=== PATIENT | male | born 1935 | race Caucasian/White ===

== ENCOUNTER 2018-05-29 08:00 | Inpatient (IN) | payer OTHER ==
--- NOTE | 2018-05-29 09:11 | RAD REPORT ---
EXAM DESCRIPTION: RAD - Chest Pa And Lat (2 Views) - 05/29/2018 8:33 am CLINICAL HISTORY: Preop chest, pending left knee surgery, history of pacemaker and stent placement, hypertension COMPARISON: February 2017 TECHNIQUE: PA and lateral views of the chest were obtained. FINDINGS: The lungs are clear of an acute infiltrate, failure or mass lesion. Patient has chronic in terstitial lung disease matching the prior study. Left subclavian pacemaker in place. Heart size is normal and central vasculature is within normal limits. No pleural effusion or pneumothorax seen. No acute bony finding noted. No aortic abnormality. IMPRESSION: Mild baseline chronic interstitial lung disease similar to March 21. No acute finding .
[2018-05-29 09:13] LABS: Absolute Lymphocytes (CBC) 1.5 K/uL (0.7-4.9); Absolute Neutrophil 5.6 K/uL (1.8-8.0); Eosinophils % 4.9 % (0-4.4); Hematocrit 42.2 % (39.6-49.0); Lymphocytes % 17.1 % (15.3-44.8); MCH 31.5 pg (27.0-35.0); MCV 92.8 fL (80-100); MPV 8.8 fL (7.6-11.3); RBC Red Blood Cell Count 4.54 M/uL (4.33-5.43)
[2018-05-29 09:17] LABS: Protime INR 0.96; Urine Appearance CLEAR; Urine Bilirubin NEGATIVE (NEG); Urine Blood NEGATIVE (NEG); Urine Color YELLOW; Urine Glucose NEGATIVE (NEG); Urine Protein NEGATIVE (NEG); Urine Specific Gravity 1.025 (1.005-1.030); Urine Urobilinogen 0.2 mg/dL (0.2-1.0); Urine pH 5.5 (5.0-7.0)
[2018-05-29 09:18] LABS: Urine Microscopic Reflex NO UMIC
[2018-05-29 09:29] LABS: Albumin 3.6 g/dL (3.4-5.0); Bilirubin Direct 0.1 mg/dL (0-0.2); Bilirubin Total 0.4 mg/dL (0.2-1.0)
[2018-05-29 09:30] LABS: Albumin 3.6 g/dL (3.4-5.0); Bilirubin Total 0.4 mg/dL (0.2-1.0); Potassium 3.8 mmol/L (3.5-5.1); Protein, Total 6.9 g/dL (6.4-8.2)
--- NOTE | 2018-05-29 15:19 | EKG ---
Test Date: 2018-05-29 Test Time: 08:19:55 [employer]: JD MEASUREMENT RESULTS: Intervals: Rate: 64 RI: 216 QRSD: 174 QT: 456 QTc: 470 [place]: P: 44 RI: 216 QRS: 245 T: 13 INTERPRETIVE STATEMENTS: Atrial-Ventricular Dual-Paced rhythm occasional premature atrial complexes Abnormal ECG Compared to ECG 08/14/2015 16:07:48 significant changes have occurred, paced rhythm is now present Electronically Signed On 05-29-18 15:19:01 CDT by Farhan Perez
--- OUTSIDE RECORDS SUMMARY | 2018-06-04 05:51 | XMS REPORT | Clinical Summary ---
:1935 Author Organization [facility] Address [address] [place] [address] Care Team Providers Name Role Phone Josue Blanco MD Primary Care Provider Allergies Active Allergy Reactions Severity Noted Date Comments Codeine 09/05/2016 Current Medications Prescription Sig. Disp. Refills Start Date End Date Status amLODIPine (NORVASC) 10 Take 10 mg 3 08/29/2016 Active mg tablet by mouth once daily. levothyroxine Take 100 3 06/24/2016 Active (SYNTHROID, LEVOXYL) 100 mcg by mcg tablet mouth once daily. lisinopril TAKE 1 3 07/04/2016 Active (PRINIVIL,ZESTRIL) 20 mg TABLET tablet (20MG) BY ORAL ROUTE 2 TIMES EVERY DAY hydroCHLOROthiazide Take 12.5 Active (HYDRODIURIL) 12.5 MG mg by mouth tablet daily. aspirin (ASPIR-81) 81 MG Aspir-81 Active enteric coated tablet metoprolol tartrate Take 1 180 tablet 3 11/13/2017 11/14/19 Active (LOPRESSOR) 50 mg tablet tablet (50 19 mg total) by mouth 2 (two) times a day. carvedilol (COREG) 6.25 Take 1 180 tablet 3 11/09/2016 11/10/19 MG tablet tablet 18 (6.25 mg total) by mouth 2 (two) times a day with meals. carvedilol (COREG) 3.125 TAKE 1 11/14/19 Discontinued MG tablet TABLET BY 18 MOUTH TWICE A DAY Active Problems Problem Noted Date Shortness of breath 09/05/2016 Coronary artery disease involving mary's igloo coronary artery of mary's igloo heart 09/05 without angina pectoris History of pacemaker 09/05/2016 Essential hypertension 09/05/2016 Pure hypercholesterolemia 09/05/2016 Encounters Date Type Specialty Care Team Description 05/07/2018 Office Visit Cardiology Tony Colbert MD Coronary artery disease involving mary's igloo coronary artery of mary's igloo heart without angina pectoris (Primary Dx); History of pacemaker 11/13/2017 Office Visit Cardiology Tony Colbert MD Coronary artery disease involving mary's igloo coronary artery of mary's igloo heart without angina pectoris (Primary Dx); History of pacemaker after 06/03/2017 Family History Medical History Relation Name Comments Heart disease Sister Hypertension Sister Relation Name Status Comments Father Mother Sister Social History Tobacco Use Types Packs/Day Years Used Date Former Smoker Smokeless Tobacco: Never Used Alcohol Use Drinks/Week oz/Week Comments No Sex Assigned at Date Recorded Not on file Last Filed Vital Signs Vital Sign Reading Time Taken Blood Pressure 173/79 05/07/2018 3:01 PM CDT Pulse 60 05/07/2018 3:01 PM CDT Temperature - - Respiratory Rate - - Oxygen Saturation - - Inhaled Oxygen Concentration - - Weight 97.5 kg (215 lb) 05/07/2018 3:01 PM CDT Height 177.8 cm (5' 10") 05/07/2018 3:01 PM CDT Body Mass Index 30.85 05/07/2018 3:01 PM CDT Plan of Treatment Date Type Specialty Care Team Description 11/05/2018 Office Visit Cardiology Tony Colbert MD [address] [place] [id number] Health Maintenance Due Date Last Done Comments SHINGRIX VACCINE (#1) 1984 ZOSTER VACCINE 1994 PNEUMOCOCCAL POLYSACCHARIDE VACCINE AGE 65 AND OVER 1999 PNEUMOCOCCAL-13 1999 INFLUENZA VACCINE 02/27/2018 Procedures Procedure Name Priority Date/Time Associated Diagnosis Comments CV PACEMAKER DEFIB ILR Routine 05/07/2018 12:00 AM INTERROGATION CDT after 06/03/2017 Results CV pacemaker defib or ilr interrogation (05/07/2018) Narrative Performed At after 06/03/2017 Insurance Payer Benefit Plan / Group Subscriber ID Type Phone Address A[employer]NA MEDICARE AETNA MEDICARE HMO/PPO [facility] xxxxxxxx HMO
--- OUTSIDE RECORDS SUMMARY | 2018-06-04 05:51 | XMS REPORT ---
:1935 Author Organization [employer] Care Team Providers Name Role Phone Augustine Perez Provider Role Unavailable Allergies, Adverse Reactions, Alerts Substance Reaction Event Type Latex Info Not Available Drug Allergy codeine Info Not Available Drug Allergy Problems Problem Type Condition Code Onset Dates Condition Status Assessment Primary osteoarthritis of right M17.11 Active knee Assessment Primary osteoarthritis of left knee M17.12 Active Problem Other chronic pain G89.29 Active Problem Pain in left knee M25.562 Active Problem Pain in right knee M25.561 Active Assessment Pain in right knee M25.561 Active Assessment Pain in left knee M25.562 Active Problem 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 Medications Medication Code Code Instructions Start End Status Dosage System Date Date Amlodipine Besylate ND 0 Active not defined Metoprolol Tartrate [facility] 93845-24 Active not 94- defined Hydrochlorothiazide [facility] 11507-97 Active not 20- defined Aspir-81 [facility] 20892-67 Active not defined Lisinopril [facility] 34654-20 Active not 07-30 defined Levothyroxine Sodium [facility] 97386-45 Active not 07-30 defined Results No Known Results Summary Purpose [employer] Submission
[2018-06-04] MEDS ORDERED: Ringers Lactate 1,000 ML IV ONE ×2 (06:14→08:52)
[2018-06-04] MEDS ORDERED: CEFAZOLIN/SWI 1gm 1 GM/10 ML SYR ONE (06:14)
[2018-06-04] MEDS ORDERED: TRANEXAMIC ACID 1,000 MG in NA CHLORIDE 0.9% 50 ML IV SCH (07:00)
[2018-06-04] MEDS ORDERED: BUPIVACA 0.25%/EPI 0.0005% MDV 50 ML VIAL ONE (07:06)
[2018-06-04] MEDS ORDERED: NA CHLORIDE 0.9% 250 ML ONE (07:06)
[2018-06-04] MEDS ORDERED: DEXAMETHASONE 4 MG/ML VIAL ONE (07:12)
[2018-06-04] MEDS ORDERED: ROPLVACAINE HCL 40 ML ONE (07:12)
[2018-06-04] MEDS ORDERED: MIDAZOLAM HCL 2 MG/2 ML INJ ONE (07:13)
[2018-06-04] MEDS ORDERED: FENTANYL CITR 250 MCG/5 ML ONE (07:14)
[2018-06-04] MEDS ORDERED: PROPOFOL 200 MG/20 ML VIAL IV ONE (07:42)
[2018-06-04] MEDS ORDERED: LIDOCAINE 1% MPF 2 ML AMPULE ONE (07:43)
--- NOTE | 2018-06-04 11:45 | P.BOP ---
Preoperative diagnosis: LEFT KNEE PRIMARY OSTEOARTHRITIS Postoperative diagnosis: SAME Primary procedure: LEFT KNEE TKA POST. STABILIZED ROTATING PLATFORM W/ COMP. OTONIEL. TIBIAL CUT Marketing Information Coordinator: RASHAD AKINS (GAVE 1st ASSIST THROUGH CASE) Estimated blood loss: 100 mL Specimen: SOFT TISSUE AND BONE SHARDS DEBRIDED Findings: EBURNATED BONE MED. FEM. COMPARTMENT Anesthesia: General Complications: None Implants: RP REVISION TRAY sz4;SIGMA 4 PS FEMUR;[id number];INSERT RP4 x 10mm Fluids & blood products: SIMPLEX HV W/GENT; INJECTED 0.25%MARCAINE 30 mL Transferred to: Recovery Room Condition: Good
[2018-06-04] MEDS ORDERED: DOCUSATE NA 100 MG CAP PO PRN (12:13)
[2018-06-04] MEDS ORDERED: ONDANSETRON 4 MG/2 ML VIAL IV PRN (12:13)
[2018-06-04] MEDS ORDERED: MAGNESIUM HYDROXIDE 8% 30 ML PO PRN (12:13)
[2018-06-04] MEDS: MEPERIDINE HCL 50 MG/ML AMP ONE ×3 (12:30→12:45)
[2018-06-04 12:37] LABS: Hematocrit 40.4 % (39.6-49.0)
--- NOTE | 2018-06-04 13:01 | RAD REPORT ---
EXAM DESCRIPTION: RAD - Knee Left 2 View - 06/04/2018 12:51 pm CLINICAL HISTORY: PACU S/P L TKA COMPARISON: No comparisons FINDINGS: Left total knee arthroplasty has been performed. Skin annmarie are noted. A small amount of air is present in the joint space. No unexpected hardware finding.
[2018-06-04] MEDS: Ringers Lactate 1,000 ML IV SCH (13:46)
[2018-06-04] MEDS: MORPHINE 4 MG/ML SYR IV PRN ×2 (14:12→20:49)
[2018-06-04] MEDS: CEFAZOLIN/SWI 1gm 1 GM/10 ML SYR IV SCH ×2 (15:14→20:38)
[2018-06-04 17:42] VITALS: BMI 30.1
[2018-06-04] MEDS ORDERED: LISINOPRIL 20 MG TAB PO SCH (21:00)
[2018-06-04] MEDS ORDERED: METOPROLOL TAR 50 MG TAB PO SCH (21:00)
[2018-06-05] MEDS: MORPHINE 4 MG/ML SYR IV PRN ×2 (01:55→13:25)
[2018-06-05] MEDS: LEVOTHYROXINE SOD 0.1 MG TAB PO SCH (05:29)
[2018-06-05] MEDS: AMLODIPINE 10 MG TAB PO SCH (05:30)
[2018-06-05] MEDS: ENOXAPARIN 40 MG/0.4 ML SQ SCH (05:31)
[2018-06-05 05:38] LABS: Hematocrit 36.9 % (39.6-49.0)
[2018-06-05] MEDS: hydroCHLOROthiazide 12.5 MG CAP PO SCH (05:56)
[2018-06-05] MEDS: HYDROCODONE/APAP 7.5/325 MG TAB PO PRN ×4 (05:56→21:26)
[2018-06-05] MEDS ORDERED: hydroCHLOROthiazide 12.5 MG CAP PO SCH (06:00)
[2018-06-05] MEDS ORDERED: AMLODIPINE 10 MG TAB PO SCH (06:00)
[2018-06-05] MEDS: Ringers Lactate 1,000 ML IV SCH (08:13)
[2018-06-05] MEDS: METOPROLOL TAR 50 MG TAB PO SCH ×2 (09:03→21:28)
[2018-06-05] MEDS: LISINOPRIL 20 MG TAB PO SCH ×2 (09:03→21:29)
[2018-06-05] MEDS: ASPIRIN EC 81 MG TAB PO SCH (09:06)
--- NOTE | 2018-06-05 20:41 | P.PN ---
Date of Service: 06/05/18 (POD#1) S: THIS PATIENT IS COMPLAINING OF PAIN THAT RADIATES FROM THE POSTERIOR LEFT BUTTOCK DOWN TO THE BOTTOM OF HIS LEFT FOOT. HE IS DESCRIBING PAIN INTENSITIES 8, 0, 5, 8, 6, 8/10. THE PATIENT HAS STOPPED HIS CPM BECAUSE OF HIS DISCOMFORT. HE WAS COMPLAINING OF DIZZINESS DURING HIS MORNING PHYSICAL THERAPY SESSION, BUT WAS ABLE TO STAND BY THE BED AND MOVED TO SUPPORTED SITTING WITH THE MAXIMUM ASSIST. O: VSS; AFEBRILE; HGB 12.7 THIS MORNING, DOWN FROM 13.7 POSTOPERATIVELY. BANDAGE IS CLEAN AND DRY. NEUROVASCULAR EXAM IS INTACT. JACKSON'S SIGN IS NEGATIVE. REVIEW OF POSTOPERATIVE X-RAY SHOWS EXCELLENT POSITION FOR THIS PATIENT'S LEFT TOTAL KNEE ARTHROPLASTY COMPONENTS. SO FAR POSTOPERATIVELY THE PATIENT AT 1 pm HAS TAKEN A TOTAL OF FOUR NORCO 7.5/325 TABLETS, 2 TABLETS TAKEN AT APPROXIMATELY 6 am AND 10 am. HE HAS ALSO TAKEN 4 MG IV DOSES OF MORPHINE AT 2:15 pm AND 9 pm YESTERDAY WITH THE THIRD DOSE TAKEN AT 2 am TODAY. A: THIS PATIENT'S INTENSITY OF PAIN RADIATING FROM THE POSTERIOR HIP TO THE BOTTOM OF THE FOOT IS NOT AN UNUSUAL FLARE OF SCIATICA SOMETIMES CAUSED BY SITTING UP WITH THE HOSPITAL BED AND THE CPM MACHINE REPETITIVELY REACHING THE STRAIGHT LEG 0 POSITION SIMULATING A PROVOCATIVE STRAIGHT LEG RAISING TEST FOR SCIATICA. THE PATIENT HAS BEEN INSTRUCTED TO KEEP THE HEAD OF THE BED FLAT WHEN USING HIS CPM MACHINE TO AVOID THE STRETCH TO THE SCIATIC NERVE. I HAVE ADJUSTED THE PATIENT'S MORPHINE DOSE TO BE REDUCED TO 2 MG TO AVOID DIZZINESS. P: CONTINUE MOBILIZATION TOLERATED. I HAVE EMPHASIZED BED EXERCISES TO BE DONE BETWEEN THERAPY SESSIONS WITH UPPER AND LOWER EXTREMITY EXERCISES.
--- NOTE | 2018-06-05 23:04 | CON ---
Date of Consultation: 06/04/2018 Reason For Consultation: Medical management. History Of Present Illness: This is an 83-year-old male patient who had left knee replacement surger y done today by Dr. Mohan and Dr. Perez, and a consultation was requested for medical management. I saw him this evening. His daughter and son-in-law were present at bedside. The patient denied any n ausea, vomiting, abdominal pain. No pain in his left knee area. His last bowel movement was this mo rning before coming to the hospital for the surgery. Denies any chest pain, shortness of breath. Medications: List reviewed. Allergies: TO ADHESIVE TAPE AND CODEINE. Review of Systems: Musculoskeletal: Left knee pain due to arthritis. All other systems reviewed and negative. Family History: Not pertinent. Social History: Negative for smoking and alcohol use. Past Surgical History: Coronary artery angioplasty with stent placement and carotid artery stent constantino cement by Dr. Colbert. Past Medical History: Significant for hypertension, hyperlipidemia, coronary artery disease, and car otid artery stenosis, hypothyroidism, and osteoarthritis. Physical Examination: Vital Signs: Temperature 97.6, pulse 61, respiratory rate 17, blood pressure 138/62, oxygen saturati on 95%. Height 5 feet 10 inches, weight 210 pounds. General: Awake, alert, oriented, not in distress. HEENT: Head atraumatic, normocephalic. Conjunctivae nonerythematous. Sclerae white. Mouth, no thr ush or edema noted. Ears/Nose, no mass, lesion, discharge noted. Neck: Supple. No JVD, lymph nodes, bruit, thyromegaly noted. Lungs: Bilateral good equal air entry. Clear to auscultation. No rhonchi. No rales. Heart: Normal heart sounds, no murmur or gallop. Abdomen: Soft, bowel sounds normal. No guarding, rigidity, tenderness, mass, hepatosplenomegaly, dis tention, or bruit noted. Extremities: Left foot, dorsalis pedis artery pulsation is 2+. Skin: No rash, ulcer, cellulitis. Lymphatics: No lymph node enlargement in neck, supraclavicular, infraclavicular region. Neuro: No focal neurological deficit. Chest: Unremarkable. External Genitalia: Deferred. Rectal: Deferred. Laboratory Data: On May 29, 2018, white count 8.7, hemoglobin 14.3, platelets 302. Sodium was 1 42, potassium 3.8, chloride 108. His bicarb 27, BUN 26, creatinine 0.90, glucose 72. Liver function tests unremarkable. Urinalysis was negative. Impression: 1.Coronary artery disease. 2.Carotid artery stenosis. 3.Hypertension. 4.Hyperlipidemia. 5.Hypothyroidism. Plan: We will go ahead and continue current home medications per order. I have written parameters w hen to hold blood pressure medication. DVT prophylaxis will be given using Lovenox per order. Pain medications will be continued. We will see him tomorrow for followup. Details and plan of treatment discussed with the patient. Thank you very much for allowing me to participate in his care. I will see him for medical managemen t during this hospitalization. DEANDRE/BLAISE Voice ID: [id number] Report ID: [id number]
--- NOTE | 2018-06-05 23:17 | PN ---
Date of Progress Note: 06/05/2018 Subjective: The patient was seen this morning for followup. 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 No nausea, vomiting. No chest pain, shortness of breath. Objective: Vital Signs: Reviewed. HEENT: Unremarkable. Lungs: Clear to auscultation. Heart: Sounds normal. Abdomen: Soft. Bowel sounds normal. No guarding, rigidity, tenderness, or distention. Extremities: No leg edema. Laboratory Data: Hemoglobin today 12.7. Impression: 1.Hypertension. 2.Hyperlipidemia. 3.Hypothyroidism. 4.Coronary artery disease. 5.Carotid artery stenosis. 6.Anemia due to acute blood loss. Plan: We will go ahead and continue current medications. We will continue current antihypertensive medication, and DVT prophylaxis, and pain medication. I will see him tomorrow for followup. Mariano sosa to start working with the patient per order. DEANDRE/BLAISE Voice ID: [id number] Report ID: [id number]
[2018-06-05] MEDS: MORPHINE 2 MG/ML SYR IV PRN (23:30)
[2018-06-06] MEDS: Ringers Lactate 1,000 ML IV SCH (04:13)
[2018-06-06 05:10] LABS: Hematocrit 38.8 % (39.6-49.0)
[2018-06-06] MEDS: HYDROCODONE/APAP 7.5/325 MG TAB PO PRN ×2 (05:29→12:11)
[2018-06-06] MEDS: LEVOTHYROXINE SOD 0.1 MG TAB PO SCH (05:30)
[2018-06-06] MEDS: AMLODIPINE 10 MG TAB PO SCH (05:31)
[2018-06-06] MEDS: hydroCHLOROthiazide 12.5 MG CAP PO SCH (05:32)
[2018-06-06] MEDS: ENOXAPARIN 40 MG/0.4 ML SQ SCH (05:33)
--- NOTE | 2018-06-06 07:03 | OP ---
Date of Procedure: 06/04/2018 Surgeon: Augustine Perez MD Clinical Office Technician: MIGDALIA Crisostomo. Gave very necessary first cook services throughout the case. Postoperative Diagnosis: Left knee primary osteoarthritis. Postoperative Diagnosis: Left knee primary osteoarthritis. Primary Procedure: Left knee total knee arthroplasty with posterior stabilized rotating platform, Si gma knee with computer navigation. Indications: This 83-year-old patient has had persistent pain and giving way symptoms in his left kn ee with severe osteoarthritis noted in medial compartments of both knees. The patient has elected to proceed with left total knee arthroplasty after discussion of risks and benefits with all questions answered. Technique: The patient was taken to the operating room and given a general anesthetic after being pl aced in the supine position on the operative table. The bolster was placed under the left hip and a rest was placed for the foot to be supported with the knee in 90 degrees flexion. The tourniquet was applied around the proximal thigh. Time-out was called and all pertinent facts were discussed with the time-out ritual. It was agreed to proceed afterwards with the planned operation. The left lower extremity was prepped and draped in the usual fashion with Betadine scrub and Betadine paint followe d by a DuraPrep for the foot, which was held in traction during prepping of the hip and leg. After t he DuraPrep of the foot was applied, then impervious stockinette was placed over the foot and up to m id tibial area with a Coban wrap. Then, the incision was marked on the anterior aspect of the knee. The knee was then wrapped with an Esmarch bandage for exsanguination and the tourniquet was raised t o 250 mmHg and left up for 120 minutes. It was then released for 15 minutes prior to cementing and t hen elevated for 32 minutes for cementing technique. The incision was made anteriorly from 3 to 4 cm above the superior pole of the patella, across the patella and down to the medial side of the tibial tubercle. A medial parapatellar capsular incision was carried out sharply with eversion of the rosen lla. Measurement of thickness of the patella was 27 mm. The 38 mm diameter oval dome patella was ch osen and the cutting jig for the patella was adjusted and the articular surface was cut. PEG holes w ere drilled and the patellar trial prosthesis placed in position, exactly measured 27 mm again. The patellar trial was removed and a metal jamie was put in its place and anterior sharp debridement was c arried out in the joint space and proximally at the distal end of the femoral shaft just above the ar ticular margin. Two 3-mm threaded pins were placed on the medial aspect of the distal femur within t he incision and 2 punctures were placed appropriately close to midshaft tibia where drill holes were used to place the 2 threaded pins for support of the tibial array. Both arrays were being tightened and placed in position when an O-ring broke in the proximal apparatus holding the array. The array w as not stable at that time, and a small portion of a suture holding plastic packet was cut to fit whe re the O-ring had been, and it was possible to tighten the screw for holding the proximal array. The array was held in good position during the first part of the surgery while the tibial cut was being made. With the array in position, registering the femur was carried out followed by registering the tibia in sequence as indicated by the computer program. The system settled for a Sigma size 4 femora l and tibial prosthetic components. The indicated position for the cutting jig was navigated and sec ured with pins and the tibial cut was made and verified with a flat-footed array. Then, the tensinom eters were placed in the knee and the measured joint spaces were out of the realm of feasible and it was determined that the proximal femoral array had become loose and was no longer reliable. At that point, with the tibial cut made at the appropriate position, it was decided to make the femoral cut w ith instrumentation, so the threaded pins and femoral and tibial array were removed and the guide for applying the cutting jig for the distal femur was put in position, the proximal femoral cutting jig was secured with pins taking 1 cm of the distal femur. This was the distal cut that was made and the n the sizing jig was placed in position with 5 degrees of valgus set. The jigs were positioned on th e intramedullary nail that was placed in position after drilling 8-10 mm above the posterior cruciate ligament origin. After the 4-in-1 cutting jig was navigated into position, the anterior cuts and po sterior cuts were made and then pins were removed so chamfer cuts could be made as well. Then, the i ntramedullary nail was removed and bone shards were used to plug the intramedullary opening to preven t persistent hemorrhage from that area. The guide for the intracondylar notch cut was placed in posi tion and secured with pins. Those cuts were made and the femoral trial was size 4, was placed in pos ition. At each step, the extension and flexion blocks were used to verify the appropriate space for equal flexion and extension joints, and the proximal tibia was prepared for insertion of the revision size, tibial tray size 4 for the rotating platform posterior stabilized Sigma knee. Trial component s were put in position and the full extension and flexion and stability of the knee were verified wit h all trial components in place. Then, all trial components were removed and Simpulse lavage was use d to cleanse and irrigate the knee. The tourniquet was let down for 15 minutes, having come to the 1 20 minute limit. Simpulse lavage was continued, and the end of the distal femur and proximal tibia we re then dried with suction and sterile lap pads. The tourniquet was elevated after 15 minutes and le ft up for an additional 32 minutes during cementing. Two batches of simplex HV with gentamicin cemen t were mixed and placed in a cement gun for pressurized injection. The tibial component was seated a fter injecting cement in the proximal tibia and intramedullary steel space. The component was seated well and excess cement was curetted away. The injections gun was used for inserting cement in the d istal femur cancellous surfaces. Drill holes had been placed for interdigitation of the cement. Onc e the cement was in place on both the distal femur and the prosthetic component, it was tapped into p osition and held there while a 10-mm trial insert was placed between the tibial and femoral component s and the knee was fully extended and left very still during the setting of the cement. While that w as setting, the remaining cement was injected into the cancellous surface of the patella and the 38 m m oval dome patella component was clamped into position with excess cement curetted away. Once all c omponents were well seated and cemented, then the trial 10-mm insert was deemed to be the appropriate size and the rotating platform size 4 x 10 mm component was opened and snapped into the knee. Again , range of motion was excellent, and there was stability to anterior drawer and appropriate 1-2 degre e tilt, right and left, for varus and valgus stability. Simpulse lavage was utilized again for irrig ation and then closure was effected using #1 Vicryl for fascial layers, 2-0 Vicryl for subcutaneous l mckay, and skin annmarie for the skin. The incision was injected with 30 mL of 0.25% Marcaine plain. Estimated blood loss was 100 mL. An Aquacel bandage was reinforced with ABD pad and soft roll followed by an Jacob wrap. The patient was then taken to the recovery room having tolerated this procedure well. GREGG/BLAISE Voice ID: [id number] Report ID: [id number]
[2018-06-06] MEDS ORDERED: MAGNESIUM HYDROXIDE 8% 30 ML PO ONE (07:35)
[2018-06-06] MEDS ORDERED: DOCUSATE NA/SENNA CONC 1 TAB PO PRN (07:35)
[2018-06-06] MEDS: MORPHINE 2 MG/ML SYR IV PRN ×3 (10:05→20:10)
[2018-06-06] MEDS: METOPROLOL TAR 50 MG TAB PO SCH ×2 (11:04→20:13)
[2018-06-06] MEDS: ASPIRIN EC 81 MG TAB PO SCH (11:04)
[2018-06-06] MEDS: LISINOPRIL 20 MG TAB PO SCH ×2 (11:06→20:14)
--- NOTE | 2018-06-06 18:15 | P.PN ---
Date of Service: 06/06/18 (POD#2) S: THIS PATIENT CONTINUES TO COMPLAIN OF PAIN THAT NOW RADIATES FROM THE ANTERIOR LEFT BY DOWN TO BEHIND HIS LEFT ANKLE. HE IS DESCRIBING PAIN INTENSITIES 5, 8, 0, 8/10. THE PATIENT HAS STOPPED HIS CPM BECAUSE OF HIS DISCOMFORT. HE NO LONGER COMPLAINS OF DIZZINESS. DURING HIS MORNING PHYSICAL THERAPY SESSION, HE STOOD AND TOOK 2 STEPS INDICATING THERE WAS NO PAIN WHILE STANDING. THIS AFTERNOON HE WAS ABLE TO WALK 35 FEET WITH A ROLLING WALKER, AND THERAPY DESCRIBED THE SESSIONS WELL TOLERATED. O: VSS; AFEBRILE; HGB 13.0 THIS MORNING, STABLE FROM 12.7 YESTERDAY. BANDAGE IS CLEAN AND DRY AND INTACT. NEUROVASCULAR EXAM IS INTACT. JACKSON'S SIGN IS NEGATIVE. PATIENT IS USING LESS MORPHINE TODAY. 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 THE PATIENT HAS BEEN INSTRUCTED TO KEEP THE HEAD OF THE BED FLAT WHEN USING HIS CPM MACHINE TO AVOID THE STRETCH TO THE SCIATIC NERVE. 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 P: CONTINUE MOBILIZATION TOLERATED. THE PATIENT MAY TRY SLEEPING ON HIS RIGHT SIDE WITH A PILLOW OR 2 BETWEEN HIS LEGS TO ELEVATE THE LEFT LOWER EXTREMITY. PAPERWORK HAS BEEN SUBMITTED TO [facility].
--- NOTE | 2018-06-06 22:51 | PN ---
Date of Progress Note: 06/06/2018 Subjective: The patient was seen this morning for followup. No new complaints or problems reported by patient except some pain in his left knee and pain medication helps to control the pain. Yesterda y, he did participate with physical therapy and was able to stand at the bedside. Has not had a mickey l movement since he is in the hospital. Denies any abdominal pain, nausea, vomiting. Objective: Vital Signs: Reviewed HEENT Examination: Unremarkable. Lungs: Clear to auscultation. Heart: Sounds normal. Abdomen: Soft. Bowel sounds normal. No guarding, rigidity, tenderness, or distention. Extremities: No leg edema. Laboratory Data: Hemoglobin 13. Impression: 1.Coronary artery disease. 2.Hypertension. 3.Carotid artery stenosis. 4.Hyperlipidemia. 5.Hypothyroidism. 6.Anemia, due to acute blood loss. 7.Constipation. Plan: We will continue current medication, continue stool softener Senokot-S two tablets at bedtime per order, and milk of magnesia 1 time dose was ordered today. Continue other current medication. W e will discontinue his Lovenox and start him on Xarelto for DVT prophylaxis. DEANDRE/MODL Voice ID: [id number] Report ID: [id number]
[2018-06-07] MEDS: MORPHINE 2 MG/ML SYR IV PRN ×2 (04:00→11:29)
[2018-06-07] MEDS: AMLODIPINE 10 MG TAB PO SCH (06:00)
[2018-06-07] MEDS: hydroCHLOROthiazide 12.5 MG CAP PO SCH (06:00)
[2018-06-07] MEDS: LEVOTHYROXINE SOD 0.1 MG TAB PO SCH (06:00)
[2018-06-07] MEDS: HYDROCODONE/APAP 7.5/325 MG TAB PO PRN ×2 (06:01→17:29)
[2018-06-07] MEDS: LISINOPRIL 20 MG TAB PO SCH ×2 (08:55→21:16)
[2018-06-07] MEDS: RIVAROXABAN 10 MG TABLET PO SCH (08:55)
[2018-06-07] MEDS: ASPIRIN EC 81 MG TAB PO SCH (08:55)
[2018-06-07] MEDS: METOPROLOL TAR 50 MG TAB PO SCH ×2 (08:56→21:16)
--- NOTE | 2018-06-07 14:43 | PN ---
Date of Progress Note: 06/07/2018 Subjective: The patient was seen this morning for followup. No new complaints or problems reported. No nausea or vomiting yesterday. He did walk with physical therapy. Objective: Vital Signs: Reviewed. HEENT: Unremarkable. Lungs: Clear to auscultation. Heart: Sounds normal. Abdomen: Soft. Bowel sounds normal. No guarding, rigidity, tenderness, or distention. Extremities: No leg edema. Laboratory Data: Hemoglobin 12.7 today. Impression: 1.Hypertension. 2.Hyperlipidemia. 3.Coronary artery disease. 4.Hypothyroidism. 5.Acute blood loss anemia. 6.Carotid artery stenosis. Plan: We will continue current medication. The patient is on DVT prophylaxis with Xarelto, should b e continued for 2 weeks upon discharge to correction as he tells me that his plan is to go to [facility] to finish the rehab. Medically he is stable for discharge whenever it is determined okay for him to get discharged from the hospital by Dr. Perez. While in the hospital, I will continue to se e him, but upon discharge, the patient should continue all his usual home medication and take Xarelto 10 mg daily for 2 weeks for DVT prophylaxis. This was explained to the patient as well. DEANDRE/BLAISE Voice ID: [id number] Report ID: [id number]
[2018-06-08] MEDS: HYDROCODONE/APAP 7.5/325 MG TAB PO PRN ×3 (02:27→13:54)
[2018-06-08] MEDS: AMLODIPINE 10 MG TAB PO SCH (05:29)
[2018-06-08] MEDS: LEVOTHYROXINE SOD 0.1 MG TAB PO SCH (05:29)
[2018-06-08] MEDS: hydroCHLOROthiazide 12.5 MG CAP PO SCH (05:29)
[2018-06-08 05:31] LABS: Hematocrit 34.9 % (39.6-49.0)
[2018-06-08] MEDS: LISINOPRIL 20 MG TAB PO SCH ×2 (09:00→20:09)
[2018-06-08] MEDS: METOPROLOL TAR 50 MG TAB PO SCH ×2 (09:00→20:09)
[2018-06-08] MEDS: ASPIRIN EC 81 MG TAB PO SCH (09:41)
[2018-06-08] MEDS: RIVAROXABAN 10 MG TABLET PO SCH (09:41)
[2018-06-08] MEDS ORDERED: BISACODYL 10 MG RECTAL SUPP PR ONE (19:12)
[2018-06-09] MEDS: HYDROCODONE/APAP 7.5/325 MG TAB PO PRN ×4 (00:31→21:58)
--- NOTE | 2018-06-09 02:51 | PN ---
Date of Progress Note: 06/08/2018 Subjective: The patient was seen this evening for followup. No new complaints or problems reported by him. He has not had a bowel movement since he has been in hospital. Denies any abdominal pain, n ausea, vomiting. He is on stool softener and laxative, so far it has not helped him. Objective: Vital Signs: Reviewed. HEENT: Unremarkable. Lungs: Clear to auscultation. Heart: Sounds normal. Abdomen: Soft. Bowel sounds normal. No guarding, rigidity, tenderness, or distention. Extremities: No leg edema. Laboratory Data: Hemoglobin 12.1. Impression: 1.Constipation. 2.Anemia due to acute blood loss. 3.Coronary artery disease. 4.Hypertension. 5.Hyperlipidemia. Plan: We will continue current medications. Continue current DVT prophylaxis, current antihypertens fei medication. His pain medication seems to be working very well providing adequate pain control. We will go ahead and give Dulcolax rectal suppository x1 dose today. I will see him tomorrow for fol lowup. We will repeat blood work tomorrow morning. DEANDRE/MODL Voice ID: [id number] Report ID: [id number]
[2018-06-09] MEDS: hydroCHLOROthiazide 12.5 MG CAP PO SCH (05:54)
[2018-06-09] MEDS: AMLODIPINE 10 MG TAB PO SCH (05:54)
[2018-06-09] MEDS: LEVOTHYROXINE SOD 0.1 MG TAB PO SCH (05:54)
[2018-06-09 05:57] LABS: Absolute Lymphocytes (CBC) 1.5 K/uL (0.7-4.9); Absolute Monocytes 1.1 K/uL (0.1-1.3); Absolute Neutrophil 7.7 K/uL (1.8-8.0); Basophils % 0.6 % (0-1.3); Hematocrit 34.8 % (39.6-49.0); Lymphocytes % 13.5 % (15.3-44.8); MCH 32.8 pg (27.0-35.0); MCV 92.7 fL (80-100); MPV 8.7 fL (7.6-11.3); Monocytes % 10.1 % (3.3-12.3); RBC Red Blood Cell Count 3.75 M/uL (4.33-5.43)
[2018-06-09 06:17] LABS: Magnesium 2.3 mg/dL (1.8-2.4); Potassium 4.1 mmol/L (3.5-5.1)
[2018-06-09] MEDS: ASPIRIN EC 81 MG TAB PO SCH (08:34)
[2018-06-09] MEDS: RIVAROXABAN 10 MG TABLET PO SCH (08:34)
[2018-06-09] MEDS: LISINOPRIL 20 MG TAB PO SCH ×2 (08:35→21:00)
[2018-06-09] MEDS: METOPROLOL TAR 50 MG TAB PO SCH ×2 (08:35→21:00)
--- NOTE | 2018-06-09 13:18 | P.PN ---
Date of Service: 06/07/18 (POD#3) S: THIS PATIENT COMPLAINS OF INTERMITENT PAIN WITH SPECIFIC MOVEMENTS, OVERALL BETTER THAN YESTERDAY. HE IS DESCRIBING PAIN INTENSITIES 8, 0, 6, 6/10. HIS CPM WAS OFF ALL MORNING SO AFTER PROM WARM UP, I REAPPLIED CPM, SLOWED SPEED TO 1 FROM 4, AND THE PATIENT WAS UNAWARE WHEN HIS KNEE REACHED 70* FLEXION. DURING HIS MORNING PHYSICAL THERAPY SESSION, HE STOOD AND TOOK 2 STEPS INDICATING THERE WAS NO PAIN WHILE STANDING. THIS AFTERNOON HE WAS ABLE TO WALK 22', 75' x 2 WITH A ROLLING WALKER, AND TOLERATED CPM AT 70*. O: VSS; AFEBRILE; HGB 12.7 THIS MORNING, STABLE FROM 12.7 YESTERDAY. BANDAGE IS CLEAN AND DRY AND INTACT. NEUROVASCULAR EXAM IS INTACT. JACKSON'S SIGN IS NEGATIVE. A: THIS PATIENT'S PAIN IS EPISODIC, IMPROVING DAILY. THE PATIENT WILL CONTINUE TO KEEP THE HEAD OF THE BED FLAT WHEN USING HIS CPM MACHINE TO AVOID STRETCH TO THE SCIATIC NERVE. HE DID BETTER LAST NIGHT WITH HIS USUAL SLEEP POSITION ON HIS RIGHT SIDE WITH A PILLOW BETWEEN HIS LEGS. P: CONTINUE MOBILIZATION TOLERATED. [facility] PLANNED FOR SUNDAY.
--- NOTE | 2018-06-09 13:42 | P.PN ---
Date of Service: 06/08/18 (POD#4) S: THIS PATIENT STILL WITH INTERMITTENT C/O PAIN WITH SPECIFIC MOVEMENTS. HE IS DESCRIBING PAIN INTENSITIES 4, 7, 4, 4/10. HIS CPM IS TOLERATED AT 75* FLEXION. DURING HIS MORNING PHYSICAL THERAPY SESSION, HE STOOD AND TOOK 2 STEPS INDICATING THERE WAS NO PAIN WHILE STANDING. TODAY HE WAS ABLE TO WALK 60 ', 40' x 2, AND 100' WITH A ROLLING WALKER. STARTING WITH TOE TOUCH POSITION FOR THE LEFT FOOT, HE WAS ABLE TO BEGIN HEEL STRIKE WBAT AFTER THE 1ST 40'. O: VSS; AFEBRILE; HGB 12.1 THIS MORNING. BANDAGE IS CLEAN AND DRY AND INTACT. NEUROVASCULAR EXAM IS INTACT. JACKSON'S SIGN IS MILDLY TENDER TO SIDE TO SIDE COMPRESSION. PATIENT STILL HAS DIFFICULTY WITH STRAIGHT LEG RAISING EFFORT WITH LLE. NURSE NOTED MILD ERYTHEMA BLUSH OVER MEDIAL JOINT LINE LEFT KNEE. APPEARS TO BE NO MORE THAN WHITE CELL ACTIVITY TO CLEAN UP POST-OP HEMATOMA. A: THIS PATIENTS PROGRESS IS ACCELERATING. IV MORPHINE DISCONTINUED YESTERDAY, NO COMPLAINTS. P: CONTINUE MOBILIZATION TOLERATED. [facility] STILL PLANNED FOR SUNDAY.
--- NOTE | 2018-06-09 13:55 | P.PN ---
Date of Service: 06/09/18 (POD#5) S: THIS PATIENT'S PAIN MUCH IMPROVED. HE IS DESCRIBING PAIN INTENSITIES ONLY 0, 6, 0, 0/10. HIS CPM IS TOLERATED AT 70* FLEXION. TODAY HE WAS ABLE TO WALK 150', AND 110' WITH A ROLLING WALKER. HE HAS BEEN ABLE TO SUPINE-SIT TRANSFER AND STAND-PIVOT TRANSFER WITH RW WITH STAND-BY ASSIST. O: VSS; AFEBRILE; HGB 12.3 THIS MORNING. BANDAGE IS CLEAN AND DRY AND INTACT. NEUROVASCULAR EXAM IS INTACT. MILD ERYTHEMA BLUSH OVER MEDIAL JOINT LINE LEFT KNEE HAS IMPROVED FROM YESTERDAY, RETREATED FROM ENCIRCLING LINE AND LESS WARMTH AND COLOR. CPM IN MOTION WITH NO COMPLAINTS. A: THIS PATIENTS PROGRESS IS STEADY. P: CONTINUE MOBILIZATION. [facility] PLANNED FOR SUNDAY. CONTINUE GAIT AND TRANSFERS WITH RW LLE WBAT. PROM & AAROM LEFT TKA. CHANGE BANDAGE PRIOR TO DISCHARGE WITH NEW AQUACEL TO COVER INCISIONS AFTER ALCOHOL SWABS. BANDAGE THEN TO REMAIN IN PLACE UNTIL APPT. TO MY OFFICE FOR REMOVAL OF WERNER. [place] 7.5/325 APAP 1 TAB P.O. Q 4 HRS. PRN PAIN,#40 XARELTO 10 MG 1 P.O. DAILY, #[address] ZENDEJAS REGARDING ASA 81 mg DAILY, HOLD OR CONTINUE.
--- NOTE | 2018-06-09 14:57 | PN ---
Date of Progress Note: 06/09/2018 Subjective: Patient was seen this morning for followup. The patient reports having large bowel move ment yesterday evening and early this morning. Feels much better after that. Denies any abdominal p ain, nausea, vomiting. No other new complaints or problems reported by him this morning. Objective: Vital Signs: Reviewed. HEENT: Examination unremarkable. Lungs: Clear to auscultation. Heart: Sounds normal. ABDOMEN: Soft. Bowel sounds normal. No guarding, rigidity, tenderness, or distention. Extremities: No leg edema. Laboratory Data: White count 10.8, hemoglobin 12.3, platelets 291. Sodium 141, potassium 4.1, chlor anant 104, bicarb 30, BUN 34, creatinine 1.20, glucose 108. Impression: 1.Hypertension. 2.Coronary artery disease. 3.Hyperlipidemia. 4.Constipation. 5.Anemia due to acute blood loss. Plan: The patient's constipation is well controlled now. We will continue current medication. His pain is well controlled with current pain medication. Continue current antihypertensive medication. I will see him tomorrow for followup. Discharged to go to tomorrow. Medically, patient is stable. The patient's BUN and creatinine have gone up today. The patient should drink more water to try to help address that problem. DEANDRE/MODL Voice ID: [id number] Report ID: [id number]
[2018-06-10] MEDS: HYDROCODONE/APAP 7.5/325 MG TAB PO PRN ×3 (04:16→18:03)
[2018-06-10] MEDS: hydroCHLOROthiazide 12.5 MG CAP PO SCH (05:28)
[2018-06-10] MEDS: LEVOTHYROXINE SOD 0.1 MG TAB PO SCH (05:28)
[2018-06-10] MEDS: AMLODIPINE 10 MG TAB PO SCH (05:29)
[2018-06-10] MEDS: RIVAROXABAN 10 MG TABLET PO SCH (09:18)
[2018-06-10] MEDS: METOPROLOL TAR 50 MG TAB PO SCH ×2 (09:18→20:59)
[2018-06-10] MEDS: ASPIRIN EC 81 MG TAB PO SCH (09:19)
[2018-06-10] MEDS: LISINOPRIL 20 MG TAB PO SCH ×2 (09:19→20:58)
--- NOTE | 2018-06-10 13:45 | P.PN ---
Date of Service: 06/10/18 (POD#6) S: THIS PATIENT'S DOING WELL TODAY. HE IS DESCRIBING PAIN INTENSITIES ONLY 8 , 7, 8, 0/10. TODAY HE WAS ABLE TO WALK 250' TOTAL WITH A ROLLING WALKER,A COMPLETE TOUR AROUND THE FLOOR. O: VSS; AFEBRILE; HGB STABLE. BANDAGE IS CLEAN AND DRY AND INTACT. NEW BANDAGE APPLIED AFTER ALCOHOL SWABS USED. INCISION HEALING NICELY. NEUROVASCULAR EXAM IS INTACT. A: THIS PATIENTS PROGRESS IS STEADY. EXPECT TRANSFER TO SNF TODAY. P: CONTINUE MOBILIZATION. AWAITING ACCEPTANCE AND INSURANCE AUTHORIZATION FOR [facility]. CONTINUE GAIT AND TRANSFERS WITH RW LLE WBAT. PROM & AAROM LEFT TKA. CHANGE BANDAGE PERFORMED BY ME WITH NEW AQUACEL BANDAGES TO COVER INCISIONS AFTER ALCOHOL SWABS. BANDAGE TO REMAIN IN PLACE UNTIL APPT. TO MY OFFICE FOR REMOVAL OF WERNER. [place] 7.5/325 APAP 1 TAB P.O. Q 4 HRS. PRN PAIN,#40 XARELTO 10 MG 1 P.O. DAILY, #[address] ZENDEJAS REGARDING ASA 81 mg DAILY, HOLD OR CONTINUE.
--- NOTE | 2018-06-11 00:48 | PN ---
Date of Progress Note: 06/10/2018 Subjective: The patient was seen this morning for followup. He was lying in bed, not in any distres s. No new complaints or problems reported by him. Objective: Vital Signs: Reviewed. HEENT: Unremarkable. Lungs: Clear to auscultation. Heart: Sounds normal. Abdomen: Soft. Bowel sounds normal. No guarding, rigidity, tenderness, or distention. Extremities: No leg edema. Assessment: 1.Anemia due to acute blood loss. 2.Hypertension. 3.Coronary artery disease. 4.Hyperlipidemia. 5.Hypothyroidism. Plan: The patient is medically stable for discharge to go to group home for skilled therapy. Ruby rausch was written for the patient to receive 10 days of Xarelto 10 daily upon discharge to group home a nd while in the hospital, we will continue Xarelto and other current antihypertensive medication. I will see him tomorrow for followup if he is in the hospital. DEANDRE/MODL Voice ID: [id number] Report ID: [id number]
[2018-06-11] MEDS: HYDROCODONE/APAP 7.5/325 MG TAB PO PRN ×3 (02:44→15:02)
[2018-06-11] MEDS: AMLODIPINE 10 MG TAB PO SCH (05:57)
[2018-06-11] MEDS: hydroCHLOROthiazide 12.5 MG CAP PO SCH (05:57)
[2018-06-11] MEDS: LEVOTHYROXINE SOD 0.1 MG TAB PO SCH (05:58)
[2018-06-11] MEDS: RIVAROXABAN 10 MG TABLET PO SCH (10:24)
[2018-06-11] MEDS: METOPROLOL TAR 50 MG TAB PO SCH (10:24)
[2018-06-11] MEDS: LISINOPRIL 20 MG TAB PO SCH (10:24)
[2018-06-11] MEDS: ASPIRIN EC 81 MG TAB PO SCH (10:25)
[2018-06-11 11:50] VITALS: O2SAT 95
[2018-06-11 14:21] VITALS: BP 132/59; TEMP 97.4
--- NOTE | 2018-06-12 00:02 | PN ---
Date of Progress Note: 06/11/2018 Subjective: The patient was seen this morning for followup. He was lying in bed, not in any distres s. No new complaints or problems reported by him. Objective: Vital Signs: Reviewed. HEENT: Examination unremarkable. Lungs: Clear to auscultation. Heart: Sounds normal. Abdomen: Soft. Bowel sounds normal. No guarding, rigidity, tenderness, or distention. Extremities: No leg edema. Impression: 1.Hypertension. 2.Hyperlipidemia. 3.Coronary artery disease. 4.Hypothyroidism. 5.Anemia due to acute blood loss. 6.Constipation. Plan: The patient is doing well, is participating well with physical therapy. We will continue curr ent medications including Xarelto for DVT prophylaxis. He is medically stable for discharge. Xarelt o should be given for 10 more days upon discharge. DEANDRE/BLAISE Voice ID: [id number] Report ID: [id number]
--- NOTE | 2018-06-14 04:41 | DS ---
Date of Discharge: 06/11/2018 Danish Lock is an 83-year-old male, who elected to present for left knee total knee arthroplasty on 06/04/2018. He had a stabilized rotating-platform DePuy Sigma knee successfully inserted with computer navigation for the tibial cut. The femoral array actually broke, and the conversion to instrumentation alignment was made for the femoral prosthetic component. The procedure went well with 100 mL of blood loss estimated. Components inserted included a Sigma size 4 posterior stabilized femoral component, a revision tibial tray rotating-platform size 4, a rotating-platform size 4 insert x 10 mm thickness, and an oval dome patella 38 mm. All fixed components were cemented in place with Simplex HV cement with gentamicin. Postoperatively, the patient was placed in a CPM at 60 degrees ROM which proved to be poorly tolerated by this patient. Dr. Josue Blanco was consulted as the patient's PCP and internal medicine physician for medical management for coronary artery disease, carotid artery stenosis, hypertension, hyperlipidemia, and hypothyroidism. Current home medications were continued with parameters of when to hold blood pressure medication. DVT prophylaxis was initiated using Lovenox injections. On 2017, Dr. Blanco discontinued Lovenox and started the patient on Xarelto for DVT prophylaxis. He was also started on stool softener, Senokot-S 2 tablets q.h.s. and milk of magnesia 1 time dose was ordered for constipation. On the first postoperative day, the patient had pain radiating from its left buttock down to the bottom of his left foot with intensities described as 8, 0, 5, 8, 6, 8 intensity out of 10. He was forced to stop his CPM because of that discomfort which was aggravated in the straight leg position with the head of the bed flexed to the sitting position. The patient was instructed to use his CPM machine with the bed in the fully reclining position. However, the patient indicates that he has discomfort and difficulty breathing if the head of the bed is flat. Review of x-ray showed excellent position for the left total knee arthroplasty. His hemoglobin was 12.7, down 1 point from 13.7 postoperatively. His bandage was clean and dry. Morphine dose was adjusted to be reduced from 4 mg IV q.4 hours to 2 mg IV q.4 hours to avoid the patient's complaints of dizziness that he experienced with his first therapy session. On postoperative day 2, the patient continued to complain of radiating pain from the anterior thigh at this point down to behind his left ankle. Intensities had decreased to 5/10 and 8/10. He did well with physical therapy, being able to stand without dizziness, and walks 35 feet in his afternoon session using the rolling walker. Hemoglobin was stable. The patient was encouraged to sleep on his right side with a pillow between his legs as a position to ease his symptoms of sciatica. On postoperative day 3, the patient was feeling better. I slowed the CPM speed from 4 to 1 and the patient was more comfortable with the CPM to 70 degrees. He was able to walk 22 feet, rest, and then walked 75 feet with rest between that and another 75 feet walk. Hemoglobin remained stable at 12.7. Pain remained episodic related mostly to a straight position of the left lower extremity with the upper body flexed forward. He did have some success in resting on his right side with a pillow between his legs. The patient continued making slow progress and [facility] nursing facility was requested. Paper was sent on Sunday. Over the weekend, on postoperative day 4 and 5, the patient continued to decrease his pain intensity. He was tolerating CPM at 75 degrees flexion and was increasing his walking distance with a rolling walker on a daily basis. He had some difficulty achieving heel strike, tending to walk with a bent knee, but after the first 40 feet of ambulation, he was improving heel strike efforts. His hemoglobin dropped slightly to 12.1. A mild blush of erythema adjacent to the Aquacel bandage on the medial side of the knee was observed and circled and diminished on the following 2 days to disappear. The patient was discharged on 06/11 to [facility]. He was to continue gait and transfers with a rolling walker for the left lower extremity, weightbearing as tolerated with Therapy helping him with passive range of motion and active assist range of motion for the left total knee arthroplasty. On the day prior to discharge, he had his bandage changed with a new Aquacel to cover his incisions. Alcohol swabs were used prior to application of the new bandage. Bandages to remain in place until Sunday week when he returns to my office for removal of annmarie. He was prescribed [place] 7.5/325 APAP 1 tablet p.o. q.4 hours p.r.n. pain, number dispensed 40 and Xarelto 10 mg tablets with 1 p.o. prescribed daily, number dispensed 10; aspirin is being held until Xarelto tablets are finished. Discharged on 06/11. The patient had been making 250' excursions around the nursing station with his rolling walker. GREGG/BLAISE Voice ID: [id number] Report ID: [id number] MTDD
== END 2018-06-11 15:45 | DRG 470 ==
LOC: EDSTATUS 08:00 → DSO 06-04 05:48 → 2ND 06-04 12:54
PROVIDERS: ADMIT Orthopaedic Surgery; ATTEND Orthopaedic Surgery
PROC: 0SRD0J9 Replacement of Left Knee Joint with Synthetic Substitute, Cemented, Open Approach (ICD-10-PCS; principal; 2018-06-04 07:30)
DX: M17.0 Bilateral primary osteoarthritis of knee (principal); D62 Acute posthemorrhagic anemia; I25.10 Atherosclerotic heart disease of native coronary artery without angina pectoris; Z95.5 Presence of coronary angioplasty implant and graft; I10 Essential (primary) hypertension; E78.5 Hyperlipidemia, unspecified; E03.9 Hypothyroidism, unspecified; I65.29 Occlusion and stenosis of unspecified carotid artery; K59.00 Constipation, unspecified
CPT/HCPCS: 36415; 71046; 80048; 80053; 80076; 81003; 83036; 83735; 85014; 85018; 85025; 85610; 85730; 86850; 86900; 86901; 88304; 88311; 93005; 97163; J0690; J1650; J2001; J2175; J2250; J2270; J2405; J2704; J2795; J3010

== ENCOUNTER 2019-04-05 14:55 | Emergency (ER) | payer OTHER ==
--- OUTSIDE RECORDS SUMMARY | 2019-04-05 14:57 | XMS REPORT ---
[...] ND 0 Active not defined Metoprolol Tartrate [facility] 12007-64 Active not 94- defined Hydrochlorothiazide [facility] 03924-96 Active not 20- defined Aspir-81 [facility] 75923-23 Active not defined Lisinopril [facility] 09058-41 Active not 07-30 defined Levothyroxine Sodium [facility] 15144-84 Active not 07-30 defined Results No Known Results Summary Purpose eClinicalWorks Submission
--- OUTSIDE RECORDS SUMMARY | 2019-04-05 14:57 | XMS REPORT | Clinical Summary ---
:1935 Author Organization [facility] Address [address] [place] [address] Care Team Providers Name Role Phone Josue Blanco MD Primary Care Provider Allergies Active Allergy Reactions Severity Noted Date Comments Codeine 09/05/2016 Medications Medication Sig Dispensed Refills Start End Date Status Date amLODIPine (NORVASC) 10 Take 10 mg 3 Active mg tablet by mouth 7 once daily. levothyroxine Take 100 3 Active (SYNTHROID, LEVOXYL) mcg by 6 100 mcg tablet mouth once daily. lisinopril TAKE 1 3 Active (PRINIVIL,ZESTRIL) 20 TABLET 6 mg tablet (20MG) BY ORAL ROUTE 2 TIMES EVERY DAY hydroCHLOROthiazide Take 12.5 0 Active (HYDRODIURIL) 12.5 MG mg by tablet mouth daily. aspirin (ASPIR-81) 81 Aspir-81 0 Active MG enteric coated tablet metoprolol tartrate TAKE 1 180 tablet 0 Active (LOPRESSOR) 50 mg TABLET BY 9 tablet MOUTH TWICE A DAY metoprolol tartrate Take 1 180 tablet 3 10/17/19 Discontinued (LOPRESSOR) 50 mg tablet (50 8 19 (Reorder) tablet mg total) by mouth 2 (two) times a day. metoprolol tartrate Take 1 180 tablet 0 01/10/20 Discontinued (LOPRESSOR) 50 mg tablet (50 9 19 (Reorder) tablet mg total) by mouth 2 (two) times a day. 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 History of pacemaker 09/05/2016 Essential hypertension 09/05/2016 Pure hypercholesterolemia 09/05/2016 Encounters Date Type Specialty Care Team Description 01/09/2019 Refill Cardiology Tony Rebolledo MD Med Refill 11/26/2018 Telephone Cardiology Misha Appiah MA Results (ultrasound of carotid) 11/05/2018 Office Visit Cardiology Tony Rebolledo MD Essential hypertension (Primary Dx); Coronary artery disease involving [place] coronary artery of [place] heart without angina pectoris; History of pacemaker; Bilateral carotid bruits 10/25/2018 Orders Only Cardiology Lai Parsons MD 10/16/2018 Orders Only Cardiology Misha Appiah MA 05/07/2018 Office Visit Cardiology Tony Rebolledo MD Coronary artery disease involving [place] coronary artery of [place] heart without angina pectoris (Primary Dx); History of pacemaker after 04/04/2018 Family History Medical History Relation Name Comments Heart disease Sister Hypertension Sister Relation Name Status Comments Father Mother Sister Social History Tobacco Use Types Packs/Day Years Used Date Former Smoker Smokeless Tobacco: Never Used Alcohol Use Drinks/Week oz/Week Comments No Sex Assigned at Date Recorded Not on file Job Start Date Occupation Industry Not on file Not on file Not on file Travel History Travel Start Travel End No recent travel history available. Last Filed Vital Signs Vital Sign Reading Time Taken Comments Blood Pressure 144/67 11/05/2018 1:27 PM CDT Pulse 68 11/05/2018 1:27 PM CDT Temperature - - Respiratory Rate - - Oxygen Saturation - - Inhaled Oxygen Concentration - - Weight 94.8 kg (209 lb) 11/05/2018 1:27 PM CDT Height 177.8 cm (5' 10") 11/05/2018 1:27 PM CDT Body Mass Index 29.99 11/05/2018 1:27 PM CDT Plan of Treatment Date Type Specialty Care Team Description 05/06/2019 Office Visit Cardiology Tony Rebolledo MD [address] [facility] [address] [place] [address] Health Maintenance Due Date Last Done Comments SHINGLES VACCINES (#1) 1984 65+ PNEUMOCOCCAL VACCINE (1 of 2 - PCV13) 1999 INFLUENZA VACCINE 02/27/2019 Procedures Procedure Name Priority Date/Time Associated Comments Diagnosis US CAROTID DUPLEX Routine 11/12/2018 4:18 Coronary artery Results for this BILATERAL PM CDT disease involving procedure are in [place] coronary the results artery of [place] section. heart without angina pectoris Bilateral carotid bruits CV PACEMAKER DEFIB ILR Routine 10/21/2018 INTERROGATION CV PACEMAKER DEFIB ILR Routine 07/22/2018 INTERROGATION CV PACEMAKER DEFIB ILR Routine 07/18/2018 INTERROGATION CV PACEMAKER DEFIB ILR Routine 05/07/2018 INTERROGATION after 04/04/2018 Results Us carotid duplex (11/12/2018 4:18 PM CDT) Specimen Narrative Performed At [facility] Carotid Artery Ultrasound Report Pat.[id number] St.Date: 11/12/2018 Refer.MD:TONY REBOLLEDO MD Exam Time: 3:45:00 PMStudy Type:Carotid DOBAge:1935,83Y Sex: MALE Sonogrphr: Nieves Zimmerman RVT Pat. Stat.:[facility] CPT - 4: 81051 Echo Event ID:[id number] Order ID:[id number] Reason for Study:Carotid artery disease, S/P right carotid stent, Hx of CAD. SUMMARY: CAROTID ARTERY SCAN RIGHT:There is scattered plaque in the common carotid artery. There is hard and calcifiedplaque noted in the bulb extending into the proximal external carotid artery.Colorflow is mildly disturbed. There is a patent stent noted in the proximal internal carotid artery with normal color flow and Doppler signals. There is antegrade flow in the vertebral artery. LEFT:There is scattered plaque in the common carotid artery. There is hard and calcifiedplaque noted in the bulb extending into the proximal internal and external carotid artery.Colorflow is disturbed with elevated velocities.There is antegrade flow in the vertebral artery. PRELIMINARY FINDINGS 1.Patent stent noted in the right proximal internal carotid artery with normal color flow and Doppler signals. 2. <50% stenosis in the right external carotid artery. 3. 50-69% stenosis in the left bulb/internal carotid artery. 4. >50% stenosis in the left external carotid artery. 5. Mildly elevated velocity noted in the left subclavian artery. PHYSICIAN INTERPRETATION Bilateral carotid duplex exam demonstrates patent stent in the right internal carotid artery with no evidence of stenosis. Atherosclerotic plaque in the right bulb and external carotid artery with <50% stenosis. Atherosclerotic plaque in the leftbulb and internal carotid artery with 50-69% stenosis. >50% stenosis in the left external carotid artery. Approximately 50% stenosis in the left subclavian artery. Carotid Findings:RightLeft Verteb.Flw AntegradeAntegrade Subclavian Biphasic Biphasic MEASUREMENTS: DOPPLER Right CCA Dist CCA Dist PSV70.5 cm/sCCA Dist EDV11.4 cm/s Right CCA Mid CCA Mid PSV 65.8 cm/sCCA Mid EDV 7.63 cm/s Right CCA Prox CCA Prox PSV41.9 cm/sCCA Prox EDV5.72 cm/s Right Bulb Bulb PSV75.3 cm/sBulb EDV12.4 cm/s Right ECA ECA BLQ648 cm/sECA EDV 8.04 cm/s Right ICA Dist ICA Dist PSV65.5 cm/[place] Dist EDV12.5 cm/s Right ICA Mid ICA Mid PSV 69.7 cm/[place] Mid EDV 11.2 cm/s Right ICA Prox ICA Prox PSV78.8 cm/[place] Prox EDV12.8 cm/s Right Vertebral Vertebral PSV 48.8 cm/sVertebral EDV 11.2 cm/s Right SCA Prox SCA Prox PSV89.2 cm/sSCA Prox EDV 0 cm/s Left CCA Dist CCA Dist PSV61.9 cm/sCCA Dist EDV7.74 cm/s Left CCA Mid CCA Mid PSV 70.1 cm/sCCA Mid EDV 10 cm/s Left CCA Prox CCA Prox PSV57.2 cm/sCCA Prox EDV8.36 cm/s Left Bulb Bulb PSV74.3 cm/sBulb EDV12.4 cm/s Left ECA Prox ECA Prox PSV 273 cm/sECA Prox EDV19.2 cm/s Left ICA Dist ICA Dist PSV 173 cm/[place] Dist EDV23.9 cm/s Left ICA Mid ICA Mid BYN527 cm/[place] Mid EDV 21.3 cm/s Left ICA Prox ICA Prox PSV 170 cm/[place] Prox EDV42.5 cm/s Left Vertebral Vertebral PSV 45.3 cm/sVertebral EDV 7.35 cm/s Left SCA Prox SCA Prox PSV 214 cm/sSCA Prox EDV 0 cm/s Right ECA Prox ECA Prox PSV 145 cm/sECA Prox EDV 8 cm/s Right ICA/CCA Ratio ICA/CCA PSV1.2 Left ICA/CCA Ratio ICA/CCA PSV 2.43 Signed 11/15/2018 04:43 PM Tony Rebolledo MD Procedure Note Interface, Radiology Results In - 11/15/2018 4:44 PM CDT [facility] Carotid Artery Ultrasound Report Pat.Name: DANISH LOCK Pat.ID: [id number] .Date: 11/12/2018 Refer.MD: TONY REBOLLEDO MD Exam Time: 3:45:00 PM Study Type:Carotid Age: 7 1935,83Y Sex: MALE Sonogrphr: Nieves Zimmerman RVT Pat. Stat.:Outpatient Room: [facility] Vol: SD, CPT - 4: 05343 Echo Event ID:[id number] Order ID: [id number] Reason for Study:Carotid artery disease, S/P right carotid stent, Hx of CAD. SUMMARY: CAROTID ARTERY SCAN RIGHT: There is scattered plaque in the common carotid artery. There is hard and calcified plaque noted in the bulb extending into the proximal external carotid artery. Colorflow is mildly disturbed. There is a patent stent noted in the proximal internal carotid artery with normal color flow and Doppler signals. There is antegrade flow in the vertebral artery. LEFT: There is scattered plaque in the common carotid artery. There is hard and calcified plaque noted in the bulb extending into the proximal internal and external carotid artery. Colorflow is disturbed with elevated velocities. There is antegrade flow in the vertebral artery. PRELIMINARY FINDINGS 1. Patent stent noted in the right proximal internal carotid artery with normal color flow and Doppler signals. 2. <50% stenosis in the right external carotid artery. 3. 50-69% stenosis in the left bulb/internal carotid artery. 4. >50% stenosis in the left external carotid artery. 5. Mildly elevated velocity noted in the left subclavian artery. PHYSICIAN INTERPRETATION Bilateral carotid duplex exam demonstrates patent stent in the right internal carotid artery with no evidence of stenosis. Atherosclerotic plaque in the right bulb and external carotid artery with <50% stenosis. Atherosclerotic plaque in the left bulb and internal carotid artery with 50-69% stenosis. >50% stenosis in the left external carotid artery. Approximately 50% stenosis in the left subclavian artery. Carotid Findings: Right Left Verteb.Flw Antegrade Antegrade Subclavian Biphasic Biphasic MEASUREMENTS: DOPPLER Right CCA Dist CCA Dist PSV 70.5 cm/s CCA Dist EDV 11.4 cm/s Right CCA Mid CCA Mid PSV 65.8 cm/s CCA Mid EDV 7.63 cm/s Right CCA Prox CCA Prox PSV 41.9 cm/s CCA Prox EDV 5.72 cm/s Right Bulb Bulb PSV 75.3 cm/s Bulb EDV 12.4 cm/s Right ECA ECA PSV 145 cm/s ECA EDV 8.04 cm/s Right ICA Dist ICA Dist PSV 65.5 cm/s ICA Dist EDV 12.5 cm/s Right ICA Mid ICA Mid PSV 69.7 cm/s ICA Mid EDV 11.2 cm/s Right ICA Prox ICA Prox PSV 78.8 cm/s ICA Prox EDV 12.8 cm/s Right Vertebral Vertebral PSV 48.8 cm/s Vertebral EDV 11.2 cm/s Right SCA Prox SCA Prox PSV 89.2 cm/s SCA Prox EDV 0 cm/s Left CCA Dist CCA Dist PSV 61.9 cm/s CCA Dist EDV 7.74 cm/s Left CCA Mid CCA Mid PSV 70.1 cm/s CCA Mid EDV 10 cm/s Left CCA Prox CCA Prox PSV 57.2 cm/s CCA Prox EDV 8.36 cm/s Left Bulb Bulb PSV 74.3 cm/s Bulb EDV 12.4 cm/s Left ECA Prox ECA Prox PSV 273 cm/s ECA Prox EDV 19.2 cm/s Left ICA Dist ICA Dist PSV 173 cm/s ICA Dist EDV 23.9 cm/s Left ICA Mid ICA Mid PSV 154 cm/s ICA Mid EDV 21.3 cm/s Left ICA Prox ICA Prox PSV 170 cm/s ICA Prox EDV 42.5 cm/s Left Vertebral Vertebral PSV 45.3 cm/s Vertebral EDV 7.35 cm/s Left SCA Prox SCA Prox PSV 214 cm/s SCA Prox EDV 0 cm/s Right ECA Prox ECA Prox PSV 145 cm/s ECA Prox EDV 8 cm/s Right ICA/CCA Ratio ICA/CCA PSV 1.2 Left ICA/CCA Ratio ICA/CCA PSV 2.43 Signed 11/15/2018 04:43 PM Tony Rebolledo MD Performing Organization Address City/State/[facility] Phone Number [facility] [address] [place] [address] CV pacemaker defib or ilr interrogation (10/21/2018) Narrative Performed At CV pacemaker defib or ilr interrogation (07/22/2018) Narrative Performed At CV pacemaker defib or ilr interrogation (07/18/2018) Narrative Performed At CV pacemaker defib or ilr interrogation (05/07/2018) Narrative Performed At after 04/04/2018 Advance Directives For more information, please contact: [phone] Type Date 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
--- OUTSIDE RECORDS SUMMARY | 2019-04-05 14:58 | XMS REPORT ---
:1935 Author Organization [employer] Care Team Providers Name Role Phone Augustine Perez Provider Role Unavailable Allergies, Adverse Reactions, Alerts Substance Reaction Event Type Latex Info Not Available Drug Allergy codeine Info Not Available Drug Allergy Problems Problem Type Condition Code Onset Dates Condition Status Assessment Presence of left artificial knee Z96.652 Active joint Assessment Pain in left knee M25.562 Active Assessment Primary osteoarthritis of right M17.11 Active knee Assessment Pain in right knee M25.561 Active Assessment Aftercare following joint Z47.1 Active replacement surgery Problem Presence of left artificial knee Z96.652 Active joint Problem Primary osteoarthritis of right M17.11 Active knee Problem Aftercare following joint Z47.1 Active replacement surgery Problem Other chronic pain G89.29 Active Problem Pain in left knee M25.562 Active Problem 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 Problem Pain in right knee M25.561 Active Medications Medication Code Code Instructions Start End Status Dosage System Date Date Amlodipine Besylate ND 0 Active not defined Levothyroxine Sodium [facility] [address]-14 Active not defined Tramadol HCl [facility] 97041833539 50 MG Orally Jul 05, Active 1 tablet every 6 hrs 2018 as needed Lisinopril [facility] [address]-68 Active not defined Metoprolol Tartrate [facility] [address]-77 Active not defined [place] [facility] 66595687413 7.5-325 MG Active 1 tablet Orally every 6 as needed hrs Aspir-81 [facility] [address]-12 Active not defined Cyclobenzaprine HCl [facility] 24048497123 10 MG Orally Jul 05, Active 1 tablet muscle spasms 2018 as needed Hydrochlorothiazide [facility] [address]-63 Active not defined Results No Known Results Summary Purpose eClinicalWorks Submission
--- OUTSIDE RECORDS SUMMARY | 2019-04-05 14:58 | XMS REPORT ---
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 23803516468 50 MG Orally Sep 03, Aug 15, Active 1 tablet every 6 hrs 2018 2018 as needed Results No Known Results Summary Purpose eClinicalWorks Submission
--- OUTSIDE RECORDS SUMMARY | 2019-04-05 14:58 | XMS REPORT ---
[...] Pain in left knee M25.562 Active Assessment Aftercare following joint Z47.1 Active [...] Start End Status Dosage System Date Date Lisinopril [facility][NOTE 3] [address]-90 Active not defined Metoprolol Tartrate [facility][NOTE 3] [address]-47 Active not defined [place] [facility][NOTE 3] 50222649771 7.5-325 MG Active 1 tablet Orally every 6 as needed hrs Hydrochlorothiazide [facility][NOTE 3] [address]-98 Active not defined Tramadol HCl [facility][NOTE 3] 19296856005 50 MG Orally Jul 05, Active 1 tablet every 6 hrs 2018 as needed Levothyroxine Sodium [facility][NOTE 3] [address]-81 Active not defined Aspir-81 [facility][NOTE 3] [address]-74 Active not defined Cyclobenzaprine HCl [facility][NOTE 3] 36919077448 10 MG Orally Jul 05, Active 1 tablet muscle spasms 2018 as needed Amlodipine Besylate ND 0 Active not defined Results No Known Results Summary Purpose eClinicalWorks Submission
--- OUTSIDE RECORDS SUMMARY | 2019-04-05 14:58 | XMS REPORT ---
:1935 Author Organization [employer] Care Team Providers Name Role Phone Perez Augustine Provider Role Unavailable Allergies, Adverse Reactions, Alerts Substance Reaction Event Type Latex Info Not Available Drug Allergy codeine Info Not Available Drug Allergy Problems Problem Type Condition Code Onset Dates Condition Status Assessment Pain in right knee M25.561 Active Assessment Primary osteoarthritis of right M17.11 Active knee Problem Presence of left artificial knee Z96.652 [...] Start End Status Dosage System Date Date Tramadol HCl [facility] 44895886071 50 MG Orally Jul 05, Active 1 tablet every 6 hrs 2018 as needed [place] [facility] 15268569894 7.5-325 MG Active 1 tablet Orally every 6 as needed hrs Tylenol # 3 ND 0 300/30mg PO Jul 31, Aug Active one tab BID PRN 2018 Tramadol HCl ND 77922134369 50 MG Orally Jul 31Jul Active 1 tablet every 6 hrs 2018 12, as needed 2018 Metoprolol Tartrate [facility] [address]-67 Active not defined Aspir-81 [facility] [address]-86 Active not defined Cyclobenzaprine HCl [facility] 72657534621 10 MG Orally Jul 05, Active 1 tablet muscle spasms 2018 as needed Hydrochlorothiazide [facility] [address]-72 Active not defined Amlodipine Besylate ND 0 Active not defined Lisinopril [facility] [address]-84 Active not defined Levothyroxine Sodium [facility] [address]-69 Active not defined Results No Known Results Summary Purpose eClinicalWorks Submission
--- OUTSIDE RECORDS SUMMARY | 2019-04-05 14:58 | XMS REPORT ---
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 Assessment Presence of left artificial knee Z96.652 Active joint Assessment Aftercare following joint Z47.1 Active replacement [...] Start End Status Dosage System Date Date Levothyroxine Sodium [facility][NOTE 3] [address]-04 Active not defined Metoprolol Tartrate [facility][NOTE 3] [address]-17 Active not defined Tylenol # 3 NDC 0 300/30mg PO Jul 31, Aug Active one tab BID PRN 2018 Cyclobenzaprine HCl [facility][NOTE 3] 89779942801 10 MG Orally Jul 05, Active 1 tablet muscle spasms 2017 as needed Lisinopril [facility][NOTE 3] [address]-81 Active not defined Hydrochlorothiazide [facility][NOTE 3] [address]-88 Active not defined Aspir-81 [facility][NOTE 3] [address]-03 Active not defined [place] [facility][NOTE 3] 75911238015 7.5-325 MG Active 1 tablet Orally every 6 as needed hrs Tramadol HCl ND 27377057974 50 MG Orally Jul 05, Active 1 tablet every 6 hrs 2018 as needed Amlodipine Besylate NDC 0 Active not defined Results No Known Results Summary Purpose eClinicalWorks Submission
--- OUTSIDE RECORDS SUMMARY | 2019-04-05 14:58 | XMS REPORT ---
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 Assessment Primary osteoarthritis of right M17.11 Active knee Assessment Presence of left artificial knee Z96.652 Active joint Assessment Aftercare following joint Z47.1 Active replacement surgery Assessment Pain in left knee M25.562 Active Problem Presence of left artificial knee Z96.652 [...] End Status Dosage System Date Date Lisinopril [facility] [address]-08 Active not defined [place] [facility] 28493097832 7.5-325 MG Active 1 tablet Orally every 6 as needed hrs Aspir-81 [facility] [address]-91 Active not defined Hydrochlorothiazide [facility] [address]-78 Active not defined Amlodipine Besylate [facility] 0 Active not defined Cyclobenzaprine HCl [facility] 03532349117 10 MG Orally Jul 05, Active 1 tablet muscle spasms 2018 as needed Tramadol HCl [facility] 00949780115 50 MG Orally Jul 05, Active 1 tablet every 6 hrs 2018 as needed Levothyroxine Sodium [facility] [address]-31 Active not defined Metoprolol Tartrate [facility] [address]-79 Active not defined Results No Known Results Summary Purpose eClinicalWorks Submission
--- OUTSIDE RECORDS SUMMARY | 2019-04-05 14:58 | XMS REPORT ---
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 Assessment Trigger finger, left middle finger M65.332 Active Assessment Left hand pain M79.642 Active Assessment Pain in left knee M25.562 Active Assessment Presence of left artificial knee Z96.652 Active joint Problem Left hand pain M79.642 Active Problem Primary osteoarthritis of right M17.11 Active knee Problem Trigger finger, left middle finger M65.332 Active Problem Pain in right knee M25.561 Active Problem Other chronic pain G89.29 Active Problem Aftercare following joint Z47.1 Active replacement surgery Problem Presence of left artificial knee Z96.652 Active joint Medications Medication Code Code Instructions Start End Status Dosage System Date Date Amlodipine Besylate NDC 0 Active not defined Aspir-81 NDC 0 Active not defined Lisinopril [facility] [address]-21 Active not defined Hydrochlorothiazide [facility] [address]-59 Active not defined Tramadol HCl [facility] 93993580977 50 MG Active TAKE 1 TABLET BY MOUTH EVERY 6 HOURS Levothyroxine Sodium [facility] [address]-78 Active not defined [place] [facility] 95679090491 7.5-325 MG Active 1 tablet Orally every 6 as needed hrs Metoprolol Tartrate NDC 0 Active not defined Cyclobenzaprine HCl [facility] 09109330468 10 MG Orally Jul 05, Active 1 tablet muscle spasms 2018 as needed Results No Known Results Summary Purpose eClinicalWorks Submission
--- OUTSIDE RECORDS SUMMARY | 2019-04-05 14:58 | XMS REPORT ---
:1935 Author Organization [employer]ClinicalWorks Care Team Providers Name Role Phone Augustine Perez Provider Role Unavailable Allergies No Known Allergies [...] Pain in right knee M25.561 Active Medications No Known Medications Results No Known Results Summary Purpose eClinicalWorks Submission
[2019-04-05] MEDS ORDERED: IBUPROFEN 400 MG TAB ONE (16:02)
[2019-04-05 16:23] LABS: Absolute Lymphocytes (CBC) 1.7 K/uL (0.7-4.9); Basophils % 1.1 % (0-1.3); Hematocrit 44.3 % (39.6-49.0); Lymphocytes % 19.5 % (15.3-44.8); MPV 8.5 fL (7.6-11.3); RBC Red Blood Cell Count 4.81 M/uL (4.33-5.43)
[2019-04-05 16:25] LABS: Protime INR 0.93
--- NOTE | 2019-04-05 16:26 | RAD REPORT ---
EXAM DESCRIPTION: RAD - Chest Single View - 04/05/2019 4:00 pm CLINICAL HISTORY: Shortness of breath, hypertension COMPARISON: April 2018 TECHNIQUE: AP portable chest image was obtained 1557 hours . FINDINGS: No peripheral mass or consolidation. Interstitial pattern is not clearly different from co mparison. Pacemaker is in place. Heart and vasculature are normal. No measurable pleural effusion and no pneumothorax. No acute bony abnormality seen. No acute aortic findings suspected. IMPRESSION: No acute cardiopulmonary process.
--- NOTE | 2019-04-05 16:28 | RAD REPORT ---
EXAM DESCRIPTION: CT - Head Brain Wo Cont - 04/05/2019 4:10 pm CLINICAL HISTORY: Headache COMPARISON: None. TECHNIQUE: Axial 5 mm thick images of the head were obtained without IV contrast. All CT scans are performed using dose optimization technique as appropriate and may include automated exposure control or mA/KV adjustment according to patient size. FINDINGS: No intracranial hemorrhage, mass, edema or shift of mid-line structures. No acute infarcti on changes seen. Atrophy and mild chronic ischemic changes are present. Ventricles are in proportion to volume loss. Mastoid air cells and visualized portions of the paranasal sinuses are clear. No acute bony findings. IMPRESSION: Negative non-contrast CT head examination for acute finding.
[2019-04-05] MEDS ORDERED: cloNIDine HCl 0.1 MG TAB ONE (16:32)
[2019-04-05 16:37] LABS: ALT/SGPT 23 U/L (12-78); AST/SGOT 17 U/L (15-37); Albumin 3.8 g/dL (3.4-5.0); Alkaline Phosphatase 66 U/L (45-117); BUN Blood Urea Nitrogen 18 mg/dL (7-18); Bicarbonate 26 mmol/L (21-32); Bilirubin Direct < 0.1 mg/dL (0-0.2); Bilirubin Total 0.3 mg/dL (0.2-1.0); Glucose Level 86 mg/dL (74-106); Magnesium 2.3 mg/dL (1.8-2.4); NT PRO-BNP 759 pg/mL (<450); Potassium 3.8 mmol/L (3.5-5.1); Protein, Total 7.2 g/dL (6.4-8.2); Sodium Level 142 mmol/L (136-145); Troponin (Emerg Dept Use Only) < 0.02 ng/mL (0.0-0.045)
[2019-04-05] MEDS ORDERED: NA CHLORIDE 0.9% 500 ML ONE (17:27)
--- NOTE | 2019-04-05 18:18 | RAD REPORT ---
EXAM DESCRIPTION: CT - Head angio - 04/05/2019 5:56 pm CLINICAL HISTORY: HEADACHE TECHNIQUE: During dynamic enhancement using nonionic IV contrast, axial 1 millimeter thick images of the head were obtained. Sagittal and axial reconstruction images were generated using MIP technique and reviewed. All CT scans are performed using dose optimization technique as appropriate and may include automated exposure control or mA/KV adjustment according to patient size. COMPARISON: CT head same date FINDINGS: No aneurysm or vascular malformation identified.Major venous sinuses are patent. Dense calcifications are present in the cavernous and supraclinoid portions of each internal carotid artery. Approximately 50% stenosis is present in the supraclinoid portion right internal carotid daisy ry. No named branch occlusion or vasculitis. No other significant atherosclerotic changes identifiabl e. 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 No aneurysm or vascular malformation. No named branch occlusion.
--- NOTE | 2019-04-05 18:24 | RAD REPORT ---
EXAM DESCRIPTION: CT - Neck Angio - 04/05/2019 5:53 pm CLINICAL HISTORY: CONGESTION TECHNIQUE: During dynamic enhancement using nonionic IV contrast, axial 2 mm thick images of the nec k were obtained. Sagittal and axial reconstruction images were generated using MIP technique and revi ewed. All CT scans are performed using dose optimization technique as appropriate and may include automated exposure control or mA/KV adjustment according to patient size. FINDINGS: No aneurysm or vascular malformation identified. No carotid or vertebral dissection. No significant common carotid atherosclerotic change. There is a stent present at the origin of the r ight internal carotid artery. Lumen is patent. More distal portion of the right internal carotid daisy ry shows no significant finding to the skullbase. Left internal carotid artery shows very significant atherosclerotic change at the origin. There is 60% stenosis present at the left bulb ICA junction. N o focal abnormality of either vertebral artery. Basilar artery is normal. Significant cervical spine degenerative change present. No acute cervical spine finding. IMPRESSION: CT angio study shows 6% stenosis with significant atherosclerotic change at the left ca rotid bulb ICA junction. Right ICA stent is patent. No significant right-sided carotid stenosis. No significant vertebrobasilar finding.
--- NOTE | 2019-04-05 19:05 | ER ---
Nurse's Notes [facility] Name: Danish Lock Age: 84 yrs Sex: Male : 1935 Arrival Date: 04/05/2019 Time: 14:57 Bed 20 Private MD: Diagnosis: Headache Presentation: 04/05 15:15 Presenting complaint: Patient states: "I've been having a sinus headache for 3 weeks aa5 and today I felt so bad I felt like I was going to pass out". Pt states "I took two round of antibiotics but didn't help". Transition of care: patient was not received from another setting of care. Onset of symptoms was February 2019. Risk Assessment: Do you want to hurt yourself or someone else? Patient reports no desire to harm self or others. Initial Sepsis Screen: Does the patient meet any 2 criteria? No. Patient's initial sepsis screen is negative. Does the patient have a suspected source of infection? No. Patient's initial sepsis screen is negative. Care prior to arrival: None. 15:15 Acuity: ELÍAS 3 aa5 15:15 Method Of Arrival: Ambulatory aa5 Historical: - Allergies: 15:19 No Known Allergies; aa5 - Home Meds: 17:07 lisinopril 20 mg Oral tab 2 tabs once daily [Active]; hydrochlorothiazide 12.5 mg Oral em tab 1 tab once daily [Active]; amlodipine 10 mg tab 1 tab once daily [Active]; aspirin 81 mg Oral chew 1 tab once daily [Active]; levothyroxine 100 mcg tab 1 tab once daily [Active]; metoprolol tartrate 50 mg Oral tab 2 tabs once daily [Active]; - PMHx: 15:19 Hypertension; Hypothyroidism; aa5 - PSHx: 15:18 STENTS; Cardiac ablation; Pacemaker; aa5 - Immunization history:: Pneumococcal vaccine is up to date, Flu vaccine is up to date. - Social history:: Smoking status: Patient/guardian denies using tobacco. - Ebola Screening: : No symptoms or risks identified at this time. Screenin:32 Abuse screen: Denies threats or abuse. Nutritional screening: No deficits noted. em Tuberculosis screening: No symptoms or risk factors identified. Fall Risk None identified. Assessment: 15:50 General: Appears in no apparent distress. comfortable, Behavior is calm, cooperative, em Denies fever. Pain: Complains of pain in forehead, right occipital area and right base of the skull Pain currently is 8 out of 10 on a pain scale. Neuro: Level of Consciousness is awake, alert, obeys commands, Oriented to person, place, time, situation, Appropriate for age Safety Admin Assistant are equal bilaterally Moves all extremities. Gait is steady, Speech is normal, Facial symmetry appears normal, Pupils are PERRLA, Reports headache frontal area, occipital area. Cardiovascular: Reports shortness of breath, Denies chest pain, nausea, vomiting, Capillary refill < 3 seconds Rhythm is ventricular pacer. Respiratory: Airway is patent Respiratory effort is even, unlabored, Respiratory pattern is regular, symmetrical, Breath sounds are clear bilaterally. Denies cough. GI: Patient currently denies nausea, vomiting. EENT: Reports nasal congestion. Derm: Skin is intact, is thin, Skin is pink, warm \\T\\ dry. Musculoskeletal: Capillary refill < 3 seconds, Range of motion: intact in all extremities. 15:55 Reassessment: The previous assessment is accurate, call light remains within reach. ss 16:48 Reassessment: Patient appears in no apparent distress at this time. Patient and/or em family updated on plan of care and expected duration. Pain level reassessed. Patient is alert, oriented x 3, equal unlabored respirations, skin warm/dry/pink. 17:43 Reassessment: Patient appears in no apparent distress at this time. Patient and/or em family updated on plan of care and expected duration. Pain level reassessed. Patient is alert, oriented x 3, equal unlabored respirations, skin warm/dry/pink. wheeled to CT via wheelchair, reports feeling better, rates headache 4/10 Patient states feeling better. Vital Signs: 15:19 BP 171 / 77; Pulse 68; Resp 16 S; Temp 98.6(TE); Pulse Ox 97% on R/A; Weight 95.25 kg aa5 (R); Height 5 ft. 10 in. (177.80 cm) (R); Pain 8/; 15:23 BP 160 / 80 (man/); aa5 16:32 BP 158 / 92; Pulse 60; Resp 18; Pulse Ox 98% on R/A; Pain 8/10; em 17:01 BP 162 / 76; Pulse 58; Resp 18; Pulse Ox 98% on R/A; em 17:35 BP 179 / 81; Pulse 61; Resp 16; Pulse Ox 99% on R/A; Pain 4/10; em 18:24 BP 144 / 78; Pulse 61; Resp 16; Pulse Ox 97% on R/A; em 15:19 Body Mass Index 30.13 (95.25 kg, 177.80 cm) aa5 ED Course: 14:57 Patient arrived in ED. as 15:15 Arm band placed on. aa5 15:17 Triage completed. aa5 15:23 Halina Philip, АНДРЕЙ is PHCP. nh 15:23 Reggie Figueroa MD is Attending Physician. nh 15:25 Vishnu Burrell LVN is Primary Nurse. em 15:32 Patient has correct armband on for positive identification. Placed in gown. Bed in low em position. Call light in reach. Adult w/ patient. 16:00 X-ray completed. Portable x-ray completed in exam room. Patient tolerated procedure mh1 well. 16:00 Initial lab(s) drawn, by me, sent to lab. EKG done, by plant technician. reviewed by Reggie Figueroa MD Flu and/or RSV swab sent to lab. Inserted saline lock: 20 gauge in left wrist, using aseptic technique. Blood collected. 16:01 XRAY Chest (1 view) In Process Unspecified. EDMS 16:11 CT Head Brain wo Cont In Process Unspecified. EDMS 16:12 CT completed. Patient tolerated procedure well. Patient moved back from CT. mw3 17:53 CT Head Angio In Process Unspecified. EDMS 17:53 CT Neck Angio In Process Unspecified. EDMS 17:53 CT completed. Patient tolerated procedure well. Patient moved back from CT. mw3 19:12 No provider procedures requiring assistance completed. IV discontinued, intact, em bleeding controlled, No redness/swelling at site. Pressure dressing applied. Administered Medications: 16:04 Drug: Ibuprofen 800 mg Route: PO; em 17:38 Follow up: Response: No adverse reaction; Pain is decreased em 17:37 Drug: NS 0.9% 500 ml Route: IV; Rate: bolus; Site: left wrist; em 18:30 Follow up: IV Status: Completed infusion; IV Intake: 500ml em 17:37 Drug: cloNIDine 0.1 mg Route: PO; em 18:30 Follow up: Response: No adverse reaction; Blood pressure is elevated em Intake: 18:30 IV: 500ml; Total: 500ml. em Outcome: 19:04 Discharge ordered by . nh 19:12 Discharged to home ambulatory, with family. em 19:12 Condition: good 19:12 Discharge instructions given to patient, family, Instructed on discharge instructions, follow up and referral plans. medication usage, Demonstrated understanding of instructions, follow-up care, medications, Prescriptions given X 1. 19:13 Patient left the ED. em Signatures: Dispatcher [employer] EDMS Halina Philip, FORM DRAFTER FORM DRAFTER ut Noemi Munoz 1 Vishnu Burrell, PLATE SHOP HELPER PLATE SHOP HELPER em Porsche Guerra Audri RN RN aa5 Filomena Bates RN RN ss Madeleine Acuña mw3 Corrections: (The following items were deleted from the chart) 15:21 15:19 Pulse 68bpm; Resp 16bpm; Spontaneous; Pulse Ox 97% RA; Temp 98.6F Temporal; 95.25 aa5 kg Reported; Height 5 ft. 10 in. Reported; BMI: 30.1; Pain 8/10; aa5
--- NOTE | 2019-04-05 19:05 | EDPHYS ---
Physician Documentation [facility] Name: Danish Lock Age: 84 yrs Sex: Male : 1935 Arrival Date: 04/05/2019 Time: 14:57 Bed 20 Private MD: ED Physician Reggie Figueroa HPI: 04/05 18:59 This 84 yrs old Male presents to ER via Ambulatory with complaints of nh Headache. 18:59 The patient complains of pain to the forehead. The patient describes the headache as nh aching, constant. Onset: The symptoms/episode began/occurred 3 week(s) ago. Associated signs and symptoms: The patient has no apparent associated signs or symptoms. Severity of symptoms: At its worst the pain was moderate, in the emergency department the pain is unchanged. Headache History: Denies prior headaches. The symptoms are alleviated by over the counter pain medication, the symptoms are aggravated by nothing. The patient has not experienced similar symptoms in the past. The patient has been recently seen by a physician: Dr. Santos with similar presenting complaints. Patient reports dr santos gave him abx and he also saw the dentist for this headach ethat he has experienced. States he feels like he may have a touch of the flu. Historical: - Allergies: 15:19 No Known Allergies; aa5 - Home Meds: 17:07 lisinopril 20 mg Oral tab 2 tabs once daily [Active]; hydrochlorothiazide 12.5 mg Oral em tab 1 tab once daily [Active]; amlodipine 10 mg tab 1 tab once daily [Active]; aspirin 81 mg Oral chew 1 tab once daily [Active]; levothyroxine 100 mcg tab 1 tab once daily [Active]; metoprolol tartrate 50 mg Oral tab 2 tabs once daily [Active]; - PMHx: 15:19 Hypertension; Hypothyroidism; aa5 - PSHx: 15:18 STENTS; Cardiac ablation; Pacemaker; aa5 - Immunization history:: Pneumococcal vaccine is up to date, Flu vaccine is up to date. - Social history:: Smoking status: Patient/guardian denies using tobacco. - Ebola Screening: : No symptoms or risks identified at this time. ROS: 18:59 Constitutional: Negative for fever, chills, and weight loss, Eyes: Negative for injury, nh pain, redness, and discharge, Neck: Negative for injury, pain, and swelling, Cardiovascular: Negative for chest pain, palpitations, and edema, Respiratory: Negative for shortness of breath, cough, wheezing, and pleuritic chest pain, Abdomen/GI: Negative for abdominal pain, nausea, vomiting, diarrhea, and constipation, Back: Negative for injury and pain, : Negative for injury, bleeding, discharge, and swelling, MS/Extremity: Negative for injury and deformity, Skin: Negative for injury, rash, and discoloration, Psych: Negative for depression, anxiety, suicide ideation, homicidal ideation, and hallucinations, Allergy/Immunology: Negative for hives, rash, and allergies. 18:59 ENT: Positive for nasal discharge, rhinorrhea, sinus congestion, Negative for injury or acute deformity, drainage from ear(s), ear pain, dental pain, difficulty swallowing. 18:59 Neuro: Positive for headache. Exam: 18:59 Constitutional: This is a well developed, well nourished patient who is awake, alert, nh and in no acute distress. Head/Face: Normocephalic, atraumatic. Eyes: Pupils equal round and reactive to light, extra-ocular motions intact. Lids and lashes normal. Conjunctiva and sclera are non-icteric and not injected. Cornea within normal limits. Periorbital areas with no swelling, redness, or edema. ENT: Nares patent. No nasal discharge, no septal abnormalities noted. Tympanic membranes are normal and external auditory canals are clear. Oropharynx with no redness, swelling, or masses, exudates, or evidence of obstruction, uvula midline. Mucous membranes moist. Neck: Trachea midline, no thyromegaly or masses palpated, and no cervical lymphadenopathy. Supple, full range of motion without nuchal rigidity, or vertebral point tenderness. No Meningismus. Chest/axilla: Normal chest wall appearance and motion. Nontender with no deformity. No lesions are appreciated. Cardiovascular: Regular rate and rhythm with a normal S1 and S2. No gallops, murmurs, or rubs. Normal PMI, no JVD. No pulse deficits. Respiratory: Lungs have equal breath sounds bilaterally, clear to auscultation and percussion. No rales, rhonchi or wheezes noted. No increased work of breathing, no retractions or nasal flaring. Abdomen/GI: Soft, non-tender, with normal bowel sounds. No distension or tympany. No guarding or rebound. No evidence of tenderness throughout. Back: No spinal tenderness. No costovertebral tenderness. Full range of motion. Skin: Warm, dry with normal turgor. Normal color with no rashes, no lesions, and no evidence of cellulitis. MS/ Extremity: Pulses equal, no cyanosis. Neurovascular intact. Full, normal range of motion. Neuro: Awake and alert, GCS 15, oriented to person, place, time, and situation. Cranial nerves II-XII grossly intact. Motor strength 5/5 in all extremities. Sensory grossly intact. Cerebellar exam normal. Normal gait. Psych: Awake, alert, with orientation to person, place and time. Behavior, mood, and affect are within normal limits. Vital Signs: 15:19 BP 171 / 77; Pulse 68; Resp 16 S; Temp 98.6(TE); Pulse Ox 97% on R/A; Weight 95.25 kg aa5 (R); Height 5 ft. 10 in. (177.80 cm) (R); Pain 8/10; 15:23 BP 160 / 80 (man/); aa5 16:32 BP 158 / 92; Pulse 60; Resp 18; Pulse Ox 98% on R/A; Pain 8/10; em 17:01 BP 162 / 76; Pulse 58; Resp 18; Pulse Ox 98% on R/A; em 17:35 BP 179 / 81; Pulse 61; Resp 16; Pulse Ox 99% on R/A; Pain 4/10; em 18:24 BP 144 / 78; Pulse 61; Resp 16; Pulse Ox 97% on R/A; em 15:19 Body Mass Index 30.13 (95.25 kg, 177.80 cm) aa5 MDM: 15:23 Patient medically screened. nh 18:59 Data reviewed: vital signs, nurses notes, lab test result(s), EKG, radiologic studies, nh I have discussed the patient's presentation/case with the attending Emergency Department Physician; and as a result, I will discharge patient. Counseling: I had a detailed discussion with the patient and/or guardian regarding: the historical points, exam findings, and any diagnostic results supporting the discharge/admit diagnosis, lab results, radiology results, the need for outpatient follow up, to return to the emergency department if symptoms worsen or persist or if there are any questions or concerns that arise at home. 04/05 15:39 Order name: Basic Metabolic Panel; Complete Time: 16:38 mn 04/05 15:39 Order name: CBC with Diff; Complete Time: 16:37 mn 04/05 15:39 Order name: LFT's; Complete Time: 16:38 mn 04/05 15:39 Order name: Magnesium; Complete Time: 16:38 mn 04/05 15:39 Order name: NT PRO-BNP; Complete Time: 16:38 mn 04/05 15:39 Order name: PT-INR; Complete Time: 16:37 mn 04/05 15:39 Order name: Troponin (emerg Dept Use Only); Complete Time: 16:38 mn 04/05 15:39 Order name: XRAY Chest (1 view); Complete Time: 16:37 mn 04/05 15:39 Order name: Flu; Complete Time: 16:37 mn 04/05 15:39 Order name: CT Head Brain wo Cont; Complete Time: 16:37 mn 04/05 17:07 Order name: CT Head Angio; Complete Time: 18:37 mn 04/05 17:07 Order name: CT Neck Angio; Complete Time: 18:37 mn 04/05 15:39 Order name: EKG; Complete Time: 15:40 mn 04/05 15:39 Order name: Cardiac monitoring; Complete Time: 15:57 mn 04/05 15:39 Order name: EKG - Nurse/Tech; Complete Time: 15:57 mn 04/05 15:39 Order name: IV Saline Lock; Complete Time: 15:58 mn 04/05 15:39 Order name: Labs collected and sent; Complete Time: 15:58 mn 04/05 15:39 Order name: O2 Per Protocol; Complete Time: 15:58 mn 04/05 15:39 Order name: O2 Sat Monitoring; Complete Time: 15:58 mn Administered Medications: 16:04 Drug: Ibuprofen 800 mg Route: PO; em 17:38 Follow up: Response: No adverse reaction; Pain is decreased em 17:37 Drug: NS 0.9% 500 ml Route: IV; Rate: bolus; Site: left wrist; em 18:30 Follow up: IV Status: Completed infusion; IV Intake: 500ml em 17:37 Drug: cloNIDine 0.1 mg Route: PO; em 18:30 Follow up: Response: No adverse reaction; Blood pressure is elevated em Disposition: 04/06 07:36 Co-signature as Attending Physician, Reggie Figueroa MD. rn Disposition: 04/05/19 19:04 Discharged to Home. Impression: Headache. - Condition is Stable. - Discharge Instructions: General Headache Without Cause. - Prescriptions for Tylenol- Codeine #3 300-30 mg Oral Tablet - take 1 tablet by ORAL route every 6 hours As needed; 20 tablet. - Medication Reconciliation Form, Thank You Letter, Antibiotic Education, Prescription Opioid Use form. - Follow up: Private Physician; When: 2 - 3 days; Reason: Recheck today's complaints. - Problem is new. - Symptoms are unchanged. Signatures: Dispatcher [employer] EDMS Halina Philip, TILE APPLICATOR TILE APPLICATOR mn Vishnu Burrell, ERGONOMIC SPECIALIST ERGONOMIC SPECIALIST em Reggie Figueroa MD MD rn Calderon, Audri, RN RN aa5 Filomena Bates RN RN ss Corrections: (The following items were deleted from the chart) 04/05 19:13 19:04 04/05/2019 19:04 Discharged to Home. Impression: Headache. Condition is Stable. em Forms are Medication Reconciliation Form, Thank You Letter, Antibiotic Education, Prescription Opioid Use. Follow up: Private Physician; When: 2 - 3 days; Reason: Recheck today's complaints. Problem is new. Symptoms are unchanged. mn
[2019-04-05 22:29] VITALS: TEMP 98.6
[2019-04-05 22:36] VITALS: BP 144/78; O2SAT 97
--- NOTE | 2019-04-06 09:33 | EKG ---
Test Date: 2019-04-05 Test Time: 15:44:54 Inside Sales Professional: MIGDALIA MEASUREMENT RESULTS: Intervals: Rate: 66 WI: 186 QRSD: 220 QT: 520 QTc: 545 [place]: P: WI: 186 QRS: -86 T: 100 INTERPRETIVE STATEMENTS: AV dual-paced rhythm with occasional premature ventricular complexes Abnormal ECG Compared to ECG 05/29/2018 08:19:55 Ventricular premature complex(es) now present Atrial premature complex(es) no longer present Electronically Signed On 04-06-19 09:32:26 CDT by Farhan Perez
== END 2019-04-05 19:13 | disposition home or self-care (01) ==
LOC: ER 14:55
DX: R51 Headache (principal); I10 Essential (primary) hypertension; E03.9 Hypothyroidism, unspecified; Z79.82 Long term (current) use of aspirin; Z95.0 Presence of cardiac pacemaker
CPT/HCPCS: 93005; 85025; 80048; 36415; 83735; 85610; 80076; 84484; 83880; 87804 ×2; 70450; 70496; 70498; 71045; 96360; 99285; Q9967

== ENCOUNTER 2020-06-09 05:53 | Inpatient (IN) | payer OTHER ==
[2020-06-03 11:16] LABS: Absolute Lymphocytes (CBC) 1.6 K/uL (0.7-4.9); Basophils % 0.8 % (0-1.3); Hematocrit 42.5 % (39.6-49.0); Lymphocytes % 15.6 % (15.3-44.8); MPV 8.3 fL (7.6-11.3); RBC Red Blood Cell Count 4.62 M/uL (4.33-5.43)
[2020-06-03 11:18] LABS: Protime INR 0.98
--- NOTE | 2020-06-03 11:22 | RAD REPORT ---
EXAM DESCRIPTION: Keysha Trejo (2 Views)06/03/2020 10:55 am CLINICAL HISTORY: Preop for knee surgery COMPARISON: 2019 FINDINGS: The lungs appear clear of acute infiltrate. The heart is normal size. Pacemaker leads in place IMPRESSION: No acute abnormalities displayed
--- OUTSIDE RECORDS SUMMARY | 2020-06-09 05:56 | XMS REPORT | Continuity of Care Document ---
:1935 Author Organization [facility] t Address [address] [place] [address] Care Team Providers Name Role Phone Frank Blanco MD Primary Care Physician Kesha LLANES, R. Attending Clinician Bijal NELSON Attending Clinician Unavailable Reyes LLANES PhD, S. Attending Clinician KESHA Admitting Clinician Unavailable Payers Payer Name Policy Type Policy Effective Date Expiration Date Sour ce Number AETNA MEDICAREAETNA [id number] 2013 [place] MEDICARE HMO/PPO 00:00:00 Methodis t [id number] Problems Condition Condition Condition Status Onset Resolution Last Treating Co mments Source Name Details Category Date Date Treatment Clinician Date Bilateral Bilateral Disease Active [place] carotid carotid 6-23 [facility] bruits bruits 00:00: st 00 Knee pain Knee pain Disease Active 2018-07 [place] 0-23 [facility] 00:00: st 00 Osteoarthr Osteoarthr Disease Active 2018-07 [place] itis of itis of 0-23 [facility] knee knee 00:00: st 00 Presence Presence Disease Active 2018-07 [place] of stent of stent 0-23 Method i in in 00:00: st coronary coronary 00 artery artery 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 [place] heart heart 0-23 [facility] block block 00:00: st 00 Coronary Coronary Disease Active 2018-07 Overview: [place] artery artery 0-09 Added [facility] disease disease 00:00: automatic st involving involving 00 ally from [place] request heart with heart with for angina angina surgery pectoris pectoris [id number] NSVT NSVT Disease Active 2018-07 [place] (nonsustai (nonsustai 0-08 Me thodi julien julien 00:00: st ventricula ventricula 00 r r tachycardi tachycardi a) a) Shortness Shortness Disease Active [place] of breath of breath 2-07 Meth tami 00:00: st 00 Coronary Coronary Disease Active [place] artery artery 2-07 [facility] disease disease 00:00: st involving involving 00 [place] coronary coronary artery of artery of [place] heart heart without without angina angina pectoris pectoris Dual Dual Disease Active [place] chamber chamber 2-07 [facility] pacemaker pacemaker 00:00: st (SJM, (SJM, 00 08/16/2015 08/16/[address] Parsons) Jaqueline) Essential Essential Disease Active [place] hypertensi hypertensi 2-07 Me thodi on on 00:00: st 00 Pure Pure Disease Active [place] hyperchole hyperchole 2-07 Me thodi sterolemia sterolemia 00:00: st 00 Allergies, Adverse Reactions, Alerts Allergy Allergy Status Severity Reaction(s) Onset Inactive Treating Comm ents Source Name Type Date Date Clinician Statins- Propensi Active Other (See 2018-07 Makes pt [place] [facility] ty to Comments) 0-23 ache all Meth tami Reductas adverse 00:00: over and st e reaction 00 arms hurt Inhibito s to rs drug Latex Adverse Active Info Not [facility] codeine Adverse Active Info Not [facility] Reaction Available [facility] Family [facility] Family Member Diagnosis Comments Start Date Stop Date Source Natural sister Heart disease [place] Islam Natural sister Hypertension [place] Social History Social Habit Start Date Stop Date Quantity Comments Source Sex Assigned At [facility] ethodist Tobacco use and 2020-01-20 2020-01-[address] [facility] ethodist exposure 00:00:00 00:00:00 Alcohol intake 2020-01-20 2020-01-20 Current [facility] thodist 00:00:00 00:00:00 non-drinker of alcohol (finding) Smoking Status Start Date Stop Date Source Former smoker 2020-01-20 00:00:00 2020-01-20 00:00:00 Rob Islam Medications Ordered Filled Start Stop Current Ordering Indication Dosage Frequency Signature Comments Components Source Medication Medication Date Date Medication? Clinician (SIG) Name Name hydroCHLORO 2019- Yes 12.5mg QD Take 12.5 [facility]ivas thiazide 6-23 mg by Methodi (HYDRODIURI 13:20: mouth st L) 12.5 MG 30 daily. tablet aspirin Yes 81mg QD Take 81 mg [place] (ASPIR-81) 6-23 by mouth Metho di 81 MG 13:20: daily. st enteric 30 coated tablet lisinopril Yes 20mg Q.5D Take 20 mg [place] (PRINIVIL) 6-23 by mouth 2 Met hodi 20 mg 13:20: (two) st tablet 30 times a day. ibuprofen Yes 200mg Q6H Take 200 [place] (ADVIL) 200 6-23 mg by [facility] MG tablet 13:20: mouth st 30 every 6 (six) hours as needed for mild pain. metoprolol Yes TAKE 1 1/2 [place] tartrate 3-03 TABLET Method[facility] (LOPRESSOR) 00:00: (75MG) BY s t 50 mg 00 MOUTH tablet TWICE A DAY metoprolol 2019- No TAKE 1 1/2 [place] tartrate 1-21 03-03 TABLET [facility]i (LOPRESSOR) 00:00: 00:00 (75MG) BY st 50 mg 00 :00 MOUTH tablet TWICE A DAY metoprolol 2018-07- No TAKE 1 [place] tartrate 2-08-19 TABLET BY Metho di (LOPRESSOR) 00:00: 00:[address] 50 mg 00 :00 TWICE A tablet DAY metoprolol 2018-07- No [place] 75mg Q.5D Take 1.5 [place] tartrate 008 -21 (ventricula tablets Methodi (LOPRESSOR) 00:00: 00:00 r ([address] 50 mg 00 :00 tachycardia total) by tablet ) (HCC) mouth 2 (two) times a day. Tramadol Tramadol 2018- No Leonel TAKE [address] [facility] [address] HCl HCl 2-05 02-15 [facility] TABLET BY [facility] MOUTH [facility] 00 :00 EVERY 6 l HOURS [facility]pat[facility] ent Clinics Cyclobenzap Cyclobenzap 2017-07 Yes Leonel [address] [facility] rine HCl rine HCl 2-07 Mohan as needed Katiuska kes - 00:00: [facility] amLODIPine Yes 10mg QD Take 10 mg [place] (NORVASC) 1-31 by mouth Method i 10 mg 00:00: daily. st tablet 00 levothyroxi 2015-07 Yes 112ug QD Take 112 [place] ne sodium 1-26 mcg by Methodi (TIROSINT) 00:00: mouth once s t 112 mcg 00 daily. capsule Amlodipine Amlodipine Yes Leonel not [facility] Besylate Besylate [facility] defined [facility] Aspir-81 Aspir-81 Yes Leonel not [facility] Mohan defined [facility] Lisinopril Lisinopril Yes Leonel not [facility] defined [facility] Hydrochloro Hydrochloro Yes Leonel not [facility] thiazide thiazide [facility] defined [facility] [place] Yes Leonel [address] [facility] Mohan as needed [facility] Metoprolol Metoprolol Yes Leonel not [facility] Tartrate Tartrate [facility] defined [facility] Levothyroxi Levothyroxi Yes Leonel not [facility] ne Sodium ne Sodium [place]an defined [place] [facility] Immunizations Ordered Immunization Filled Immunization Date Status Commen ts Source Name Name FLUZONE HIGH-DOSE PF 2019-05-05 Completed [place] 00:00:00 Islam Pneumococcal 2019-05-05 Completed [place] Conjugate 00:00:00 Islam Vital Signs Vital Name Observation Time Observation Value Comments Source Systolic blood 2020-01-20 13:19:00 187 mm[Hg] Robert Olivo pressure Diastolic blood 2020-01-20 13:19:00 88 mm[Hg] Franklyn draper Islam pressure Heart rate 2020-01-20 13:19:00 65 /min Rob Olivo Body height 2020-01-20 13:19:00 177.8 cm Rob Olivo Body weight 2020-01-20 13:19:00 89.359 kg Rob Olivo BMI 2020-01-20 13:19:00 28.27 kg/m2 Rob Olivo Procedures Procedure Date / Time Performed Performing Clinician [facility] e US CAROTID DUPLEX 2020-01-20 14:39:01 Lurdes Rebolledo Me thodist BILATERAL CV PACEMAKER DEFIB ILR 2020-01-19 00:00:00 Lai Parsons on Islam INTERROGATION Han ECG 12-LEAD 2019-08-19 17:09:18 Burke Chambers Meth odist CV PACEMAKER DEFIB ILR 2019-08-19 00:00:00 Burke Chambers on Islam INTERROGATION CV PACEMAKER DEFIB ILR 2019-07-21 00:00:00 Lai Parsons on Islam INTERROGATION Han Plan of Care Planned Activity Planned Date Details Comments Source Future Scheduled 2020-02-28 INFLUENZA VACCINE Goldie serena Islam Test 00:00:00 [code = INFLUENZA VACCINE] Future Scheduled 1999 65+ PNEUMOCOCCAL Rivas Islam Test 00:00:00 VACCINE (1 of 1 - PPSV23) [code = 65+ PNEUMOCOCCAL VACCINE (1 of 1 - PPSV23)] Future Scheduled 1984 SHINGLES VACCINES (#1) [place] Islam Test 00:00:00 [code = SHINGLES VACCINES (#1)] Encounters Start End Encounter Admission Attending Care Care Encounter Source Date/Time Date/Time Type Type Clinicians Facility Department ID 2020-05-12 2020-05-12 Outpatient [facility] [id number] [facility] 2020-04-14 2020-04-14 Outpatient Ra Hernández [id number] [facility] [address] 14:18:00 14:18:00 [facility] 2020-04-13 2020-04-13 Outpatient Ra Hernández [id number] 11:28:00 11:28:00 [facility] 2020-03-29 2020-03-29 Outpatient Ra Hernández [id number] [facility] [address] 10:41:00 10:41:00 [facility] 2020-02-25 2020-02-25 [facility] [id number] 09:00:00 09:00:00 [facility] 2020-01-20 2020-01-20 Outpatient [facility] [id number] [place] 00:00:00 00:00:00 [place] [address] 2020-01-20 2020-01-20 [facility] [id number] [place] 00:00:00 00:00:00 [place] [address] 2019-05-15 2019-05-15 [id number] [place] [address] 00:00:00 00:00:00 [place] [address] 2018-11-25 2018-11-25 [facility] [id number] [address] 13:30:00 13:30:00 [facility] 2018-09-03 2018-09-03 [facility] [id number] 15:39:00 15:39:00 [facility] 2018-08-28 2018-08-28 [facility] [id number] 14:30:00 14:30:00 [facility] 2018-08-27 2018-08-27 [facility] [id number] [address] 16:19:00 16:19:00 [facility] 2018-07-31 2018-07-31 [facility] [id number] [address] 14:00:00 14:00:00 [facility] 2018-07-24 2018-07-24 [facility] [id number] 15:30:00 15:30:00 [facility] 2018-07-17 2018-07-17 [facility] [id number] 14:00:00 14:00:00 [facility] 2018-07-05 2018-07-05 [facility] [id number] 10:00:00 10:00:00 [facility] 2018-05-08 2018-05-08 [facility] [id number] [facility] 08:00:00 08:00:00 [facility] Results Test Description Test Time Test Comments Results Result Comments Source ECG 12 lead 2019-08-19 17:46:57 Test Item Value Reference Range Interpretation Comme nts Ventricular rate (test code = 253) 72 Atrial rate (test code = 255) 53 QRSD interval (test code = 260) 222 QT interval (test code = 264) 514 QTC interval (test code = 265) 562 QRS axis 1 (test code = 268) -87 T wave axis (test code = 270) 89 EKG impression (test code = 273) AV dual-paced rhythm with frequent premature ventricular complexes-Abnormal ECG-In automated comparison with ECG of 21-MAY-2019 10:30,-Vent. rate has increased BY 8 BPM- Rob Olivo
--- OUTSIDE RECORDS SUMMARY | 2020-06-09 05:56 | XMS REPORT | Clinical Summary ---
:1935 Author Organization [facility] Address [address] [place] [address] Care Team Providers Name Role Phone Frank Blanco MD Primary Care Provider Allergies Active Allergy Reactions Severity Noted Date Comments [id number]-Cgs Other (See Comments) 05/21/2019 Make s pt ache all Reductase Inhibitors over an d arms hurt Medications Medication Sig Dispensed Refills Start End Date Status Date amLODIPine (NORVASC) 10 Take 10 mg 3 Active mg tablet by mouth 7 daily. levothyroxine sodium Take 112 3 Active (TIROSINT) 112 mcg mcg by 6 capsule mouth once daily. hydroCHLOROthiazide Take 12.5 0 Active (HYDRODIURIL) 12.5 MG mg by mouth tablet daily. aspirin (ASPIR-81) 81 Take 81 mg 0 Active MG enteric coated by mouth tablet daily. lisinopril (PRINIVIL) Take 20 mg 0 Active 20 mg tablet by mouth 2 (two) times a day. ibuprofen (ADVIL) 200 Take 200 mg 0 Active MG tablet by mouth every 6 (six) hours as needed for mild pain. metoprolol tartrate TAKE 1 1/2 270 tablet 3 Active (LOPRESSOR) 50 mg TABLET 0 tablet (75MG) BY MOUTH TWICE A DAY metoprolol tartrate Take 1.5 270 tablet 3 08/19/19 Discontinued (LOPRESSOR) 50 mg tablets (75 9 20 (Formulary tabletIndications: mg total) c douglas) Coronary artery disease by mouth 2 involving [place] (two) times coronary artery of a day. [place] heart without angina pectoris, VT (ventricular tachycardia) (HCC) metoprolol tartrate TAKE 1 180 tablet 0 08/19/19 Discontinued (LOPRESSOR) 50 mg TABLET BY 9 20 (R eorder) tablet MOUTH TWICE A DAY metoprolol tartrate TAKE 1 07/31 270 tablet 3 09/30/19 Discontinued (LOPRESSOR) 50 mg TABLET 0 20 (R eorder) tablet (75MG) BY MOUTH TWICE A DAY Active Problems Problem Noted Date Bilateral carotid bruits 01/20/2020 Knee pain 05/21/2019 Osteoarthritis of knee 05/21/2019 Presence of stent in coronary artery 05/21/2019 Complete heart block 05/21/2019 Coronary artery disease involving [place] heart with an galilea pectoris 05/07/2019 Overview: Added automatically from request for alejandro khalil [id number] NSVT (nonsustained ventricular tachycardia) 05/06/2019 Shortness of breath 09/05/2016 Coronary artery disease involving [place] coronary susu ry of [place] heart 09/05/2016 without angina pectoris Dual chamber pacemaker ([facility], 08/16/[address] Parsons ) 09/05/2016 Essential hypertension 09/05/2016 Pure hypercholesterolemia 09/05/2016 Encounters Date Type Specialty Care Team Description 01/20/2020 Office Visit Cardiology Lurdes Rebolledo MD Coronary artery disease involving [place] coronary artery of [place] heart without angina pectoris (Primary Dx); Bilateral carot id bruits 01/20/2020 Travel 09/30/2019 Orders Only Cardiology Misha Appiah MA 08/20/2019 Orders Only Cardiology Burke Chambers MD PhD 08/19/2019 Office Visit Cardiology Burke Chambers MD PhD Dual chamber pacemaker ([facility], 08/16/[address] Parsons) (Primary Dx); Complete heart block (HCC); NSVT (nonsustai julien ventricular tachycardia) (HCC); Coronary artery disease involving [place] coronary artery of [place] heart without angina pectoris; VT (ventricular tachycardia) (HCC) 07/01/2019 Refill Cardiology Lurdes Rebolledo MD Med Refi ll after 06/09/2019 Immunizations Name Administration Dates Next Due FLUZONE HIGH-DOSE PF 05/05/2019 Pneumococcal Conjugate 05/05/2019 Surgical History Surgery Date Site/Laterality Comments INSERT / REPLACE / REMOVE PACEMAKER STENT KNEE SURGERY Left CARDIAC CATHETERIZATION 05/15/2019 N/A Procedur e: Selective coronary angiogr aphy; Surgeon: Lori Rebolledo MD; Location: [facility] [employer] Invasive Loc ation; Service: Cardiol ogy; Laterality: N/A; CATARACT EXTRACTION, BILATERAL Medical History Medical History Date Comments Hypertension Coronary artery disease Disease of thyroid gland Family History Medical History Relation Name Comments Heart disease Sister Hypertension Sister Relation Name Status Comments Father Mother Sister Social History Tobacco Use Types Packs/Day Years Used Date Former Smoker Smokeless Tobacco: Never Used Alcohol Use Drinks/Week oz/Week Comments No Sex Assigned at Date Recorded Not on file Last Filed Vital Signs Vital Sign Reading Time Taken Comments Blood Pressure 187/88 01/20/2020 1:19 PM CDT Pulse 65 01/20/2020 1:19 PM CDT Temperature - - Respiratory Rate - - Oxygen Saturation - - Inhaled Oxygen Concentration - - Weight 89.4 kg (197 lb) 01/20/2020 1:19 PM CDT Height 177.8 cm (5' 10") 01/20/2020 1:19 PM CDT Body Mass Index 28.27 01/20/2020 1:19 PM CDT Plan of Treatment Date Type Specialty Care Team Description 01/18/2021 Office Visit Cardiology Lurdes Rebolledo MD [address] [facility] [address] [place], [place] [address] [phone] Health Maintenance Due Date Last Done Comments SHINGLES VACCINES (#1) 1984 65+ PNEUMOCOCCAL VACCINE (1 of 1 - PPSV23) 03/12/199905/05, 05/05/2019 INFLUENZA VACCINE 02/28/2020 05/05/2019, 05/05/2019 Procedures Procedure Name Priority Date/Time Associated Comments Diagnosis US CAROTID DUPLEX STAT 01/20/2020 2:39 Coronary artery Res ults for this BILATERAL PM CDT disease involving procedure are in [place] coronary the results artery of [place] section. heart without angina pectoris Bilateral carotid bruits CV PACEMAKER DEFIB ILR Routine 01/19/2020 INTERROGATION ECG 12-LEAD Routine 08/19/2019 5:09 Dual chamber Results for this PM FLIGHT SOFTWARE TEST ENGINEER pacemaker ([facility], procedure ar e in 08/16/[address] the results Parsons) section. Complete heart block (HCC) NSVT (nonsustained ventricular tachycardia) (HC C) Coronary artery disease involving [place] coronary artery of [place] heart without angina pectoris VT (ventricular tachycardia) (HCC) CV PACEMAKER DEFIB ILR Routine 08/19/2019 INTERROGATION CV PACEMAKER DEFIB ILR Routine 07/21/2019 INTERROGATION after 06/09/2019 Results Us carotid duplex (01/20/2020 2:39 PM CDT) Specimen Narrative Performed At [facility] Carotid Susu ry Ultrasound Report Pat.Name: DANISH LOCK Pat.ID: [id number] .Date: 01/20/2020 Refer.MD: LURDES REBOLLEDO MD Exam Time: 2:05:00 PM Study Type:C arotid Age: 8 1935,84Y Sex: MALE Sonogrphr: Nieves Zimmerman RVT Pat. Stat.:[facility] ol: NICOLE, CPT - 4: 00323 Echo Wendy nt ID:[id number] Order ID: [id number] Reason for Study:Follow up study, Caroti d artery stenosis, S/P right carotid artery stent Race: C SUMMARY: CAROTID ARTERY SCAN RIGHT: There is hard plaque in the com mon carotid artery. There is a patent stent noted in the bulb/proximal internal carotid artery. Colorflow is undisturbed. There is an tegrade flow in the vertebral artery. LEFT: There is hard plaque in the common carot id artery. There is hard and calcified plaque noted in the bulb extending into the proximal internal and external carotid a rtery. Colorflow is disturbed with elevated velocities. There is ant egrade flow in the vertebral artery. PRELIMINARY FINDINGS 1. Patent stent in the right bulb/inte rnal carotid artery. 2. >50% stenosis in the external carotid artery, bilaterally. 4. 50-69% stenosis in the left bulb/prox imal internal carotid artery. In comparison to study done 11/12/2018, findings demonstrate essentially no change, bilaterally . PHYSICIAN INTERPRETATION Bilateral carotid duplex examination dem onstrated atherosclerotic plaques in the bulbs. Patent stent in the right bulb/internal carotid artery. Greater than 50% stenosis in the bilater al external carotid artery. 50-69% stenosis in the left bulb and pro ximal internal carotid artery. Both vertebral arteries are antegrade. FINDINGS: Carotid Findings: Right Left Verteb.Flw Antegrade Antegrade Subclavian Biphasic Biphasic MEASUREMENTS: DOPPLER Right CCA Dist CCA Dist PSV 64.5 cm/s CCA Dist EDV 9.84 cm/s Right CCA Mid CCA Mid PSV 62.3 cm/s CCA Mid EDV 9.84 cm/s Right CCA Prox CCA Prox PSV 42.7 cm/s CCA Prox EDV 5.47 cm/s Right Bulb Bulb PSV 97.6 cm/s Bulb EDV 12.5 cm/s Right ECA Prox ECA Prox PSV 221 cm/s ECA Prox EDV 16.1 cm/s Right ICA Dist ICA Dist PSV 68.5 cm/s ICA Dist EDV 17.1 cm/s Right ICA Mid ICA Mid PSV 59.8 cm/s ICA Mid EDV 9.44 cm/s Right ICA Prox ICA Prox PSV 118 cm/s ICA Prox EDV 18.9 cm/s Right Vertebral Vertebral PSV 44.5 cm/s Vertebral EDV 7.99 cm/s Right SCA Prox SCA Prox PSV 107 cm/s SCA Prox EDV 0 cm/s Left CCA Dist CCA Dist PSV 64.5 cm/s CCA Dist EDV 9.44 cm/s Left CCA Mid CCA Mid PSV 74 cm/s CCA Mid EDV 11 cm/s Left CCA Prox CCA Prox PSV 61.4 cm/s CCA Prox EDV 9.44 cm/s Left Bulb Bulb PSV 78.7 cm/s Bulb EDV 11 cm/s Left ECA Prox ECA Prox PSV 282 cm/s ECA Prox EDV 14.1 cm/s Left ICA Dist ICA Dist PSV 110 cm/s ICA Dist EDV 14.8 cm/s Left ICA Mid ICA Mid PSV 144 cm/s ICA Mid EDV 21.2 cm/s Left ICA Prox ICA Prox PSV 176 cm/s ICA Prox EDV 36 cm/s Left SCA Prox SCA Prox PSV 201 cm/s SCA Prox EDV 0 cm/s Left Vertebral Vertebral PSV 47 cm/s Vertebral EDV 7 cm/s Right ICA/CCA Ratio ICA/CCA PSV 1.89 Left ICA/CCA Ratio ICA/CCA PSV 2.38 Signed 01/23/2020 06:32 AM Lurdes Rebolledo MD Procedure Note Interface, Radiology Results In - 2019 6:33 AM CDT [facility] Carotid Artery Ultras ound Report Pat.Name: DANISH LOCK Pat.I D: [id number] .Date: 01/20/2020 Refer .MD: LURDES REBOLLEDO MD Exam Time: 2:05:00 PM Study Type:Carotid Age: 8 1935,84Y Sex: MALE Sonogrphr: Nieves Zimmerman RVT Pat. Stat.:Outpatient Room: [facility] Vol: SD, CPT - 4: 95927 Echo Event ID:[id number] Order ID: [id number] Reason for Study:Follow up study, Caroti d artery stenosis, S/P right carotid artery stent Race: C SUMMARY: CAROTID ARTERY SCAN RIGHT: There is hard plaque in the comm on carotid artery. There is a patent stent noted in the bulb/proximal internal carotid artery. Colorflow is undisturbed. There is ant egrade flow in the vertebral artery. LEFT: There is hard plaque in the c ommon carotid artery. There is hard and calcified plaque noted in the bulb extending into the proximal internal and external carotid a rtery. Colorflow is disturbed with elevated velocities. There is ante grade flow in the vertebral artery. PRELIMINARY FINDINGS 1. Patent stent in the right bulb/inter nal carotid artery. 2. >50% stenosis in the external carotid artery, bilaterally. 4. 50-69% stenosis in the left bulb/prox imal internal carotid artery. In comparison to study done 11/12/2018, findings demonstrate essentially no change, bilaterally . PHYSICIAN INTERPRETATION Bilateral carotid duplex examination dem onstrated atherosclerotic plaques in the bulbs. Patent stent in the right bulb/internal carotid artery. Greater than 50% stenosis in the bilater al external carotid artery. 50-69% stenosis in the left bulb and pro ximal internal carotid artery. Both vertebral arteries are antegrade. FINDINGS: Carotid Findings: Right Left Verteb.Flw Antegrade Antegrade Subclavian Biphasic Biphasic MEASUREMENTS: DOPPLER Right CCA Dist CCA Dist PSV 64.5 cm/s CCA Dist EDV 9.84 cm/s Right CCA Mid CCA Mid PSV 62.3 cm/s CCA Mid EDV 9.84 cm/s Right CCA Prox CCA Prox PSV 42.7 cm/s CCA Prox EDV 5.47 cm/s Right Bulb Bulb PSV 97.6 cm/s Bulb EDV 12.5 cm/s Right ECA Prox ECA Prox PSV 221 cm/s ECA Prox EDV 16.1 cm/s Right ICA Dist ICA Dist PSV 68.5 cm/s ICA Dist EDV 17.1 cm/s Right ICA Mid ICA Mid PSV 59.8 cm/s ICA Mid EDV 9.44 cm/s Right ICA Prox ICA Prox PSV 118 cm/s ICA Prox EDV 18.9 cm/s Right Vertebral Vertebral PSV 44.5 cm/s Vert ebral EDV 7.99 cm/s Right SCA Prox SCA Prox PSV 107 cm/s SCA Prox EDV 0 cm/s Left CCA Dist CCA Dist PSV 64.5 cm/s CCA Dist EDV 9.44 cm/s Left CCA Mid CCA Mid PSV 74 cm/s CCA Mid EDV 11 cm/s Left CCA Prox CCA Prox PSV 61.4 cm/s CCA Prox EDV 9.44 cm/s Left Bulb Bulb PSV 78.7 cm/s Bulb EDV 11 cm/s Left ECA Prox ECA Prox PSV 282 cm/s ECA Prox EDV 14.1 cm/s Left ICA Dist ICA Dist PSV 110 cm/s ICA Dist EDV 14.8 cm/s Left ICA Mid ICA Mid PSV 144 cm/s ICA Mid EDV 21.2 cm/s Left ICA Prox ICA Prox PSV 176 cm/s ICA Prox EDV 36 cm/s Left SCA Prox SCA Prox PSV 201 cm/s SCA Prox EDV 0 cm/s Left Vertebral Vertebral PSV 47 cm/s Vert ebral EDV 7 cm/s Right ICA/CCA Ratio ICA/CCA PSV 1.89 Left ICA/CCA Ratio ICA/CCA PSV 2.38 Signed 01/23/2020 06:32 AM Lurdes Rebolledo MD Performing Organization Address City/State/ZIP Code Phon e Number [facility] [address] [place] [address] CV pacemaker defib or ilr interrogation (01/19/2020) Narrative Performed At This result has an attachment that is no t available. 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 rate has increased BY 8 BPM- Specimen Narrative Performed At This result has an attachment that is no t available. Performing Organization Address City/State/ZIP Code Phon e Number [facility] M[facility] [address] [place] [address] CV pacemaker defib or ilr interrogation (08/19/2019) Narrative Performed At This result has an attachment that is no t available. CV pacemaker defib or ilr interrogation (07/21/2019) Narrative Performed At This result has an attachment that is no t available. after 06/09/2019 Advance Directives For more information, please contact: [phone] Type Date Recorded Patient Cane Flume Watchman Explanati on Advance Directives, Living Will and Medical Power of Gallery Host
--- OUTSIDE RECORDS SUMMARY | 2020-06-09 05:56 | XMS REPORT ---
:1935 Author Organization [employer] Care Team Providers Name Role Phone Leonel Mohan Provider Role Unavailable Allergies No Known Allergies Problems Problem Type Condition Code Onset Dates Condition Statu s Problem Pain in left knee M25.562 Active Problem 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 Problem Left hand pain M79.642 Active Problem Primary osteoarthritis of right M17.11 Active knee Problem Trigger finger, left middle finger M65.332 Active Problem Pain in right knee M25.561 Active Problem Other chronic pain G89.29 Active Problem Aftercare following joint Z47.1 Ac tive replacement surgery Problem Presence of left artificial knee Z96.652 Active joint Medications No Known Medications Results No Known Results Summary Purpose [employer]Clinical[employer] Submission
--- OUTSIDE RECORDS SUMMARY | 2020-06-09 05:56 | XMS REPORT ---
:1935 Author Organization [facility] Address [address], [address] [place] [address] Care Team Providers Name Role Phone Leonel Mohan Unavailable [phone] PROBLEMS Type Condition ICD9-CM [id number] Onset Condition SNOMED Code Notes Code Code Dates Status Problem Primary M17.0 Active 118573425 osteoarthritis of both knees Problem Pain in left knee M25.562 Active 25300349529075 2 Problem Other chronic G89.29 Active 55493267 pain Problem Left hand pain M79.642 Active 215361958526302 Problem Trigger finger, M65.332 Active 675603639 left middle finger Problem Pain in right M25.561 Active 83101554 knee Problem Presence of left Z96.652 Active 156565837 artificial knee joint Problem Aftercare Z47.1 Active 481468604 following joint replacement surgery Problem Primary M17.11 Active 311078569693255 osteoarthritis of right knee ALLERGIES Allergen (clinical drug Drug/Non Drug Allergy Reaction Allergy Type Onset Date Status ingredient) documented on EMR codeine codeine Unknown Drug Allergy Active Latex Unknown Drug Allergy Active ENCOUNTERS from 1935 to 2020-05-13 Encounter Location Date Provider Diagnosis [facility] [address], [place] [address] IMMUNIZATIONS Vaccine Route Administration Date Status Bupivicaine [place] Unknown Jul 31, 2018 Administered Bupivicaine [place] Unknown Jul 24, 2018 Administered Bupivicaine [place] Unknown Jul 17, 2018 Administered Hyalgan 20 mg Unknown Jul 31, 2018 Administered Hyalgan 20 mg Unknown Jul 24, 2018 Administered Hyalgan 20 mg Unknown Jul 17, 2018 Administered Betamethasone Sodium Phosphate Unknown November 25, 2018 A dministered LIDOCAINE HCL 10MG/ML Unknown November 25, 2018 Administer ed SOCIAL HISTORY Tobacco Use: Social History Observation Description Date Details (start date - stop date) Never Smoker Sex Assigned At : Social History Observation Description Sex Assigned At Unknown Alcohol Screen Question Answer Notes Did you have a drink containing alcohol in the past year? No Points 0 Interpretation Negative Tobacco Use/Smoking Question Answer Notes Are you a never smoker Additional Findings: Tobacco Non-User Current non-smoker REASON FOR REFERRAL No Information VITAL SIGNS No information MEDICATIONS Medication SIG (Take, Route, Frequency, Start Date End Date Status Duration) Metoprolol Tartrate Active Hydrochlorothiazide Active Amlodipine Besylate Active Levothyroxine Sodium Active Aspir-81 Active Lisinopril Active PROCEDURES No Information RESULTS No Results REASON FOR VISIT TKA MEDICAL (GENERAL) HISTORY Type Description Date Medical History BLOOD THINNERS- ASPIRIN Medical History HBP Medical History 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 Surgical History PACE MAKER 07/2015 Surgical History (2) STENTS (BEHIND HEART) (ARTERY) 2000 Surgical History LEFT TKA 06/04/2018 Hospitalization History LEFT TKA 06/04/18 Goals Section No Information Health Concerns No Information MEDICAL EQUIPMENT No Information MENTAL STATUS No Information FUNCTIONAL STATUS No Information ASSESSMENTS No Information PLAN OF TREATMENT No Information Insurance Providers Payer Name Payer Payer Insured Patient Coverage Coverage End Address Phone Name Relationship to Start Date Micah e Insured [employer] [phone] Siddharth Lock [place] MEDICARE [id number] [place] [id number]
--- OUTSIDE RECORDS SUMMARY | 2020-06-09 05:56 | XMS REPORT ---
:1935 Author Organization [employer] Care Team Providers Name Role Phone Leonel Mohan Provider Role Unavailable Allergies No Known Allergies Problems Problem Type Condition Code Onset Dates Condition Statu s Problem Pain in left knee M25.562 Active Problem 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 Assessment Primary osteoarthritis of right M17.11 Active knee Problem Left hand pain M79.642 Active Problem [...]
[2020-06-09] MEDS ORDERED: Ringers Lactate 1,000 ML IV ONE ×2 (06:20→07:05)
[2020-06-09] MEDS ORDERED: CEFAZOLIN/SWI 2gm 2 GM/20 ML SYR ONE (06:20)
[2020-06-09] MEDS ORDERED: FENTANYL CITR 100 MCG/2 ML ONE (06:40)
[2020-06-09] MEDS ORDERED: LIDOCAINE 2% MPF 5 ML VIAL ONE (06:40)
[2020-06-09] MEDS ORDERED: propofoL 200 MG/20 ML VIAL IV ONE (06:40)
[2020-06-09] MEDS ORDERED: MIDAZOLAM HCL 2 MG/2 ML INJ ONE (06:40)
[2020-06-09] MEDS ORDERED: dexAMETHasone 10 MG/ML VIAL ONE (06:49)
[2020-06-09] MEDS ORDERED: BUPIVACAINE 0.25% PF 30 ML VIAL ONE ×2 (06:50→07:06)
[2020-06-09] MEDS ORDERED: LIDOCAINE 1% MPF 5 ML VIAL ONE (06:51)
[2020-06-09] MEDS ORDERED: HYDROMORPHONE HCL 1 MG/ML INJ ONE (07:50)
[2020-06-09] MEDS ORDERED: TRANEXAMIC ACID 1,000 MG in NA CHLORIDE 0.9% 50 ML IV SCH (08:00)
[2020-06-09] MEDS ORDERED: EPHEDRINE SULF 50 MG/ML VIAL ONE (08:15)
[2020-06-09] MEDS: BUPIVACA 0.5%/EPI 0.0005%/PF 30 ML VIAL ONE ×2 (08:30→09:25)
[2020-06-09] MEDS ORDERED: NA CIT/CITRIC AC 30 ML ORAL UDC ONE (08:42)
[2020-06-09] MEDS ORDERED: KETOROLAC 30 MG/ML INJ ONE (10:02)
--- NOTE | 2020-06-09 10:28 | P.BOP ---
Preoperative diagnosis: right knee osteoarthritis Postoperative diagnosis: same Primary procedure: right total knee arthroplasty Infusion Nurse: NONE,NONE Estimated blood loss: 20 cc Specimen: right knee bone remnants Findings: see dictation Anesthesia: General Complications: None Implants: [employer] Pancho Persona 10 CR STD femu, G tibia, 35 patella, 10 mm MC poly Fluids & blood products: per anesthesia record; TT: 83 mins @ 300 mmHg Transferred to: Recovery Room Condition: Good
[2020-06-09] MEDS ORDERED: ONDANSETRON 4 MG/2 ML VIAL IV PRN (10:29)
[2020-06-09] MEDS ORDERED: MORPHINE 4 MG/ML SYR IV PRN (10:29)
[2020-06-09] MEDS: HYDROMORPHONE HCL 1 MG/ML INJ ONE ×4 (10:34→11:29)
[2020-06-09] MEDS ORDERED: TRAMADOL HCL 50 MG TAB PO PRN (10:34)
[2020-06-09 10:54] LABS: Hematocrit 39.5 % (39.6-49.0)
--- NOTE | 2020-06-09 11:06 | RAD REPORT ---
EXAM DESCRIPTION: RAD - Knee Right 2 View - 06/09/2020 10:57 am CLINICAL HISTORY: Post Op Total knee arthroplasty COMPARISON: No comparisons FINDINGS: Right total knee arthroplasty is noted. Hardware is in expected alignment and positioning. Skin annmarie are noted. No unexpected finding.
[2020-06-09 12:01] VITALS: BMI 30.1
[2020-06-09] MEDS ORDERED: CEFAZOLIN/SWI 1gm 1 GM/10 ML SYR IVP SCH (15:00)
[2020-06-09] MEDS: CEFAZOLIN/SWI 1gm 1 GM/10 ML SYR IVP SCH (15:57)
[2020-06-09] MEDS ORDERED: CEFAZOLIN/NS 1gm 1 GM/50 ML BAG IVPB SCH (17:00)
[2020-06-09] MEDS: HYDROCODONE/APAP 7.5/325 MG TAB PO PRN (20:48)
[2020-06-09] MEDS: METOPROLOL TAR 50 MG TAB PO SCH (20:49)
[2020-06-09] MEDS: lisinopriL 20 MG TAB PO SCH (20:52)
[2020-06-10] MEDS: CEFAZOLIN/SWI 1gm 1 GM/10 ML SYR IVP SCH ×2 (01:00→08:00)
[2020-06-10] MEDS: HYDROCODONE/APAP 7.5/325 MG TAB PO PRN ×4 (02:03→21:01)
[2020-06-10] MEDS: ENOXAPARIN 30 MG/0.3 ML SQ SCH ×4 (02:05→21:00)
[2020-06-10 04:20] LABS: Absolute Lymphocytes (CBC) 0.9 K/uL (0.7-4.9); Basophils % 0.2 % (0-1.3); Hematocrit 37.2 % (39.6-49.0); Lymphocytes % 5.6 % (15.3-44.8); MPV 8.3 fL (7.6-11.3); RBC Red Blood Cell Count 3.99 M/uL (4.33-5.43)
[2020-06-10 04:41] LABS: Potassium 4.2 mmol/L (3.5-5.1)
[2020-06-10] MEDS: AMLODIPINE 10 MG TAB PO SCH (05:04)
[2020-06-10] MEDS: LEVOTHYROXINE SOD 0.112 MG TAB PO SCH (05:04)
[2020-06-10] MEDS: hydroCHLOROthiazide 12.5 MG CAP PO SCH (05:04)
[2020-06-10] MEDS ORDERED: MIDAZOLAM HCL 2 MG/2 ML INJ ONE (07:49)
[2020-06-10] MEDS ORDERED: propofoL 200 MG/20 ML VIAL IV ONE (07:49)
[2020-06-10] MEDS ORDERED: dexAMETHasone 10 MG/ML VIAL ONE (07:50)
[2020-06-10] MEDS ORDERED: LIDOCAINE 2% MPF 5 ML VIAL ONE (07:50)
[2020-06-10] MEDS ORDERED: KETOROLAC 30 MG/ML INJ ONE (07:50)
[2020-06-10] MEDS ORDERED: ROCURONIUM 50 MG/5 ML VIAL IV ONE (07:50)
[2020-06-10] MEDS ORDERED: FENTANYL CITR 250 MCG/5 ML ONE (07:50)
[2020-06-10 09:13] LABS: Urine Appearance CLEAR; Urine Bilirubin NEGATIVE (NEG); Urine Blood NEGATIVE (NEG); Urine Color YELLOW; Urine Glucose NEGATIVE (NEG); Urine Protein TRACE (NEG); Urine Urobilinogen 0.2 mg/dL (0.2-1.0)
[2020-06-10] MEDS: CELECOXIB 100 MG CAPSULE PO SCH (09:27)
[2020-06-10] MEDS: lisinopriL 20 MG TAB PO SCH ×2 (09:27→21:00)
[2020-06-10] MEDS: METOPROLOL TAR 50 MG TAB PO SCH ×2 (09:29→21:00)
[2020-06-10 09:50] LABS: Urine Bacteria NONE SEEN /HPF (NONE SEEN); Urine Culture Reflex Order NOT NEEDED; Urine RBC <5 /HPF (NONE SEEN)
--- NOTE | 2020-06-10 12:16 | P.PN ---
Subjective Date of Service: 06/10/20 Chief Complaint: s/p R TKA Subjective: Working w/ PT patient reports some breakthrough pain Physical Examination - Vital Signs Temperature: 97.4 F Blood Pressure: 148/65 Pulse: 70 Respirations: 16 Pulse Ox (%): 96 - Physical Exam General: Alert, In no apparent distress Musculoskeletal: Other (RLE: dressing c/d/i; +EHL/FHL/GSC/TA; sensation grossly intact distally) - Studies Laboratory Data (last 24 hrs) 06/10/20 03:55: Sodium 140, Potassium 4.2, BUN 31 H, Creatinine 1.00, Glucose 113 H 06/10/20 03:55: WBC 16.6 H D, Hgb 12.6 L, Hct 37.2 L, Plt Count 274 Assessment And Plan - Plan Danish is an 85 yo male s/p right TKA POD#1 -PT to mobilize WBAT RLE -lovenox for DVT prophylaxis -likely d/c to inpatient rehab after insurance approval
[2020-06-11] MEDS: HYDROCODONE/APAP 7.5/325 MG TAB PO PRN ×5 (00:33→21:07)
--- NOTE | 2020-06-11 00:46 | CON ---
Date of Consultation: 06/10/2020 Reason For Consultation: Medical management. History Of Present Illness: Mr. Lock is a pleasant 85-year-old white male patient who had right knee replacement surgery by Dr. Mohan yesterday, and after a surgery was done, the patient was admitted to medical floor and consultation was requested for medical management. When I saw him this morning, he denied any complaints. No chest pain, shortness of breath, nausea, or vomiting. His last bowel movement was yesterday morning before he came to the hospital for further surgery. His pain is under good control with current pain medications. Allergies: TO CODEINE, STATIN, FENOFIBRATE, ZETIA, AND NIACIN. Medications: List reviewed. Review of Systems: Musculoskeletal: Has right knee pain. All other systems reviewed and negative. Past Medical History: Significant for osteoarthritis at multiple sites, benign prostatic hypertrophy, hypothyroidism, hypertension, mixed hyperlipidemia, coronary artery disease, carotid artery stenosis on both sides. Past Surgical History: Cataract surgery, coronary artery stent placement, pacemaker placement, hemorrhoid surgery, and knee surgery. Family History: Father with lymphoma. Mother also with lymphoma. Brother; coronary artery disease and stroke. Sister; coronary artery disease and breast cancer. Social History: Prior history of smoking, not at present time. Use of alcohol negative. Physical Examination: VITAL SIGNS: This morning when I saw him; temperature 97.4, pulse 61, respiratory rate 16, blood pressure 142/72, 96% oxygen saturation. Height 5 feet 10 inches, weight 210 pounds. General: Awake, alert, oriented, not in distress. HEENT: Head atraumatic, normocephalic. Conjunctivae nonerythematous. Sclerae white. Mouth, no thrush or edema noted. Ears/Nose, no mass, lesion, discharge noted. Neck: Supple. No JVD, lymph nodes, bruit, thyromegaly noted. Lungs: Bilateral good equal air entry. Clear to auscultation. No rhonchi. No rales. Heart: Normal heart sounds, no murmur or gallop. Abdomen: Soft, bowel sounds normal. No guarding, rigidity, tenderness, mass, hepatosplenomegaly, distention, or bruit noted. Extremities: Right leg has a dressing present and neurovascular status of the right foot toes is normal. Skin: No rash, ulcer, cellulitis. Lymphatics: No lymph node enlargement in neck, supraclavicular, infraclavicular region. Neuro: No focal neurological deficit. Chest: Unremarkable. External Genitalia: Deferred. Rectal: Deferred. Laboratory Data: On 06/03/2020, white count was 10, hemoglobin 14.6, platelets 320. Today, white count 16.6, hemoglobin 12.6, platelets 274. Today sodium 140, potassium 4.2, chloride 107, bicarb 29, BUN 31, creatinine 1, glucose 113. Urinalysis ordered today came back unremarkable. Impression: 1. Hypertension. 2. Hyperlipidemia, mixed. 3. Hypothyroidism. 4. Coronary artery disease. 5. Carotid artery stenosis. 6. Benign prostatic hypertrophy. 7. Osteoarthritis, multiple sites. 8. Elevated WBC count. Plan: We will go ahead and continue home medications per order. The patient is on DVT prophylaxis using Lovenox. We will continue that. Hopefully in next 2 days, we can change to oral anticoagulation therapy for DVT prophylaxis. Physical therapy to continue to work with the patient and the patient would like to go to rehab floor if possible for his rehab therapy and consultation is in place. Details on plan of treatment discussed with the patient. I will see him tomorrow for followup. Thank you very much for allowing me to participate in his care. I will continue to follow with you. DEANDRE/BLAISE Voice ID: [id number] Report ID: [id number] MILLIE
[2020-06-11] MEDS: AMLODIPINE 10 MG TAB PO SCH (05:45)
[2020-06-11] MEDS: LEVOTHYROXINE SOD 0.112 MG TAB PO SCH (05:45)
[2020-06-11] MEDS: hydroCHLOROthiazide 12.5 MG CAP PO SCH (05:46)
[2020-06-11 06:15] LABS: Absolute Lymphocytes (CBC) 1.4 K/uL (0.7-4.9); Basophils % 0.8 % (0-1.3); Hematocrit 38.2 % (39.6-49.0); Lymphocytes % 11.6 % (15.3-44.8); MPV 8.3 fL (7.6-11.3); RBC Red Blood Cell Count 4.09 M/uL (4.33-5.43)
[2020-06-11 06:22] LABS: Albumin 3.2 g/dL (3.4-5.0); Bilirubin Total 0.5 mg/dL (0.2-1.0); Magnesium 2.2 mg/dL (1.8-2.4); Potassium 3.8 mmol/L (3.5-5.1); Protein, Total 6.6 g/dL (6.4-8.2)
[2020-06-11] MEDS: METOPROLOL TAR 50 MG TAB PO SCH ×2 (08:36→21:07)
[2020-06-11] MEDS: CELECOXIB 100 MG CAPSULE PO SCH (08:36)
[2020-06-11] MEDS: lisinopriL 20 MG TAB PO SCH ×2 (08:38→21:07)
[2020-06-11] MEDS: ENOXAPARIN 30 MG/0.3 ML SQ SCH ×2 (08:38→21:06)
--- NOTE | 2020-06-11 19:37 | PN ---
Date of Progress Note: 06/11/2020 Subjective: The patient was seen this morning for followup. No new complaints or problems reported by the patient. No nausea or vomiting. Objective: Vital Signs: Reviewed. HEENT: Unremarkable. Lungs: Clear to auscultation. Heart: Sounds normal. Abdomen: Soft. Bowel sounds normal. No guarding, rigidity, tenderness, or distention. Extremities: No leg edema. Laboratory Data: White count 12.1, hemoglobin 12.8, platelets 273. Sodium 141, potassium 3.8, chlor anant 106, bicarb 30, BUN 25, creatinine 1, glucose 101. Liver function tests unremarkable. Urinalysi s negative. Impression: 1.Hypertension. 2.Hyperlipidemia. Plan: We will go ahead and continue current medication. Continue current antihypertensive medicatio n. DVT prophylaxis with Lovenox 30 mg subcutaneous injection every 12 hours. The patient's elevated WBC count from yesterday has improved significantly. There is no evidence of any infection and urin alysis is normal. There are no other clinical signs or symptoms of infection reported at this point. I will see him tomorrow for followup. DEANDRE/MODRocio Voice ID: [id number] Report ID: [id number]
[2020-06-12] MEDS: HYDROCODONE/APAP 7.5/325 MG TAB PO PRN ×3 (03:19→22:19)
[2020-06-12] MEDS: LEVOTHYROXINE SOD 0.112 MG TAB PO SCH (05:28)
[2020-06-12] MEDS: hydroCHLOROthiazide 12.5 MG CAP PO SCH (05:28)
[2020-06-12] MEDS: AMLODIPINE 10 MG TAB PO SCH (05:28)
--- NOTE | 2020-06-12 07:13 | P.PN ---
Subjective Date of Service: 06/11/20 Chief Complaint: s/p R TKA Subjective: Ambulating, Improving, Working w/ PT pain improving Physical Examination - Vital Signs Temperature: 98.4 F Blood Pressure: 165/95 Pulse: 76 Respirations: 18 Pulse Ox (%): 98 - Physical Exam General: Alert, In no apparent distress Musculoskeletal: Other (RLE: dressing c/d/i; +EHL/FHL/GSC/TA; sensation grossly intact distally) Assessment And Plan - Plan Danish is an 85 yo male s/p right TKA POD#2 -PT to mobilize WBAT RLE -lovenox for DVT prophylaxis; will d/c with Xarelto -likely d/c to inpatient rehab after insurance approval
[2020-06-12] MEDS: lisinopriL 20 MG TAB PO SCH ×2 (08:59→21:50)
[2020-06-12] MEDS: CELECOXIB 100 MG CAPSULE PO SCH (08:59)
[2020-06-12] MEDS: METOPROLOL TAR 50 MG TAB PO SCH ×2 (09:00→21:50)
[2020-06-12] MEDS: ENOXAPARIN 30 MG/0.3 ML SQ SCH ×2 (09:01→21:50)
--- NOTE | 2020-06-12 21:27 | P.PN ---
Subjective Date of Service: 06/12/20 Chief Complaint: s/p R TKA Subjective: Ambulating, Improving, Working w/ PT pain controlled Physical Examination - Vital Signs Temperature: 97.9 F Blood Pressure: 179/84 Pulse: 59 Respirations: 18 Pulse Ox (%): 95 - Physical Exam General: Alert, In no apparent distress Musculoskeletal: Other (RLE: dressing c/d/i; minimal swelling; +EHL/FHL/GSC/TA; sensation grossly intact distally) - Studies Microbiology Data (last 24 hrs): 06/10/20 08:26 Clean Catch Urine [place] Count - Final No growth. 06/10/20 08:26 Clean Catch Urine - Final No growth. Assessment And Plan - Plan Danish is an 85 yo male s/p right TKA POD#3 -PT to mobilize WBAT RLE -lovenox for DVT prophylaxis; will d/c with Xarelto -likely d/c to inpatient rehab; pending insurance approval
--- NOTE | 2020-06-12 22:24 | P.OP ---
Preoperative diagnosis: right knee osteoarthritis Postoperative diagnosis: same Primary procedure: right total knee arthroplasty Anesthesia: General Estimated blood loss: 20 cc Specimen: right knee bone remnants Findings: see dictation Operative Technique: Indication For Procedure: Danish is an 85 year-old male presenting to my clinic with signs, symptoms and x-ray findings consistent with a severe right knee osteoarthritis. I discussed with the patient at length risks and benefits associated with operative and nonoperative treatment. He had failed conservative treatment measures including corticosteroid and viscosupplementation injections. He expressed understanding and elected to proceed with operative treatment. Description Of Procedure: After informed consent was obtained, the patient was identified in the preoperative holding area. The right lower extremity was marked. The patient was then taken to the PACU where he underwent a right lower extremity adductor canal block performed by Anesthesia. He was then taken to the operating room, transferred to the operating table in supine fashion, and placed under general anesthesia. His right lower extremity was then prepped and draped in usual sterile fashion. A time-out was initiated. The correct patient and procedure were confirmed and identified. The patient did receive his preoperative prophylactic antibiotics. The right lower extremity was then exsanguinated and tourniquet was inflated to 300 mmHg. Approximately 15 cm longitudinal incision was made centered over the anterior aspect of the right knee. Dissection was then taken to the extensor mechanism and a medial parapatellar arthrotomy was performed. The patella was everted and dislocated laterally and the knee was flexed in the fat pad. Medial lateral meniscus and ACL were all excised exposing the distal femur. Excess hypertrophic synovium was also excised within the suprapatellar pouch. The patient had a CT of his ri t knee preoperatively for surgical planning and creation of cutting blocks. The cutting block was then placed over the distal femur and pins were then placed. The distal femoral cutting block was then placed over the pins. Knee joint was then used to ensure proper depth cut and the distal femur was then cut. The chamfer cutting guide was then placed over the distal end of the femur. Anterior, posterior cuts as well as anterior and posterior chamfer cuts were then made again confirming proper depth of the cut using an Caio wing. Excess bone remnants were then sent to pathology for further evaluation. Next, attention was taken to the proximal tibia. A tibial jig and tibial cutting block was then placed on proximal aspect of the right tibia and locked into position. Pins were then placed and alignment guide was then used to confirm proper alignment of the cut and then coronal and sagittal planes. Once this was confirmed, the cutting jig was placed over the pins and the proximal tibia was cut. Sizing trays were then selected and size 10 mm spacer was used and there was good overall balance in flexion and extension. Next, the trial implants were then placed using the size 10 standard CR femur and a size G tibia with a 10 mm poly. There was overall good range of motion and good stability Trial implants were then removed. The wound was then irrigated thoroughly with normal saline and the knee was then injected with 30 cc of 0.5% Marcaine with epinephrine both in the posterior capsule and mediallateral gutters as well as quadriceps tendon and periosteum. The tibia was then punched. The femur was drilled. The cement was then prepared on the back table. Cement was then placed first on the tibial surface followed by size G tibia. Excess cement was removed with [place] elevators. Size 10 standard CR femur was then placed on the distal femur after cement was placed on the distal femur. Excess cement was then removed and a size 10 mm trial poly was then placed. The knee was held in extension as the cement hardened. Undersurface of the patella was prepared debriding osteophytes using rongeurs as well as osteophytes had been debrided off the proximal tibia with rongeurs and osteotomes to aid with the medial tightness. Cement was placed on the undersurface of the patella after it was cut and a size 35 patella was placed. Once the cement was hardened, the knee was ranged, there was good overall stability both in flexion, extension and as well as stability with varus and valgus stresses. Trial poly was then removed and a size 10 mm MC poly was then placed and locked into position. The knee was then ranged again. There was good overall range of motion both for flexion and extension with good stability. The wound was then irrigated again thoroughly with normal saline using pulse lavage. Tourniquet was let down. Hemostasis was achieved using Bovie electrocautery. Extensor mechanism was then approximated using a #1 Vicryl bothin interrupted and running fashion. The fascia was then approximated using 0 Vicryl. Subcutaneous tissue was approximated with a 2-0 Vicryl. Skin was approximated using annmaire. Sterile dressings were applied. The patient was awakened and transferred back in stable condition Complications: None Implants: Biomet Pancho Persona 10 CR femur, G tibia, 35 patella, 10 mm MC poly Fluids & blood products: per anesthesia record; TT: 83 mins @ 300 mmHg Transferred to: Recovery Room Condition: Good
[2020-06-13] MEDS: HYDROCODONE/APAP 7.5/325 MG TAB PO PRN ×4 (02:14→22:43)
--- NOTE | 2020-06-13 03:51 | PN ---
Date of Progress Note: 06/12/2020 Subjective: The patient was seen this morning for followup. He was lying in bed, not in distress. Reports that he had a bowel movement with use of prune juice. Denies any abdominal pain, nausea, vom iting. His right knee pain is better. He is participating well with the physical therapy. No chest pain. No shortness of breath. Objective: Vital Signs: Reviewed. HEENT: Unremarkable. Lungs: Clear to auscultation. Heart: Normal. Abdomen: Soft. Bowel sounds normal. No guarding, rigidity, tenderness, or distention. Extremities: No leg edema. Impression: 1.Hypertension. 2.Coronary artery disease. 3.Hyperlipidemia. 4.Right knee arthroplasty. Plan: We will continue current anticoagulation therapy for DVT prophylaxis. Continue current home m edications and pain medications. The patient seems to be improving well. We are awaiting for [employer]'s approval for the patient to go to inpatient rehab as [employer]'s decision is st ill pending. DEANDRE/MODL Voice ID: [id number] Report ID: [id number]
[2020-06-13] MEDS: LEVOTHYROXINE SOD 0.112 MG TAB PO SCH (06:04)
[2020-06-13] MEDS: hydroCHLOROthiazide 12.5 MG CAP PO SCH (06:04)
[2020-06-13] MEDS: AMLODIPINE 10 MG TAB PO SCH (06:05)
[2020-06-13] MEDS: lisinopriL 20 MG TAB PO SCH ×2 (08:57→20:54)
[2020-06-13] MEDS: METOPROLOL TAR 50 MG TAB PO SCH ×2 (08:57→20:54)
[2020-06-13] MEDS: CELECOXIB 100 MG CAPSULE PO SCH (08:57)
[2020-06-13] MEDS: ENOXAPARIN 30 MG/0.3 ML SQ SCH ×2 (08:58→20:56)
--- NOTE | 2020-06-13 10:07 | PN ---
Date of Progress Note: 06/13/2020 Subjective: The patient was seen this morning for followup. No new complaints or problems reported by the patient. He was sitting at bedside. Had a bowel movement yesterday also. Denies any abdomin al pain, nausea, vomiting. His pain in his right knee is much better than what it was couple of days ago. Now, he grades his pain around on the pain scale 0-10 at 5 or 6/10. He is doing well with the physical therapy. This morning, he is complaining of some rash on the right side of the base of the neck and upper chest near clavicular area with some itching. Physical Examination: HEENT: Unremarkable. Lungs: Clear to auscultation. Heart: Sounds normal. Abdomen: Soft. Bowel sounds normal. No guarding, rigidity, tenderness, or distention. Extremities: No leg edema. Skin: Presence of pink maculopapular rash on the right side of the neck and upper chest, mostly arou nd clavicular area. No vesicles. Impression: 1.Dermatitis. 2.Hypertension. 3.Hyperlipidemia. 4.Osteoarthritis, multiple sites, status post right knee replacement. Plan: We will go ahead and continue current anticoagulation therapy for DVT prophylaxis. We will re peat blood work tomorrow morning. The patient had elevated white count, which would blame it as stre ss-induced leukocytosis. No evidence of any infection and edema, and white count was already improvi ng on the last blood work and we will follow up on it tomorrow. We will start him on Kenalog cream, apply topically 2 times a day to the rash area. We will see him tomorrow for followup. We are anuji uzair on insurance company's decision for approval for inpatient rehab. Continue current antihypertensive medications. DEANDRE/MODL Voice ID: [id number] Report ID: [id number]
[2020-06-13] MEDS: TRIAMCINOLONE 0.1% CREAM 15GM TOP SCH ×2 (10:24→20:55)
--- NOTE | 2020-06-13 20:26 | P.PN ---
Subjective Date of Service: 06/13/20 Chief Complaint: s/p R TKA Subjective: Ambulating, Improving, Working w/ PT pain improved Physical Examination - Vital Signs Temperature: 97.3 F Blood Pressure: 151/70 Pulse: 65 Respirations: 18 Pulse Ox (%): 96 - Physical Exam General: Alert, In no apparent distress Musculoskeletal: Other (RLE: dressing c/d/i; no significant swelling; +EHL/FHL/GSC/TA; sensation grossly intact distally) Assessment And Plan - Plan Danish is an 85 yo male s/p right TKA POD#4 -PT to mobilize WBAT RLE; continues to improve with PT; PT recommending inpatient rehabilitation as patient lives alone and is a fall risk -lovenox for DVT prophylaxis; will d/c with Xarelto -likely d/c to inpatient rehab; pending insurance approval
[2020-06-14] MEDS: HYDROCODONE/APAP 7.5/325 MG TAB PO PRN ×4 (03:56→21:19)
[2020-06-14 04:25] LABS: Absolute Lymphocytes (CBC) 1.7 K/uL (0.7-4.9); Basophils % 0.7 % (0-1.3); Hematocrit 37.1 % (39.6-49.0); MPV 8.6 fL (7.6-11.3); RBC Red Blood Cell Count 4.01 M/uL (4.33-5.43)
[2020-06-14 04:32] LABS: Magnesium 2.2 mg/dL (1.8-2.4); Potassium 4.3 mmol/L (3.5-5.1)
[2020-06-14] MEDS: AMLODIPINE 10 MG TAB PO SCH (05:57)
[2020-06-14] MEDS: LEVOTHYROXINE SOD 0.112 MG TAB PO SCH (05:57)
[2020-06-14] MEDS: hydroCHLOROthiazide 12.5 MG CAP PO SCH (05:58)
[2020-06-14] MEDS: lisinopriL 20 MG TAB PO SCH ×2 (08:31→21:12)
[2020-06-14] MEDS: TRIAMCINOLONE 0.1% CREAM 15GM TOP SCH ×2 (08:31→21:12)
[2020-06-14] MEDS: METOPROLOL TAR 50 MG TAB PO SCH ×2 (08:32→21:12)
[2020-06-14] MEDS: CELECOXIB 100 MG CAPSULE PO SCH (08:33)
[2020-06-14] MEDS: ENOXAPARIN 30 MG/0.3 ML SQ SCH ×2 (08:33→21:11)
[2020-06-14] MEDS ORDERED: GLYCOPYRROLATE 0.2 MG/ML SYR ONE (10:28)
[2020-06-14] MEDS ORDERED: NEOSTIGMINE 1 MG/ML -5 ML ONE (10:28)
[2020-06-14] MEDS ORDERED: KETOROLAC 30 MG/ML INJ ONE (10:28)
--- NOTE | 2020-06-14 22:28 | P.PN ---
Subjective Date of Service: 06/14/20 Chief Complaint: s/p R TKA Subjective: Ambulating, Improving, Working w/ PT pain improved Physical Examination - Vital Signs Temperature: 98.3 F Blood Pressure: 155/59 Pulse: 87 Respirations: 19 Pulse Ox (%): 96 - Physical Exam General: Alert, In no apparent distress Musculoskeletal: Other (RLE: dressing c/d/i; +EHL/FHL/GSC/TA; sensation grossly intact distally; no significant swelling) - Studies Laboratory Data (last 24 hrs) 06/14/20 03:44: Sodium 144, Potassium 4.3, BUN 33 H, Creatinine 1.07, Glucose 98, Magnesium 2.2 06/14/20 03:44: WBC 10.4 D, Hgb 12.8 L, Hct 37.1 L, Plt Count 281 Assessment And Plan - Plan Danish is an 85 yo male s/p right TKA POD#5 -PT to mobilize WBAT RLE; continues to improve with PT; patient denied inpatient rehabilitation by his insurance -await approval for transfer to [facility] for DVT prophylaxis; will d/c with Xarelto
[2020-06-15] MEDS: AMLODIPINE 10 MG TAB PO SCH (05:02)
[2020-06-15] MEDS: hydroCHLOROthiazide 12.5 MG CAP PO SCH (05:03)
[2020-06-15] MEDS: HYDROCODONE/APAP 7.5/325 MG TAB PO PRN ×5 (05:03→22:55)
[2020-06-15] MEDS: LEVOTHYROXINE SOD 0.112 MG TAB PO SCH (05:03)
--- NOTE | 2020-06-15 08:36 | PN ---
Date of Progress Note: 06/14/2020 Subjective: Patient was seen for followup in the morning. He denied any complaints. No abdominal pain, nausea, vomiting. Pain seems to be in good control with current medication. Objective: Vital Signs: Reviewed. HEENT: Examination unremarkable. Lungs: Clear to auscultation. Heart: Sounds normal. Abdomen: Soft. Bowel sounds normal. No guarding, rigidity, tenderness, or distention. Extremities: No leg edema. Laboratory Data: White count 10.4, hemoglobin 12.8, platelets 281. Sodium 144, potassium 4.3, chloride 107, bicarb 32, BUN 33, creatinine 1.07, glucose 98. Impression: 1. Hypertension. 2. Coronary artery disease. 3. Hyperlipidemia. 4. Osteoarthritis, multiple sites. 5. Status post right knee arthroplasty. Plan: We will continue current medications. Continue current antihypertensive medication. Blood pressure seems to be in good control and we will continue current anticoagulation therapy for DVT prophylaxis. DEANDRE/MODRocio Voice ID: [id number] Report ID: [id number] MILLIE
[2020-06-15] MEDS: CELECOXIB 100 MG CAPSULE PO SCH (09:00)
[2020-06-15] MEDS: TRIAMCINOLONE 0.1% CREAM 15GM TOP SCH ×2 (09:00→20:16)
[2020-06-15] MEDS: lisinopriL 20 MG TAB PO SCH ×2 (09:09→20:15)
[2020-06-15] MEDS: METOPROLOL TAR 50 MG TAB PO SCH ×2 (09:10→20:14)
[2020-06-15] MEDS: RIVAROXABAN 10 MG TABLET PO SCH (16:35)
--- NOTE | 2020-06-15 20:35 | PN ---
Date of Progress Note: 06/15/2020 Subjective: The patient was seen this morning for followup. No new complaints or problems reported by the patient. Denies any abdominal pain, nausea, or vomiting. He did not have bowel movement yest erday, so he is going to try to drink some prune juice, that works for him. Objective: Vital Signs: Reviewed. HEENT: Unremarkable. Lungs: Clear to auscultation. Heart: Sounds normal. Abdomen: Soft. Bowel sounds normal. No guarding, rigidity, tenderness, or distention. Extremities: No leg edema. Impression: 1.Hypertension. 2.Coronary artery disease. 3.Hyperlipidemia. 4.Right knee replacement. Plan: We will continue current pain medications. Continue DVT prophylaxis with Xarelto 10 mg daily in the evening time and discontinue Lovenox. Social Service is trying to make arrangements for the p atient to go to nursing home facility as the patient is trying to decline inpatient rehab benefit. DEANDRE/MODL Voice ID: [id number] Report ID: [id number]
--- NOTE | 2020-06-15 22:33 | P.PN ---
Subjective Date of Service: 06/15/20 Chief Complaint: s/p R TKA Subjective: Ambulating, Improving, Working w/ PT pain improved Physical Examination - Vital Signs Temperature: 97.8 F Blood Pressure: 133/61 Pulse: 66 Respirations: 19 Pulse Ox (%): 96 - Physical Exam General: Alert, In no apparent distress Musculoskeletal: Other (RLE: dressing c/d/i; +EHL/FHL/GSC/TA; sensation grossly intact distally) Assessment And Plan - Plan Danish is an 85 yo male s/p right TKA POD#6 -PT to mobilize WBAT RLE; continues to improve with PT; patient denied inpatient rehabilitation by his insurance -await approval for transfer to [facility] for DVT prophylaxis; will d/c with Xarelto
[2020-06-16] MEDS: HYDROCODONE/APAP 7.5/325 MG TAB PO PRN ×5 (05:13→21:43)
[2020-06-16] MEDS: LEVOTHYROXINE SOD 0.112 MG TAB PO SCH (05:13)
[2020-06-16] MEDS: AMLODIPINE 10 MG TAB PO SCH (05:13)
[2020-06-16] MEDS: hydroCHLOROthiazide 12.5 MG CAP PO SCH (05:13)
[2020-06-16] MEDS: CELECOXIB 100 MG CAPSULE PO SCH (09:00)
[2020-06-16] MEDS: TRIAMCINOLONE 0.1% CREAM 15GM TOP SCH ×2 (09:00→21:00)
[2020-06-16] MEDS: METOPROLOL TAR 50 MG TAB PO SCH ×2 (09:28→21:38)
[2020-06-16] MEDS: lisinopriL 20 MG TAB PO SCH ×2 (09:29→21:38)
[2020-06-16] MEDS: RIVAROXABAN 10 MG TABLET PO SCH (16:36)
--- NOTE | 2020-06-16 21:04 | P.PN ---
Subjective Date of Service: 06/16/20 Chief Complaint: s/p R TKA Subjective: Ambulating, Improving, Working w/ PT progressing well Physical Examination - Vital Signs Temperature: 98.9 F Blood Pressure: 145/61 Pulse: 56 Respirations: 18 Pulse Ox (%): 96 - Physical Exam General: Alert, In no apparent distress Musculoskeletal: Other (RLE: dressing c/d/i; +EHL/FHL/GSC/TA; no swelling; NVI distally) Assessment And Plan - Plan Danish is an 85 yo male s/p right TKA POD#7 -PT to mobilize WBAT RLE; continues to improve with PT; patient denied inpatient rehabilitation by his insurance; awaiting appeal -lovenox for DVT prophylaxis; will d/c with Xarelto
[2020-06-17] MEDS: AMLODIPINE 10 MG TAB PO SCH (05:35)
[2020-06-17] MEDS: hydroCHLOROthiazide 12.5 MG CAP PO SCH (05:35)
[2020-06-17] MEDS: LEVOTHYROXINE SOD 0.112 MG TAB PO SCH (05:35)
--- NOTE | 2020-06-17 07:14 | PN ---
Date of Progress Note: 06/16/2020 Subjective: Patient was seen this morning for followup. No new complaints or problems reported by patient. Lying in bed, not in distress. Objective: Vital Signs: Reviewed. HEENT: Unremarkable. Lungs: Clear to auscultation. Heart: Sounds normal. Abdomen: Soft. Bowel sounds normal. No guarding, rigidity, tenderness, or distention. Extremities: No leg edema. Impression: 1. Hypertension. 2. Coronary artery disease. 3. Hyperlipidemia. 4. Osteoarthritis, multiple sites, status post right knee replacement. 5. Constipation, controlled. Plan: We will continue current pain medications and we are waiting on disposition. Social Service and Rehab Floor working with the patient's insurance company regarding approval process and denial. DEANDRE/MODL Voice ID: [id number] Report ID: [id number] MTDD
[2020-06-17] MEDS: TRIAMCINOLONE 0.1% CREAM 15GM TOP SCH ×2 (09:00→21:00)
[2020-06-17] MEDS: METOPROLOL TAR 50 MG TAB PO SCH ×2 (09:01→21:46)
[2020-06-17] MEDS: lisinopriL 20 MG TAB PO SCH ×2 (09:02→21:47)
[2020-06-17] MEDS: HYDROCODONE/APAP 7.5/325 MG TAB PO PRN ×3 (09:03→21:47)
--- NOTE | 2020-06-17 13:16 | P.PN ---
Subjective Date of Service: 06/17/20 Chief Complaint: s/p R TKA Subjective: Ambulating, Improving, Working w/ PT progressing well Physical Examination - Vital Signs Temperature: 97.4 F Blood Pressure: 168/77 Pulse: 65 Respirations: 18 Pulse Ox (%): 94 - Physical Exam General: Alert Musculoskeletal: Other (RLE: dressing c/d/i; +EHL/FHL/GSC/TA; sensation grossly intact distally) Assessment And Plan - Plan Danish is an 85 yo male s/p right TKA POD#8 -PT to mobilize WBAT RLE; continues to improve with PT; patient denied inpatient rehabilitation by his insurance; awaiting [facility]; will d/c with Xarelto -will change dressing today
[2020-06-17] MEDS: RIVAROXABAN 10 MG TABLET PO SCH (16:12)
[2020-06-18] MEDS: hydroCHLOROthiazide 12.5 MG CAP PO SCH (06:28)
[2020-06-18] MEDS: AMLODIPINE 10 MG TAB PO SCH (06:28)
[2020-06-18] MEDS: LEVOTHYROXINE SOD 0.112 MG TAB PO SCH (06:28)
--- NOTE | 2020-06-18 07:21 | PN ---
Date of Progress Note: 06/17/2020 Subjective: Patient was seen for followup this morning. No new complaints or problems reported by patient. He was lying in bed, not in any distress. Denies any abdominal pain, nausea, vomiting. No chest pain, no shortness of breath. Pain in his right knee seems to be well controlled. Objective: Vital Signs: Reviewed. HEENT: Unremarkable. Lungs: Clear to auscultation. Heart: Sounds normal. Abdomen: Soft. Bowel sounds normal. No guarding, rigidity, tenderness, or distention. Extremities: No leg edema. Impression: 1. Hypertension. 2. Hyperlipidemia. 3. Osteoarthritis, multiple sites. 4. Constipation. Plan: Patient is doing well with physical therapy and pain is under good control. We will continue current DVT prophylaxis using Eliquis and continue current antihypertensive medications. Rehab is working with [employer] on his appeal. I will see him tomorrow for followup. DEANDRE/BLAISE Voice ID: [id number] Report ID: [id number] MILLIE
[2020-06-18] MEDS: TRIAMCINOLONE 0.1% CREAM 15GM TOP SCH ×2 (09:00→21:40)
[2020-06-18] MEDS: HYDROCODONE/APAP 7.5/325 MG TAB PO PRN ×2 (09:05→16:47)
[2020-06-18] MEDS: CETIRIZINE HCL 5 MG TABLET PO SCH (09:05)
[2020-06-18] MEDS: METOPROLOL TAR 50 MG TAB PO SCH ×2 (09:06→21:33)
[2020-06-18] MEDS: lisinopriL 20 MG TAB PO SCH ×2 (09:06→21:35)
--- NOTE | 2020-06-18 11:15 | P.PN ---
Subjective Date of Service: 06/18/20 Chief Complaint: s/p R TKA Subjective: Ambulating, Improving, Working w/ PT progressing well Physical Examination - Vital Signs Temperature: 97.2 F Blood Pressure: 184/79 Pulse: 55 Respirations: 16 Pulse Ox (%): 97 - Physical Exam General: Alert, In no apparent distress Musculoskeletal: Other (RLE: dressing c/d/i; no significant swelling; +EHL/FHL/GSC/TA; sensation grossly intact distally) Assessment And Plan - Plan Danish is an 85 yo male s/p right TKA POD#9 -PT to mobilize WBAT RLE; continues to improve with PT; patient denied inpatient rehabilitation by his insurance; awaiting [facility]; will d/c with Xarelto
[2020-06-18] MEDS: RIVAROXABAN 10 MG TABLET PO SCH (16:29)
--- NOTE | 2020-06-18 20:00 | PN ---
Date of Progress Note: 06/18/2020 Subjective: patient was seen this morning for followup. No new complaints problems reported by naeem ent. Lying in bed, not in any distress. Denies any abdominal pain, nausea, vomiting. No chest pain , no shortness of breath. Objective: Vital Signs: Reviewed. HEENT: Unremarkable. Lungs: Clear to auscultation. Heart: Sounds normal. Abdomen: Soft. Bowel sounds normal. No guarding, rigidity, tenderness, distention. Extremities: No leg edema. Impression: 1.Hypertension. 2.Coronary artery disease. 3.Hyperlipidemia. 4.Constipation. Plan: We will go ahead and continue current Eliquis for DVT prophylaxis. Continue current antihyper tensive medication. Continue current pain medication. 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 We will continue that, and we are waiting on disposition. DEANDRE/BLAISE Voice ID: [id number] Report ID: [id number]
[2020-06-19] MEDS: HYDROCODONE/APAP 7.5/325 MG TAB PO PRN ×4 (00:07→19:57)
[2020-06-19] MEDS ORDERED: HYDROCODONE/APAP 7.5/325 MG TAB ONE (00:18)
[2020-06-19] MEDS: AMLODIPINE 10 MG TAB PO SCH (05:29)
[2020-06-19] MEDS: hydroCHLOROthiazide 12.5 MG CAP PO SCH (05:30)
[2020-06-19] MEDS: LEVOTHYROXINE SOD 0.112 MG TAB PO SCH (05:30)
[2020-06-19] MEDS: METOPROLOL TAR 50 MG TAB PO SCH ×2 (08:55→19:56)
[2020-06-19] MEDS: lisinopriL 20 MG TAB PO SCH ×2 (08:56→19:57)
[2020-06-19] MEDS: TRIAMCINOLONE 0.1% CREAM 15GM TOP SCH ×2 (08:57→19:59)
[2020-06-19] MEDS: CETIRIZINE HCL 5 MG TABLET PO SCH (08:57)
--- NOTE | 2020-06-19 10:46 | PN ---
Date of Progress Note: 06/19/2020 Subjective: Patient was seen this morning for followup. He was sitting. Denied any complaints. No new problems reported by him. Objective: Vital Signs: Reviewed. HEENT: Unremarkable. Lungs: Clear to auscultation. Heart: Sounds normal. Abdomen: Soft. Bowel sounds normal. No guarding, rigidity, tenderness, or distention. Extremities: No leg edema. Impression: 1.Hypertension. 2.Coronary artery disease. 3.Hyperlipidemia. 4.Constipation. 5.Osteoarthritis, status post right knee replacement. Plan: We will go ahead and continue current Zyrtec. Patient's itching and a small area of rash on t he back is actually better with topical cream as well as antihistamine use. We will continue current antihypertensive medication. Continue DVT prophylaxis. Physical Therapy to continue to work with cornelia gray. DEANDRE/BLAISE Voice ID: [id number] Report ID: [id number]
[2020-06-19] MEDS: RIVAROXABAN 10 MG TABLET PO SCH (16:19)
--- NOTE | 2020-06-19 23:06 | P.PN ---
Subjective Date of Service: 06/19/20 Chief Complaint: s/p R TKA Subjective: Ambulating, Improving, Working w/ PT progressing well Physical Examination - Vital Signs Temperature: 96.5 F Blood Pressure: 141/62 Pulse: 62 Respirations: 18 Pulse Ox (%): 96 - Physical Exam General: Alert, In no apparent distress Musculoskeletal: Other (RLE: dressing c/d/i; EHL/FHL/GSC/TA; sensation grossly intact distally; no significant swelling) Assessment And Plan - Plan Danish is an 85 yo male s/p right TKA POD#10 -PT to mobilize WBAT RLE; continues to improve with PT; patient denied inpatient rehabilitation by his insurance; awaiting appeal -Xarlto for DVT prophylaxis
[2020-06-20] MEDS: HYDROCODONE/APAP 7.5/325 MG TAB PO PRN ×4 (01:56→21:03)
[2020-06-20] MEDS: AMLODIPINE 10 MG TAB PO SCH (05:02)
[2020-06-20] MEDS: LEVOTHYROXINE SOD 0.112 MG TAB PO SCH (05:03)
[2020-06-20] MEDS: hydroCHLOROthiazide 12.5 MG CAP PO SCH (05:03)
[2020-06-20] MEDS: METOPROLOL TAR 50 MG TAB PO SCH ×2 (09:05→20:57)
[2020-06-20] MEDS: CETIRIZINE HCL 5 MG TABLET PO SCH (09:06)
[2020-06-20] MEDS: lisinopriL 20 MG TAB PO SCH ×2 (09:06→20:58)
[2020-06-20] MEDS: TRIAMCINOLONE 0.1% CREAM 15GM TOP SCH ×2 (09:08→21:00)
--- NOTE | 2020-06-20 10:47 | PN ---
Date of Progress Note: 06/20/2020 Subjective: Patient was seen this morning for followup. His itching from the back has improved with use of antihistamine and topical cream. Had little more pain this morning in the knee compared to y day. He is well controlled with medication. No abdominal pain, nausea, vomiting. Objective: Vital Signs: Reviewed. HEENT: Unremarkable. Lungs: Clear to auscultation. Heart: Sounds normal. Abdomen: Soft. Bowel sounds normal. No guarding, rigidity, tenderness, or distention. Extremities: No leg edema. Impression: 1.Hypertension. 2.Coronary artery disease. 3.Hyperlipidemia. 4.Osteoarthritis, status post surgery. Plan: We will go ahead and continue current antihypertensive medication and DVT prophylaxis. We terrie l repeat blood work. Continue Zyrtec and topical cream to his back area for contact dermatitis. DEANDRE/MODL Voice ID: [id number] Report ID: [id number]
[2020-06-20] MEDS: RIVAROXABAN 10 MG TABLET PO SCH (16:22)
[2020-06-21] MEDS: HYDROCODONE/APAP 7.5/325 MG TAB PO PRN ×4 (01:00→21:32)
[2020-06-21] MEDS: hydroCHLOROthiazide 12.5 MG CAP PO SCH (04:58)
[2020-06-21] MEDS: LEVOTHYROXINE SOD 0.112 MG TAB PO SCH (04:58)
[2020-06-21] MEDS: AMLODIPINE 10 MG TAB PO SCH (04:58)
[2020-06-21 05:37] LABS: Magnesium 2.4 mg/dL (1.8-2.4); Potassium 4.1 mmol/L (3.5-5.1)
[2020-06-21 05:42] LABS: Absolute Lymphocytes (CBC) 1.6 K/uL (0.7-4.9); Basophils % 1.1 % (0-1.3); Hematocrit 34.2 % (39.6-49.0); Lymphocytes % 17.1 % (15.3-44.8); MPV 8.1 fL (7.6-11.3); RBC Red Blood Cell Count 3.75 M/uL (4.33-5.43)
[2020-06-21] MEDS: lisinopriL 20 MG TAB PO SCH ×2 (07:37→21:27)
[2020-06-21] MEDS: METOPROLOL TAR 50 MG TAB PO SCH ×2 (07:37→21:28)
[2020-06-21] MEDS: CETIRIZINE HCL 5 MG TABLET PO SCH (07:39)
[2020-06-21] MEDS: TRIAMCINOLONE 0.1% CREAM 15GM TOP SCH ×2 (07:39→21:00)
--- NOTE | 2020-06-21 13:41 | P.PN ---
Subjective Date of Service: 06/20/20 Chief Complaint: s/p R TKA Subjective: No C/O voiced, Ambulating, Working w/ PT progressing well Physical Examination - Vital Signs Temperature: 98 F Blood Pressure: 127/60 Pulse: 52 Respirations: 17 Pulse Ox (%): 97 - Physical Exam General: Alert, In no apparent distress Musculoskeletal: Other (RLE: dressing c/d/i; +EHL/FHL/GSC/TA; sensation grossly intact distally) - Studies Laboratory Data (last 24 hrs) 06/21/20 05:05: Sodium 140, Potassium 4.1, BUN 31 H, Creatinine 1.04, Glucose 86, Magnesium 2.4 06/21/20 05:05: WBC 9.6, Hgb 12.0 L, Hct 34.2 L, Plt Count 365 D Assessment And Plan - Plan Danish is an 85 yo male s/p right TKA POD#11 -PT to mobilize WBAT RLE; continues to improve with PT; patient denied inpatient rehabilitation by his insurance; awaiting appeal -Xarelto for DVT prophylaxis
[2020-06-21] MEDS: RIVAROXABAN 10 MG TABLET PO SCH (16:23)
[2020-06-21 20:51] VITALS: O2SAT 96
[2020-06-22] MEDS: HYDROCODONE/APAP 7.5/325 MG TAB PO PRN ×3 (05:03→13:22)
[2020-06-22] MEDS: AMLODIPINE 10 MG TAB PO SCH (05:04)
[2020-06-22] MEDS: LEVOTHYROXINE SOD 0.112 MG TAB PO SCH (05:05)
[2020-06-22] MEDS: hydroCHLOROthiazide 12.5 MG CAP PO SCH (05:05)
--- NOTE | 2020-06-22 06:25 | PN ---
Date of Progress Note: 06/21/2020 Subjective: Patient was seen this morning for followup. He was feeling much better this morning. D enied any complaints, no abdominal pain, nausea, vomiting. Had a bowel movement yesterday. No chest pain, no shortness of breath. Objective: Vital Signs: Reviewed. HEENT: Unremarkable. Lungs: Clear to auscultation. Heart: Sounds normal. Abdomen: Soft. Bowel sounds normal. No guarding, rigidity, tenderness, or distention. Extremities: No leg edema. Laboratory Data: White count 9.6, hemoglobin 12, and a platelet count of 365. Sodium 140, potassium 4.1, chloride 106, bicarb 31, BUN 31, creatinine 1.04, glucose 86, magnesium 2.4. Impression: 1.Hypertension. 2.Hyperlipidemia. 3.Constipation. 4.Osteoarthritis, status post right knee replacement. Plan: We will go ahead and continue current medications, continue current anticoagulation therapy fo r DVT prophylaxis and antihypertensive medication. I did call and talk to Dr. Mohan and informed him that from medical point of view, he can discharge patient whenever he is ready for discharge, which m ay happen today or tomorrow as patient was describing it to me. The patient was advised that upon di scharge, he should continue all his home medication as he was taking before except only change is asp irin 81 mg, he was taking 1 tablet daily. Instead of that he should take 2 tablets daily, and he shabnam uld follow with Dr. Mohan per his instruction and follow up at my office per his appointment. DEANDRE/MODL Voice ID: [id number] Report ID: [id number]
[2020-06-22] MEDS: TRIAMCINOLONE 0.1% CREAM 15GM TOP SCH (09:00)
[2020-06-22] MEDS: CETIRIZINE HCL 5 MG TABLET PO SCH (09:48)
[2020-06-22] MEDS: METOPROLOL TAR 50 MG TAB PO SCH (09:49)
[2020-06-22] MEDS: lisinopriL 20 MG TAB PO SCH (09:49)
[2020-06-22 12:37] VITALS: BP 106/54; TEMP 97.4
--- NOTE | 2020-06-22 14:24 | P.PN ---
Subjective Date of Service: 06/22/20 Chief Complaint: s/p R TKA Subjective: Ambulating, Improving, Working w/ PT progressing well Physical Examination - Vital Signs Temperature: 97.4 F Blood Pressure: 106/54 Pulse: 48 Respirations: 18 Pulse Ox (%): 95 - Physical Exam General: Alert, In no apparent distress Musculoskeletal: Other (RLE: incision well healed; no erythema or drainage; NVI distally) Assessment And Plan - Plan Danish is an 85 yo male s/p right TKA POD#12 -annmarie removed without complication -PT to mobilize WBAT RLE; continues to improve with PT; patient denied inpatient rehabilitation by his insurance; awaiting appeal -Xarelto for DVT prophylaxis; will d/c on aspirin
--- NOTE | 2020-06-22 20:58 | PN ---
Date of Progress Note: 06/22/2020 Subjective: The patient was seen this morning for followup, lying in bed, not in distress. No new c omplaints or problems reported by the patient. Objective: HEENT: Unremarkable. Lungs: Clear to auscultation. Heart: Sounds normal. Abdomen: Soft. Bowel sounds normal. No guarding, rigidity, tenderness, or distention. Extremities: No leg edema. Impression: 1.Hypertension. 2.Hyperlipidemia. 3.Coronary artery disease. 4.Osteoarthritis, multiple sites. Plan: The patient informed me this morning that he does not want to go to inpatient rehab. He would like to go home and rehab decision. As far as insurance company's consent, we do not have any answe r from insurance [employer] anywhere, but the patient this morning tells me that he wants to go home wit h home health and home physical therapy. Nurse was advised to contact his Orthopedic surgeon, Dr. Winifred bergman, to inform him of the patient's decision, medical state. The patient is stable for discharge and he was advised to continue all his previous home medications including his aspirin 81 mg, but to take 2 tablets daily instead of 1 tablet daily. DEANDRE/MODL Voice ID: [id number] Report ID: [id number]
--- NOTE | 2020-06-23 08:46 | P.DS ---
Admission Date: 06/09/20 Discharge Date: 06/22/20 Disposition: DC HOME/HOME HEALTH CARE Discharge Condition: GOOD Reason for Admission: s/p R TKA Consultations: Dr. Josue Blanco Procedures: right total kne arthroplasty 06/09/2020 Brief History of Present Illness: Danish is an 85 yo male s/p R TKA on 06/09/2020 and admitted to the floor in stable condition. Hospital Course: Danish underwent R TKA on 06/09/2020 without complication. He was admitted to the floor in stable condition. Dr. Blanco was admitted for medical management. Physical therapy was consulted to aid with mobilization. His vital signs remained stable during his hospital stay. He was started on lovenox and transitioned to Xarelto for DVT prophylaxis. He lives at home alone and a c onsult was place for inpatient rehabilitation. The IPR was denied and an appeal was placed. The appeal was denied on 06/22/2020. He was participating in physical therapy during this wait and improved with his independence and mobility. He was discharged on 06/23/2020 in stable condition. He will followup in my clinic in 2 weeks for reevaluation. Vital Signs/Physical Exam: Temp Pulse Resp BP Pulse Ox 97.4 F 48 L 18 106/54 L 95 06/22/20 14:24 06/22/20 14:24 06/22/20 14:24 06/22/20 14:24 06/22/20 14:24 Laboratory Data at Discharge: WBC 9.6 K/uL (4.3-10.9) 06/21/20 05:05 Hgb 12.0 g/dL (13.6-17.9) L 06/21/20 05:05 Hct 34.2 % (39.6-49.0) L 06/21/20 05:05 Plt Count 365 K/uL (152-406) D 06/21/20 05:05 PT 11.6 SECONDS (9.5-12.5) 06/03/20 10:44 INR 0.98 06/03/20 10:44 APTT 43.3 SECONDS (24.3-36.9) H 06/03/20 10:44 Sodium 140 mmol/L (136-145) 06/21/20 05:05 Potassium 4.1 mmol/L (3.5-5.1) 06/21/20 05:05 BUN 31 mg/dL (7-18) H 06/21/20 05:05 Creatinine 1.04 mg/dL (0.55-1.3) 06/21/20 05:05 Glucose 86 mg/dL (74-106) 06/21/20 05:05 Magnesium 2.4 mg/dL (1.8-2.4) 06/21/20 05:05 Total Bilirubin 0.5 mg/dL (0.2-1.0) 06/11/20 05:49 AST 19 U/L (15-37) 06/11/20 05:49 ALT 15 U/L (12-78) 06/11/20 05:49 Alkaline Phosphatase 67 U/L (45-117) 06/11/20 05:49 Home Medications: Amlodipine [Norvasc*] 10 mg PO [id number] 02/17/13 Levothyroxine [Synthroid*] 112 mcg PO [id number] 02/17/13 lisinopriL [Prinivil*] 20 mg PO BID 02/17/13 Metoprolol Tartrate [Lopressor*] 75 mg PO BID 05/29/18 hydroCHLOROthiazide [Hydrochlorothiazide] 12.5 mg PO [id number] 05/29/18 Aspirin 81 mg PO DAILY 06/03/20 Hydrocodone 7.5/APAP 325 [[place] 7.5/325 mg*] 1 tab PO Q4H PRN tab 06/22/20 Patient Discharge Instructions: mobilize with HHPT; f/u with Dr. Mohan in 2 weeks; may get knee wet in shower; no baths or soaking of knee Diet: Regular Activity: Weight bearing as tolerated Followup: Josue Blanco MD [ACTIVE - CAN ADMIT] - Leonel Mohan MD [ACTIVE - CAN ADMIT] -
== END 2020-06-22 13:27 | disposition home health service (06) | DRG 470 ==
LOC: OR 05:53 → 2ND 10:53
PROVIDERS: ADMIT Orthopaedic Surgery Sports Medicine; ATTEND Orthopaedic Surgery Sports Medicine
PROC: 0SRC0J9 Replacement of Right Knee Joint with Synthetic Substitute, Cemented, Open Approach (ICD-10-PCS; principal; 2020-06-09 07:30)
DX: M17.11 Unilateral primary osteoarthritis, right knee (principal); I10 Essential (primary) hypertension; E78.2 Mixed hyperlipidemia; N40.0 Benign prostatic hyperplasia without lower urinary tract symptoms; E03.9 Hypothyroidism, unspecified; K59.00 Constipation, unspecified; L30.9 Dermatitis, unspecified; I25.10 Atherosclerotic heart disease of native coronary artery without angina pectoris; I65.29 Occlusion and stenosis of unspecified carotid artery; D72.829 Elevated white blood cell count, unspecified; Z79.82 Long term (current) use of aspirin; Z79.890 Hormone replacement therapy; Z79.899 Other long term (current) drug therapy; Z79.891 Long term (current) use of opiate analgesic; Z60.2 Problems related to living alone; Z95.0 Presence of cardiac pacemaker; Z95.5 Presence of coronary angioplasty implant and graft; Z88.5 Allergy status to narcotic agent; Z88.8 Allergy status to other drugs, medicaments and biological substances; Z20.828 Contact with and (suspected) exposure to other viral communicable diseases
CPT/HCPCS: 36415; 71046; 80048; 80053; 81001; 83735; 85014; 85018; 85025; 85610; 85730; 87086; 87088; 88304; 88305; 88311; 93005; 94010; 94760; 97110; 97112; 97116; 97139; 97161; 97530; J0690; J1100; J1170; J1650; J2250; J2405; J2704; J2710; J3010; J7120; U0002

== ENCOUNTER 2022-03-29 11:50 | Day surgery (SDC) | payer OTHER ==
[2022-03-29] MEDS ORDERED: Ringers Lactate 1,000 ML IV ONE (12:32)
[2022-03-29] MEDS ORDERED: LIDOCAINE 1% MPF 5 ML VIAL ONE (14:05)
[2022-03-29] MEDS ORDERED: propofoL 200 MG/20 ML VIAL IV ONE ×2 (14:05→14:52)
[2022-03-29] MEDS ORDERED: NS 0.9% VIAL 10 ML ONE (14:57)
[2022-03-29] MEDS ORDERED: Phenylephrine HCl 10 MG/ML 1 ML VIAL ONE (14:57)
--- NOTE | 2022-03-29 15:26 | ENDO RPT ---
[address], [address] COLONOSCOPY PROCEDURE REPORT EXAM DATE: 03/29/2022 PATIENT NAME: Danish Lock MR #: [id number] BIRTHDATE: 1935 ATTENDING: Harinder Yepez Dr STATUS: outpatient NIGHT TIME NANNY: Juliann Nunez RN, Lani NEGRON, and Marivel Cardona CST INDICATIONS: The patient is a 87 yr old Male here for a colonoscopy due to hematochezia, personal history of colon polyps, and family history of colon cancer - brother PROCEDURE PERFORMED: Colonoscopy with snare polypectomy and Colon w/ endoclip MEDICATIONS: Per Anesthesia. ESTIMATED BLOOD LOSS: None CONSENT: The patient understands the risks and benefits of the procedure and understands that these risks include, but are not limited to: sedation, allergic reaction, infection, perforation and/or bleeding. Alternative means of evaluation and treatment include, among others: physical exam, x-rays, and/or surgical intervention. The patient elects to proceed with this endoscopic procedure. DESCRIPTION OF PROCEDURE: During intra-op preparation period all mechanical medical equipment was checked for proper function. Hand hygiene and appropriate measures for infection prevention was taken. Procedure, possible complications, alternatives including, but not limited to possibility of bleeding, perforation, tear, infection, sepsis, need for surgery, need for blood transfusion, were explained to the patient. After the risks, benefits and alternatives of the procedure were thoroughly explained, Informed consent was verified, confirmed and timeout was successfully executed by the treatment team. The patient was placed in the left lateral position. A digital rectal exam was performed and revealed an enlarged prostate. After appropriate level of anesthesia, the scope was passed. The EC-[id number] ([id number]) endoscope was introduced through the anus and advanced to the cecum, which was identified by both the appendix and ileocecal valve. The quality of the prep was fair. The instrument was then slowly withdrawn as the colon was fully examined. Scope withdrawal time was 15 minutes. COLON FINDINGS: A smooth sessile polyp measuring 7 mm in size was found at the cecum. A polypectomy was performed with a cold snare. Two smooth flat polyps ranging between 5-9mm in size were found at the ileocecal valve. A polypectomy was performed with a cold snare. Seven smooth sessile polyps measuring 3-10 mm mm in size were found in the ascending colon. A polypectomy was performed using snare cautery. Bleeding at the site was controlled using hemoclips. One (1) placement was made. Three smooth sessile polyps ranging between 3-7mm in size were found in the transverse colon. A polypectomy was performed using snare cautery. Bleeding at the site was controlled. One (1) placement was made. There was no blood loss from the maneuver. A smooth pedunculated polyp measuring 1 cm in size was found in the rectum. A polypectomy was performed using snare cautery. A smooth sessile polyp measuring 1.5 cm in size was found in the anal canal. Retroflexed views revealed no abnormalities and Retroflexed views revealed medium hemorrhoids. The scope was then completely withdrawn from the patient and the procedure terminated. ADVERSE EVENTS: There were no complications. IMPRESSIONS: 1. 7 mm sessile polyp at the cecum; polypectomy was performed with a cold snare 2. Two flat polyps ranging between 5-9mm in size at the ileocecal valve; polypectomy was performed with a cold snare 3. Seven sessile polyps measuring 3-10 mm mm in size in the ascending colon; site was controlled using hemoclip X1 4. Three sessile polyps ranging between 3-7mm in size were found in the bleeding at the site was controlled by using hemoclip X1 5. Pedunculated polyp measuring 1 cm in size was found in the rectum; polypectomy was performed using snare cautery 6. Sessile polyp measuring 1.5 cm in size in the anal canal on a hemorrhoid - not resected 7. Intubation to terminal ileum RECOMMENDATIONS: 1. await biopsy results 2. avoid NSAIDS for 2 weeks 3. surgery consult for 1.5 cm sessile polyp in anal canal on hemorrhoid RECALL: Return in 2 month(s) for Colonoscopy. Harinder Yepez Dr eSigned: Harinder Yepez Dr 03/29/2022 3:25 PM cc: Josue Blanco CPT CODES: ICD9 CODES: PATIENT NAME: Danish Lock MR#: [id number]
--- NOTE | 2022-03-29 15:28 | ENDO RPT ---
[address], [address] COLONOSCOPY PROCEDURE REPORT EXAM DATE: 03/29/2022 PATIENT NAME: Danish Lock MR #: [id number] BIRTHDATE: 1935 ATTENDING: Harinder Yepez Dr STATUS: outpatient ADMINISTRATIVE OFFICER: Juliann Nunez RN, Lani NEGRON, and Marivel Cardona CST INDICATIONS: The patient is a 87 yr old Male here for a colonoscopy due to hematochezia, personal history of colon polyps, and family history of colon cancer - brother PROCEDURE PERFORMED: Colonoscopy with snare polypectomy and Colon w/ endoclip MEDICATIONS: Per Anesthesia. ESTIMATED BLOOD LOSS: None CONSENT: The patient understands the risks and benefits of the procedure and understands that these risks include, but are not limited to: sedation, allergic reaction, infection, perforation and/or bleeding. Alternative means of evaluation and treatment include, among others: physical exam, x-rays, and/or surgical intervention. The patient elects to proceed with this endoscopic procedure. DESCRIPTION OF PROCEDURE: During intra-op preparation period all mechanical medical equipment was checked for proper function. Hand hygiene and appropriate measures for infection prevention was taken. Procedure, possible complications, alternatives including, but not limited to possibility of bleeding, perforation, tear, infection, sepsis, need for surgery, need for blood transfusion, were explained to the patient. After the risks, benefits and alternatives of the procedure were thoroughly explained, Informed consent was verified, confirmed and timeout was successfully executed by the treatment team. The patient was placed in the left lateral position. A digital rectal exam was performed and revealed an enlarged prostate. After appropriate level of anesthesia, the scope was passed. The EC-3890Li ([id number]) endoscope was introduced through the anus and advanced to the cecum, which was identified by both the appendix and ileocecal valve. The quality of the prep was fair. The instrument was then slowly withdrawn as the colon was fully examined. Scope withdrawal time was 15 minutes. COLON FINDINGS: A smooth sessile polyp measuring 7 mm in size was found at the cecum. A polypectomy was performed with a cold snare. Two smooth flat polyps ranging between 5-9mm in size were found at the ileocecal valve. A polypectomy was performed with a cold snare. Seven smooth sessile polyps measuring 3-10 mm mm in size were found in the ascending colon. A polypectomy was performed using snare cautery. Bleeding at the site was controlled using hemoclips. One (1) placement was made. Three smooth sessile polyps ranging between 3-7mm in size were found in the transverse colon. A polypectomy was performed using snare cautery. Bleeding at the site was controlled. One (1) placement was made. There was no blood loss from the maneuver. A smooth pedunculated polyp measuring 1 cm in size was found in the rectum. A polypectomy was performed using snare cautery. A smooth sessile polyp measuring 1.5 cm in size was found in the anal canal. Mild diverticulosis in the sigmoid colon. Retroflexed views revealed medium hemorrhoids and polyps. and Retroflexed views revealed medium hemorrhoids. The scope was then completely withdrawn from the patient and the procedure terminated. ADVERSE EVENTS: There were no complications. IMPRESSIONS: 1. 7 mm sessile polyp at the cecum; polypectomy was performed with a cold snare 2. Two flat polyps ranging between 5-9mm in size at the ileocecal valve; polypectomy was performed with a cold snare 3. Seven sessile polyps measuring 3-10 mm mm in size in the ascending colon; site was controlled using hemoclip X1 4. Three sessile polyps ranging between 3-7mm in size were found in the bleeding at the site was controlled by using hemoclip X1 5. Pedunculated polyp measuring 1 cm in size was found in the rectum; polypectomy was performed using snare cautery 6. Sessile polyp measuring 1.5 cm in size in the anal canal on a hemorrhoid - not resected 7. Mild diverticulosis in the sigmoid colon 8. Intubation to terminal ileum RECOMMENDATIONS: 1. await biopsy results 2. avoid NSAIDS for 2 weeks 3. surgery consult for 1.5 cm sessile polyp in anal canal on hemorrhoid RECALL: Return in 2 month(s) for Colonoscopy. Harinder Yepez Dr eSigned: Harinder Yepez Dr 03/29/2022 3:27 PM Revised: 03/29/2022 3:27 PM cc: Josue Blanco CPT CODES: ICD9 CODES: PATIENT NAME: Danish Lock MR#: [id number]
[2022-03-29 15:35] VITALS: BP 157/60; TEMP 97.6; O2SAT 98
== END 2022-03-29 16:45 | disposition home or self-care (01) ==
LOC: OR 11:50
PROVIDERS: ATTEND Internal Medicine Gastroenterology
PROC: 0DBL8ZX Excision of Transverse Colon, Via Natural or Artificial Opening Endoscopic, Diagnostic (ICD-10-PCS; 2022-03-29)
PROC: 0DBP8ZX Excision of Rectum, Via Natural or Artificial Opening Endoscopic, Diagnostic (ICD-10-PCS; 2022-03-29)
PROC: 0DBC8ZX Excision of Ileocecal Valve, Via Natural or Artificial Opening Endoscopic, Diagnostic (ICD-10-PCS; 2022-03-29)
PROC: 0DBH8ZX Excision of Cecum, Via Natural or Artificial Opening Endoscopic, Diagnostic (ICD-10-PCS; 2022-03-29)
PROC: 0DBK8ZX Excision of Ascending Colon, Via Natural or Artificial Opening Endoscopic, Diagnostic (ICD-10-PCS; principal; 2022-03-29 13:30)
DX: K92.1 Melena (principal); Z86.010 Personal history of colon polyps; Z80.0 Family history of malignant neoplasm of digestive organs; N40.0 Benign prostatic hyperplasia without lower urinary tract symptoms; K57.30 Diverticulosis of large intestine without perforation or abscess without bleeding; K64.8 Other hemorrhoids; D12.7 Benign neoplasm of rectosigmoid junction; D12.2 Benign neoplasm of ascending colon; D12.0 Benign neoplasm of cecum; D12.3 Benign neoplasm of transverse colon
CPT/HCPCS: 88305; 45385; J2704 ×2; J2370; J7120; A4216; J2001

== ENCOUNTER 2022-04-24 08:02 | Day surgery (SDC) | payer OTHER ==
[2022-04-24 09:24] LABS: Absolute Lymphocytes (CBC) 1.1 K/uL (0.7-4.9); Hematocrit 42.9 % (39.6-49.0); Lymphocytes % 12.9 % (15.3-44.8); MCV 92.2 fL (80-100); MPV 7.8 fL (7.6-11.3); RBC Red Blood Cell Count 4.65 M/uL (4.33-5.43)
[2022-04-24 09:35] LABS: SARS-CoV-2 Antigen Rapid Res Negative (Negative)
[2022-04-24 09:35] LABS: Potassium 3.8 mmol/L (3.5-5.1)
[2022-04-24] MEDS ORDERED: Ringers Lactate 1,000 ML IV ONE (09:55)
--- NOTE | 2022-04-24 10:05 | RAD REPORT ---
EXAM DESCRIPTION: Keysha Das And Belle (2 Views)04/24/2022 9:41 am CLINICAL HISTORY: Preop COMPARISON: 2020 FINDINGS: The lungs appear clear of acute infiltrate. The heart is normal size. Pacemaker leads in place IMPRESSION: No acute abnormalities displayed
[2022-04-24] MEDS ORDERED: propofoL 200 MG/20 ML VIAL IV ONE (11:31)
[2022-04-24] MEDS ORDERED: FENTANYL CITR 100 MCG/2 ML ONE (11:31)
[2022-04-24] MEDS ORDERED: CEFAZOLIN SODIUM 1 GM/VIAL IVP ONE (12:30)
[2022-04-24] MEDS ORDERED: CEFAZOLIN SODIUM 1 GM/VIAL ONE (12:32)
--- NOTE | 2022-04-24 12:57 | P.BOP ---
Preoperative diagnosis: anorectal polyp Postoperative diagnosis: same plus internal/external grade 3 hemorrhoids Primary procedure: EUA, anoscopy, rigid proctoscopy, anorectal polypectomy Estimated blood loss: <5cc Specimen: friable 1cm polyp anorectal junction Findings: friable 1cm polyp anorectal junction Anesthesia: General Complications: None Transferred to: Recovery Room Condition: Good
[2022-04-24] MEDS ORDERED: HYDROMORPHONE HCL 1 MG/ML INJ ONE (13:18)
--- NOTE | 2022-04-24 14:07 | EKG ---
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
[2022-04-24] MEDS ORDERED: CODEINE 30MG/APAP 300MG TAB ONE (14:29)
[2022-04-24] MEDS ORDERED: CODEINE 30MG/APAP 300MG TAB PO ONE (14:30)
[2022-04-24 14:57] VITALS: BP 155/69; TEMP 96; O2SAT 96
--- NOTE | 2022-04-25 01:01 | OP ---
Date of Procedure: 04/24/2022 Surgeon: Jovan Guerra MD Preoperative Diagnosis: Anal rectal polyps. History of polyposis coli. Postoperative Diagnosis: Anal rectal polyps. History of polyposis coli plus internal and external g rade 3 hemorrhoids. Procedure: EUA, anoscopy, rigid proctoscopy, anal rectal polypectomy. Estimated Blood Loss: Less than 5 cc. Specimen And Findings: A friable about 1 cm left lateral polyp at the anorectal junction, friable. Anesthesia: General plus local. Indications: This is a case of a male referred to us by the advertising director after recently have m gerson polyps removed from his colon. After colonoscopy, we found 1 in the anorectal junction regio n that is large and 1 excised through surgical intervention. The benefits, alternatives, and risks o f EUA, anoscopy, proctoscopy, possible polypectomy, possible hemorrhoidectomy were fully explained to the patient which include, but not limited to infection, bleeding, damage to adjacent structures, an esthesia complication, bleeding, colon perforation, [place], even . He also understands this may not relieve any symptoms. He might need more than one surgical intervention. He understands the chance of recurrence. He signed a consent. We explained specifically to him since the area where he has h is polyps is in the area also with hemorrhoids that we may encounter, may have to be addressed in ano ther time. He understood. Description Of Procedure: The patient was brought to the operating room, placed in supine position. Anesthesia was done without complication. The patient was placed in lithotomy position with proper protection. A time-out was called. The area was prepped and draped in sterile fashion. Rectal exam ination was done followed by a rigid proctoscopy all the way to about 15 cm. We noticed this polyp t o be in the left lateral side, large to about a little bit more than 1 cm. It is friable to touch. It is mainly connected in the anorectal junction region. After that, I proceeded to also identify in ternal and external hemorrhoids. Some of them are grade 3. After that, I removed that and placed an anoscope with a window on the side that helped visualize once again the anal canal with the findings discussed above. That polyp, I believed, proceeded to carefully an open anoderm and transect that p olyp with gross negative margins with the help of the Harmonic Scalpel and the area of mucosa was danyelle roximated with 3-0 chromic. No bleeding. This was after a tie and Surgicel placed in that area. Th e specimen was removed, sent to the pathologist. We noticed the patient having external and internal hemorrhoids, something grade 3. At this moment, they are not bleeding, but may need some to be addr essed in the future, once we make sure that polyp is not cancerous. The patient tolerated the proced ure well, the patient was sent to Recovery in stable condition. Disposition: Home. Activity: As tolerated. No heavy lifting. Followup: Follow up in my office in one week, call for appointment at [phone]. BETO/BLAISE Voice ID: [id number] Report ID: [id number]
== END 2022-04-24 14:53 | disposition home or self-care (01) ==
LOC: OR 08:02
PROVIDERS: ATTEND Surgery
PROC: 0D5P8ZZ Destruction of Rectum, Via Natural or Artificial Opening Endoscopic (ICD-10-PCS; principal; 2022-04-24 11:45)
DX: D12.9 Benign neoplasm of anus and anal canal (principal); K64.4 Residual hemorrhoidal skin tags; K64.8 Other hemorrhoids; Z86.010 Personal history of colon polyps; Z20.822 Contact with and (suspected) exposure to COVID-19
CPT/HCPCS: 93005; 85025; 80048; 36415; 88305; 71046; 87811; 45320; J2704; J3010; J1170; J7120; J0690 ×2

== ENCOUNTER 2023-04-16 20:32 | Emergency (ER) | payer OTHER ==
--- OUTSIDE RECORDS SUMMARY | 2023-04-16 20:36 | XMS REPORT | Continuity of Care Document ---
:1935 Author Organization [facility] t Address [address] [place] [address] Care Team Providers Name Role Phone Josue Blanco Primary Care Physician Reyes LLANES PhD, Justa Johnson Attending Clinician Lurdes Rebolledo MD Attending Clinician Vika JACOBSON, Devi Francisco Attending Clinician Unavailable Only, Ang Db Test Attending Clinician Unavailable Jo-Ann Fagan Attending Clinician JO-ANN CARBALLO Attending Clinician Unavailable Josue Blanco Admitting Clinician Unavailable LURDES REBOLLEDO Admitting Clinician Unavailable Payers Payer Name Policy Type Policy Number Effective Date Expiration Date S butch AETNA MEDICARE C1 [id number] [facility] AETNA MEDICARE C1 [id number] [facility] AETNA MEDICARE C1 [id number] [facility] rit [facility] Problems Condition Condition Condition Status Onset Resolution Last Treating Co mments Source Name Details Category Date Date Treatment Clinician Date 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-23 st artery artery 00:00: Hospita disease disease 00 l Knee pain Knee pain Disease Active 2019-1 Met hodi 0-23 st 00:00: Hospita 00 l Osteoarthr Osteoarthr Disease Active 2018-07 M ethodi itis of itis of 0-23 st knee knee 00:00: Hospita 00 l Presence Presence Disease Active 2018-07 Metho di of stent of stent 0-23 st in in 00:00: Hospita coronary coronary 00 l artery artery 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 00:00: Hosp eliza (SJM, (SJM, 00 l 08/16/2015 08/16/[address] Parsons) Jaqueline) Essential Essential Disease Active Met hodi hypertensi hypertensi 2-07 st on on 00:00: Hospita 00 l 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 00:00: Ho spita 00 l [id number] Other Problem Common chronic Spirit pain - [facility] [id number] Pain in Problem Common right knee [facility] [id number] Primary Problem Commo n osteoarthr Spirit itis of - CHI both knees [facility] [id number] Left hand Problem Co mmon pain [facility] - [facility] [id number] Pain in Problem Comm on left knee Spirit - [facility] [id number] Status Problem 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 [facility] [id number] Primary Problem Comm on osteoarthr Spirit itis of - CHI right knee [facility] [id number] Presence Problem Comm on of left Spirit artificial - CHI knee joint [facility] [id number] Aftercare Problem Com mon following Spirit joint - CHI replacemen t surgery [facility] [id number] Trigger Problem Commo n finger, Spirit left - CHI middle St finger [facility] Allergies, Adverse Reactions, Alerts Allergy Allergy Status Severity Reaction(s) Onset Inactive Treating Comm ents Source Name Type Date Date Clinician Statins- Propensi Active Other (See 2018-07 Makes pt Methodi Hmg-Coa ty to Comments) 0-[address] Reductas adverse 00:00: over and Hospi ta e reaction 00 arms hurt l Inhibito s to rs drug CODEINE DRUG Active Med Rash Univers INGREDI 4-19 ity of 00:00: [place] 00 Medical Branch Codeine Propensi Active Rash Univers ty to 4-19 ity of adverse 00:00: [place] reaction 00 Medical s to Branch drug Latex Latex Active Unknown [facility] Family History Family Member Diagnosis Comments Start Date Stop Date Source Natural father [facility] Natural mother [facility] Natural sister Heart disease [facility] Natural sister Hypertension [facility] Social History Social Habit Start Date Stop Date Quantity Comments Source History of Tobacco [facility] - Use [facility] Gender identity [facility] Sexual orientation [facility] Exposure to Not sure University of SARS-CoV-2 (event) [facility] Alcohol intake 2021-01-18 2021-01-18 Current [facility] 00:00:00 00:00:00 non-drinker of Hospital alcohol (finding) History of Social 2021-01-18 2021-01-[address] function 00:00:00 00:00:00 Hospital Tobacco use and 2015-12-02 2015-12-02 Never used Universit y of exposure 00:00:00 00:00:00 [facility] Sex Assigned At [birth year] [facility] 00:00:00 00:00:00 Hospital Smoking Status Start Date Stop Date Source Never Smoker [facility] Former smoker 2015-12-02 00:00:00 2015-12-02 00:00:00 General acute hospital Medications Ordered Filled Start Stop Current Ordering Indication Dosage Frequency Signature Comments Components Source Medication Medication Date Date Medication? Clinician (SIG) Name Name hydroCHLORO Yes 12.5mg QD Take 1 Me thodi thiazide 5-[address] (HYDRODIURI 14:10: (12.5 mg Ho spita L) 12.5 MG 18 total) by l tablet mouth daily. aspirin 0 Yes 81mg QD Take 1 Methodi (ECOTRIN) 5-02 tablet (81 st 81 MG 14:10: mg total) Hospita enteric 18 by mouth l coated daily. tablet lisinopril 0 Yes 20mg Q.5D Take 1 Metho di (PRINIVIL) 5-02 tablet (20 st 20 mg 14:10: mg total) Hospita tablet 18 by mouth 2 l (two) times a day. ibuprofen Yes 200mg Q6H Take 1 Metho di (ADVIL) 200 5-[address] MG tablet 14:10: (200 mg Hospi ta 18 total) by l mouth every 6 (six) hours as needed for mild pain. metoprolol Yes TAKE 1 AND M ethodi tartrate 3-20 1/[address] (LOPRESSOR) 00:00: (75MG) BY H ospita 50 mg 00 MOUTH l tablet TWICE A DAY metoprolol 2022- No TAKE 1 AND Methodi tartrate 1-27 03-20 1/[address] (LOPRESSOR) 00:00: 00:00 (75MG) BY Hospita 50 mg 00 :00 MOUTH l tablet TWICE A DAY Betamethaso Betamethaso No .5mL Common ne Sodium ne Sodium 4-29 Spiri t Phosphate Phosphate 00:00: - C HI 00 [facility] LIDOCAINE LIDOCAINE No 10mg Com mon HCL 10MG/ML HCL 10MG/ML 4-29 S pirit 00:00: - CHI 00 [facility] Tramadol Tramadol 2019- No Leonel TAKE 1 Common HCl HCl 2-05 02-15 Mohan TABLET BY Spirit 00:00: 00:00 MOUTH - CHI 00 :[address] HOURS [facility] Hyalgan 20 Hyalgan 20 No 20mg C ommon mg mg 1- Spirit 00:00: - CH[facility] Bupivicaine Bupivicaine No 2.5mg Common Popejoy Popejoy 07-31 Spirit 00:00: - [facility] Hyalgan 20 Hyalgan 20 2017-07 No 20mg C ommon mg mg 09-24 Spirit 00:00: - [facility] Bupivicaine Bupivicaine 2017-07 No 2.5mg Common Popejoy Popejoy 09-24 Spirit 00:00: - [facility] Hyalgan 20 Hyalgan 20 2017-07 No 20mg C ommon mg mg 09-17 Spirit 00:00: - [facility] Bupivicaine Bupivicaine 2017-07 No 2.5mg Common Popejoy Popejoy 09-17 Spirit 00:00: - [facility] Cyclobenzap Cyclobenzap 2017-07 Yes Leonel 1 tablet Common rine HCl rine HCl 2-07 Mohan as needed Sp aris 00:00: - [facility] amLODIPine Yes 10mg QD Take 1 Metho di (NORVASC) 1-31 tablet (10 st 10 mg 00:00: mg total) Hospita tablet 00 by mouth l daily. levothyroxi 2015-07 Yes 112ug QD Take 1 Met hodi ne sodium 1-[address] (TIROSINT) 00:00: (112 mcg Hos sridevi 112 mcg 00 total) by l capsule mouth once daily. lisinopril Yes 20mg Take 20 mg U nivers (PRINIVIL,Z 5-04 by mouth 2 it y of ESTRIL) 20 20:04: (two) [place] mg tablet 51 times Medical daily. Branch aspirin 81 Yes 81mg Take 81 mg U nivers mg EC 5-04 by mouth ity of tablet 20:04: daily. [place] 51 Medical Branch levothyroxi Yes 100ug Take 100 U nivers ne 5-04 mcg by ity of (SYNTHROID) 20:04: mouth [place] 100 mcg 51 daily. Medical tablet Branch hydrochloro Yes 12.5mg Take 12.5 Univers thiazide 5-04 mg by ity of (ESIDRIX) 20:04: mouth [place] 12.5 mg 51 daily. Medical capsule Branch carvedilol Yes 3.125mg Take 3.125 Univers (COREG) 5-04 mg by ity of 3.125 mg 20:04: mouth 2 [place] tablet 51 (two) Medical times Branch daily. lisinopril Yes 20mg Take 20 mg U nivers (PRINIVIL,Z 5-04 by mouth 2 it y of ESTRIL) 20 20:04: (two) [place] mg tablet 51 times Medical daily. Branch aspirin 81 Yes 81mg Take 81 mg U nivers mg EC 5-04 by mouth ity of tablet 20:04: daily. [place] [address] Medical Branch levothyroxi Yes 100ug Take 100 U nivers ne 5-04 mcg by ity of (SYNTHROID) 20:04: mouth [place] 100 mcg 51 daily. Medical tablet Branch hydrochloro Yes 12.5mg Take 12.5 Univers thiazide 5-04 mg by ity of (ESIDRIX) 20:04: mouth [place] 12.5 mg 51 daily. Medical capsule Branch carvedilol Yes 3.125mg Take 3.125 Univers (COREG) 5-04 mg by ity of 3.125 mg 20:04: mouth 2 [place] tablet 51 (two) Medical times Branch daily. lisinopril Yes 20mg Take 20 mg U nivers (PRINIVIL,Z 5-04 by mouth 2 it y of ESTRIL) 20 20:04: (two) [place] mg tablet 51 times Medical daily. Branch aspirin 81 Yes 81mg Take 81 mg U nivers mg EC 5-04 by mouth ity of tablet 20:04: daily. [place] [address] Medical Branch levothyroxi Yes 100ug Take 100 U nivers ne 5-04 mcg by ity of (SYNTHROID) 20:04: mouth [place] 100 mcg 51 daily. Medical tablet Branch hydrochloro Yes 12.5mg Take 12.5 Univers thiazide 5-04 mg by ity of (ESIDRIX) 20:04: mouth [place] 12.5 mg 51 daily. Medical capsule Branch carvedilol Yes 3.125mg Take 3.125 Univers (COREG) 5-04 mg by ity of 3.125 mg 20:04: mouth 2 [place] tablet 51 (two) Medical times Branch daily. amLODIPine Yes 10mg Take 10 mg U nivers (NORVASC) 5-04 by mouth ity of 10 mg 20:04: daily. [place] tablet 50 Medical Branch amLODIPine 0 Yes 10mg Take 10 mg U nivers (NORVASC) 5-04 by mouth ity of 10 mg 20:04: daily. [place] tablet 50 Medical Branch amLODIPine Yes 10mg Take 10 mg U nivers (NORVASC) 5-04 by mouth ity of 10 mg 20:04: daily. [place] tablet 50 Medical Branch Amlodipine Amlodipine Yes Leonel not Common Besylate Besylate Mohan defined [facility] - Aspir- Yes Leonel not Comm on Mohan defined [facility] Lisinopril Lisinopril Yes Leonel not Common Mohan defined [facility] Hydrochloro Hydrochloro Yes Leonel not Common thiazide thiazide Mohan defined [facility] Housatonic Housatonic Yes Leonel 1 tablet Common Mohan as needed [facility] Metoprolol Metoprolol Yes Leonel not Common Tartrate Tartrate Mohan defined [facility] Levothyroxi Levothyroxi Yes Leonel not Common ne Sodium ne Sodium Mohan defined Sp [facility] Amlodipine Amlodipine No Amlodipine Besylate Besylate Besylate Levothyroxi Levothyroxi No Levothyrox ne Sodium ne Sodium ine Sodium Metoprolol Metoprolol No Metoprolol Tartrate Tartrate Tartrate Hydrochloro Hydrochloro No Hydrochlor thiazide thiazide othiazide Lisinopril Lisinopril No Lisinopril - Aspir-81 No Aspir- Amlodipine Amlodipine No Amlodipine Besylate Besylate Besylate Levothyroxi Levothyroxi No Levothyrox ne Sodium ne Sodium ine Sodium - Aspir-81 No - Metoprolol Metoprolol No Metoprolol Tartrate Tartrate Tartrate Hydrochloro Hydrochloro No Hydrochlor thiazide thiazide othiazide Lisinopril Lisinopril No Lisinopril amLODIPine amLODIPine No amLODIPine Besylate Besylate Besylate Levothyroxi Levothyroxi No Levothyrox ne Sodium ne Sodium ine Sodium Aspir-81 Aspir-81 No Aspir-81 Lisinopril Lisinopril No Lisinopril Metoprolol Metoprolol No Metoprolol Tartrate Tartrate Tartrate hydroCHLORO hydroCHLORO No hydroCHLOR thiazide thiazide Othiazide amLODIPine amLODIPine No amLODIPine Besylate Besylate Besylate Levothyroxi Levothyroxi No Levothyrox ne Sodium ne Sodium ine Sodium Aspir-81 Aspir-81 No Aspir-81 Lisinopril Lisinopril No Lisinopril Metoprolol Metoprolol No Metoprolol Tartrate Tartrate Tartrate hydroCHLORO hydroCHLORO No hydroCHLOR thiazide thiazide Othiazide Metoprolol Metoprolol No Metoprolol Tartrate Tartrate Tartrate Aspir-81 Aspir-81 No Aspir-81 Lisinopril Lisinopril No Lisinopril Levothyroxi Levothyroxi No Levothyrox ne Sodium ne Sodium ine Sodium amLODIPine amLODIPine No amLODIPine Besylate Besylate Besylate hydroCHLORO hydroCHLORO No hydroCHLOR thiazide thiazide Othiazide Immunizations Ordered Immunization Filled Immunization Date Status Commen ts Source Name Name ISIDRAZONE HIGH-DOSE PF 2019-05-05 Completed Meth odist 00:00:00 Hospital Pneumococcal 2019-05-05 Completed [facility] Conjugate 00:00:00 [facility] Betamethasone Sodium Betamethasone Sodium 2018-11-25 Completed [facility] - Phosphate Phosphate 14:08:00 [facility] LIDOCAINE HCL LIDOCAINE HCL 2018-11-25 Completed Common S pirit - 10MG/ML 10MG/ML 14:08:00 [facility] Betamethasone Sodium Betamethasone Sodium 2018-11-25 Completed [facility] - Phosphate Phosphate 14:08:00 [facility] LIDOCAINE HCL LIDOCAINE HCL 2018-11-25 Completed Common S pirit - 10MG/ML 10MG/ML 14:08:00 [facility] Bupivicaine Popejoy Bupivicaine Popejoy 2018-07-31 Completed [facility] - 13:54:00 [facility] Bupivicaine Popejoy Bupivicaine Popejoy 2018-07-31 Completed [facility] - 13:54:00 [facility] Hyalgan 20 mg Hyalgan 20 mg 2018-07-31 Completed Common S pirit - 13:53:00 [facility] Hyalgan 20 mg Hyalgan 20 mg 2018-07-31 Completed Common S pirit - 13:53:00 [facility] Bupivicaine Popejoy Bupivicaine Popejoy 2018-07-24 Completed [facility] - 15:41:00 [facility] Bupivicaine Popejoy Bupivicaine Popejoy 2018-07-24 Completed [facility] - 15:41:00 [facility] Hyalgan 20 mg Hyalgan 20 mg 2018-07-24 Completed Common S pirit - 15:40:00 [facility] Hyalgan 20 mg Hyalgan 20 mg 2018-07-24 Completed Common S pirit - 15:40:00 [facility] Hyalgan 20 mg Hyalgan 20 mg 2018-07-17 Completed Common S pirit - 15:43:00 [facility] Hyalgan 20 mg Hyalgan 20 mg 2018-07-17 Completed Common S pirit - 15:43:00 [facility] Bupivicaine Popejoy Bupivicaine Popejoy 2018-07-17 Completed [facility] - 15:42:00 [facility] Bupivicaine Popejoy Bupivicaine Popejoy 2018-07-17 Completed [facility] - 15:42:00 [facility] Vital Signs Vital Name Observation Time Observation Value Comments Source height 2022-06-20 10:00:00 69 [in_i] [facility] weight 2022-06-20 10:00:00 210 [lb_av] [facility] temperature 2022-06-20 10:00:00 97.2 [degF] [facility] bmi 2022-06-20 10:00:00 31.01 kg/m2 [facility] blood pressure 2022-06-20 10:00:00 134 mm[Hg] [facility] - systolic [facility] blood pressure 2022-06-20 10:00:00 84 mm[Hg] [facility] - diastolic [facility] height 2021-06-16 13:00:00 69 [in_i] [facility] weight 2021-06-16 13:00:00 210 [lb_av] [facility] bmi 2021-06-16 13:00:00 31.01 kg/m2 Common S pirit - [facility] blood pressure 2021-06-16 13:00:00 141 mm[Hg] [facility] - systolic [facility] blood pressure 2021-06-16 13:00:00 73 mm[Hg] [facility] - diastolic [facility] height 2020-12-16 14:30:00 69 [in_i] Common S pirit - [facility] weight 2020-12-16 14:30:00 208 [lb_av] Common S pirit [facility] temperature 2020-12-16 14:30:00 97.5 [degF] Common S pirit [facility] bmi 2020-12-16 14:30:00 30.71 kg/m2 Common S pirit - [facility] blood pressure 2020-12-16 14:30:00 118 mm[Hg] [facility] - systolic [facility] blood pressure 2020-12-16 14:30:00 78 mm[Hg] [facility] - diastolic [facility] height 2020-09-23 14:30:00 69 [in_i[facility] weight 2020-09-23 14:30:00 208 [lb_av] Common S pirit [facility] bmi 2020-09-23 14:30:00 30.71 kg/m2 Common S pirit - [facility] blood pressure 2020-09-23 14:30:00 152 mm[Hg] [facility] - systolic [facility] blood pressure 2020-09-23 14:30:00 70 mm[Hg] [facility] - diastolic [facility] Systolic blood 2022-11-28 19:55:00 154 mm[Hg] [facility] pressure Diastolic blood 2022-11-28 19:55:00 70 mm[Hg] [facility] pressure Heart rate 2022-11-28 19:55:00 59 /min [facility] Body height 2022-11-28 19:55:00 177.8 cm [facility] Body weight 2022-11-28 19:55:00 97.523 kg [facility] BMI 2022-11-28 19:55:00 30.85 kg/m2 [facility] Procedures Procedure Date / Time Performing Clinician Source Performed ECG 12-LEAD 2022-11-28 18:11:37 Lurdes Rebolledo spital CV PACEMAKER DEFIB ILR 2022-11-28 00:00:00 Justa Chambers [facility] INTERROGATION US CAROTID DUPLEX 2022-06-13 17:54:20 Lurdes Rebolledo [facility] BILATERAL COVID-19 (MOLECULAR 2021-03-29 15:43:00 Haris [facility] NUCLEIC ACID AMPLIFICATION) LAB ONLY COVID 2021-03-29 15:43:00 [facility]is [facility] Planned Activity Planned Date Details Comments Source Future Scheduled 2023-04-02 COVID-19 VACCINE (#1) [facility] Test 13:57:41 [code = COVID-19 VACCINE (#1)] Future Scheduled 2023-04-02 SHINGLES VACCINES (1 Met [facility] Test 13:57:41 of 2) [code = SHINGLES VACCINES (1 of 2)] Future Scheduled 2023-04-02 65+ PNEUMOCOCCAL [facility] Test 13:57:41 VACCINE (2 - PCV) [code = 65+ PNEUMOCOCCAL VACCINE (2 - PCV)] Future Scheduled 2023-04-02 INFLUENZA VACCINE (#1) [facility] Test 13:57:41 [code = INFLUENZA VACCINE (#1)] Encounters Start End Encounter Admission Attending Care Care Encounter Source Date/Time Date/Time Type Type Clinicians Facility Department ID 2022-06-20 Outpatient [facility] [id number] Common 09:40:01 [id number] [facility] 2021-08-24 Outpatient [facility] [id number] Common 12:07:43 [id number] [facility] 2022-11-28 2022-12-07 Office Justa Chambers 1.2.840.1 [id number] Methodi 16:00:00 05:39:10 [address]66.1.[address] 3.430.2.7 Hospit a .3.483856 l .8 2022-12-01 2022-12-01 Orders Justa Chambers 1.2.840.1 [id number] Methodi 00:00:00 00:00:[address] 3.430.2.7 Hospit a .3.217910 l .8 2022-11-28 2022-11-28 Office Kesha 1.2.840.1 [id number] Methodi 13:40:00 16:42:40 Visit Lurdes Billingsley 96620.1.[address] 3.430.2.7 Hospit a .3.715612 l .8 2022-11-28 2022-11-28 Outpatient KESHA [facility] [id number] [place] 00:00:00 00:00:00 LURDES [address] 2022-11-28 2022-11-28 Travel 1.2.840.1 [id number] [id number] Methodi 00:00:00 00:00:[address] 3.430.2.7 0.2.7.3.698 Ho spita .3.687503 084.8 l .8 2022-11-28 2022-11-28 Outpatient JUSTA CHAMBERS [facility] [id number] [place] 00:00:00 00:00:[address] 2022-10-12 2022-10-12 Refill Kesha 1.2.840.1 [id number] Methodi 00:00:00 00:00:00 [address] 3.430.2.7 Hospit a .3.457844 l .8 2022-06-20 2022-06-20 OFFICE STLMLC STLMLC [id number] Co mmon 00:00:00 00:00:00 VISIT Spirit ESTAB PT - CHI LEVEL 4 [facility] 2022-06-13 2022-06-13 Office Kesha 1.2.840.1 [id number] Methodi 12:00:00 15:10:15 Visit Lurdes Billingsley 96001.1.[address] 3.430.2.7 Hospit a .3.204885 l .8 2022-06-13 2022-06-13 Travel 1.2.840.1 [id number] [id number] Methodi 00:00:00 00:00:[address] 3.430.2.7 0.2.7.3.698 Ho spita .3.943014 084.8 l .8 2022-06-13 2022-06-13 Outpatient [facility] [id number] [place] 00:00:00 00:00:00 LURDES 249 Method i 2022-06-13 2022-06-13 Outpatient [facility] [id number] [place] 00:00:00 00:00:00 LURDES 392 Method i 2021-09-12 2021-09-12 (TEL) STLMLC STLMLC [id number] Co mmon 00:00:00 00:00:00 Spirit - [facility] 2021-07-12 2021-07-12 Outpatient [facility] [id number] [place] 00:00:00 00:00:00 LURDES 690 Method i 2021-07-12 2021-07-12 Outpatient [facility] [id number] [place] 00:00:00 00:00:00 LURDES 744 Method i 2021-06-16 2021-06-16 OFFICE STLMLC STLMLC [id number] Co mmon 00:00:00 00:00:00 VISIT EST Spir it PT LEVEL 3 - CHI [facility] 2021-03-31 2021-03-31 Letter JACIEL Sandy 1.2.840.114 [id number] Univers 00:00:00 00:00:00 (Out) Devi JONAS 350.1.13.10 it y [facility] 4.2.7.2.686 Joaquin as [id number] [facility] charanjit 019 Branch 2021-03-29 2021-03-29 Laboratory Only, Ang Db Test [facility] 1.2.8 40.114 [id number] [facility] 10:18:09 13:35:37 Only Jo-Ann Carballo [facility].10 [facility] 4.2.7.2.686 Joaquin as Reyes?Blea [phone] [place] [address] Medical [facility] Building 2021-03-29 2021-03-29 Outpatient Jordyn HARIS [facility] [id number] Univers 10:20:00 10:20:00 JO-ANN [facility] 2021-01-18 2021-01-18 Outpatient KESHA [facility] [id number] [address] [place] [address] 00:00:00 00:00:00 LURDES [address] 2020-12-16 2020-12-16 OFFICE STLMLC STLMLC [id number] Co mmon 00:00:00 00:00:00 VISIT EST Spir it PT LEVEL 3 [facility] 2020-09-23 2020-09-23 OFFICE STLMLC STLMLC [id number] Co mmon 00:00:00 00:00:00 VISIT EST Spir it PT LEVEL 3 [facility] 2020-09-07 2020-09-07 Outpatient STLMLC STLMLC [id number] Common 00:00:00 00:00:00 [facility] 2020-07-14 2020-07-14 Outpatient STLMLC STLMLC [id number] Common 00:00:00 00:00:00 [facility] 2020-07-13 2020-07-13 Outpatient STLMLC STLMLC [id number] Common 00:00:00 00:00:00 [facility] 2020-07-05 2020-07-05 Outpatient STLMLC STLMLC [id number] Common 00:00:00 00:00:00 [facility] 2020-06-03 2020-06-03 Outpatient STLMLC STLMLC [id number] Common 00:00:00 00:00:00 [facility] 2020-05-12 2020-05-12 Outpatient STLMLC STLMLC [id number] Common 00:00:00 00:00:00 [facility] 2020-04-14 2020-04-14 Outpatient [facility] [id number] Common 14:18:00 14:18:00 [facility] - [facility] 2020-04-13 2020-04-13 Outpatient [facility] [id number] Common 11:28:00 11:28:00 t [facility] - [facility] 2020-03-29 2020-03-29 Outpatient [facility] [id number] Common 10:41:00 10:41:00 t [facility] t and [facility] - [facility] 2020-02-25 2020-02-25 Outpatient [facility] [id number] Common 09:00:00 09:00:00 t [facility] - [facility] 2020-01-20 2020-01-20 Outpatient [facility] [id number] [address] [place] 00:00:00 00:00:00 LURDES 816 Method i 2020-01-20 2020-01-20 [facility] [id number] [place] 00:00:00 00:00:00 LURDES 549 Method i 2019-05-15 2019-05-15 [id number] [place] 00:00:00 00:00:00 LURDES 398 Method i 2018-11-25 2018-11-25 Outpatient [facility] [id number] Common 13:30:00 13:30:00 t [facility] Sp[facility] t and [facility] 2018-09-03 2018-09-03 [id number] Common 15:39:00 15:39:00 t [facility] - [facility] 2018-08-28 2018-08-28 [id number] Common 14:30:00 14:30:00 t [facility] Sp[facility] t [facility] Joint Joint - [facility] 2018-08-27 2018-08-27 [id number] Common 16:19:00 16:19:00 t [facility] Bone [facility] Spiri t and Joint Joint - [facility] 2018-07-31 2018-07-31 [facility] [id number] Common 14:00:00 14:00:00 t [facility] Bone and Spiri t and Joint Joint - [facility] 2018-07-24 2018-07-24 [facility] [id number] Common 15:30:00 15:30:00 t [facility] Bone [facility] Spiri t and Joint Joint - [facility] 2018-07-17 2018-07-17 [id number] Common 14:00:00 14:00:00 t [facility] Bone [facility] Spiri t and Joint Joint - [facility] 2018-07-05 2018-07-05 [facility]patient [facility] [id number] Common 10:00:00 10:00:00 t [facility] Bone [facility] Spiri t and Joint Joint - [facility] 2018-05-08 2018-05-08 [facility] [id number] Common 08:00:00 08:00:00 t [facility] Spiri t [facility] Joint Joint - [facility] Results Test Description Test Time Test Comments Results Result Comments Source ECG 12 lead 2022-11-29 12:50:52 Test Item Value Reference Range Interpretation Comme nts Ventricular rate (test code = 253) 64 Atrial rate (test code = 255) 60 QRSD interval (test code = 260) 166 QT interval (test code = 264) 512 QTC interval (test code = 265) 528 P axis 1 (test code = 267) 72 QRS axis 1 (test code = 268) -80 T wave axis (test code = 270) 99 EKG impression (test code = 273) AV dual-paced rhythm with occasion al and consecutive premature ventricular complexes-Abnormal ECG-In automated comparison with ECG of 18-JAN-2021 13:12,-Vent. rate has decreased BY 9 BPM- [facility] ONLY COVID [id number] 15:22:15COVID DMT InterpretationInterpretation/Recommendations:Molecular NAAT Tests for Active Infection with the SARS-CoV-2 Virus:The patient has currently tested negative for the SARS-CoV-2 virus that causesCOVID-19 illness. This most likely indicates that the patient does not have an active infection withthe SARS-CoV-2 virus. However, infection is not completely ruled out as the false negative rate for m olecular NAAT testing using a nasopharyngeal sample can be up to 30%, mostly dependent on the timingof sample collection in relation to illness onset and any deficiencies in sampling techniques. If the patient has symptoms concerning for COVID-19 illness, a repeat NAAT test (PCR, Rapid ID Now, etc.) should be performed, at which time the SARS-CoV-2 virus if present may have reached a detectable viral load (usually peaking by the end of the first week of symptoms). Tests for IgM and/or IgG Antibodies to the SARS-CoV-2 Virus:Testing for IgM and IgG antibodies approximately 3 weeks after illness onset will likely indicate if the patient has produced antibodies to the SARS-CoV-2 virus. However , some patients may take longer to develop detectable antibodies, while others infected with SARS-CoV-2 may never develop antibodies, particularly those who have had mild or asymptomatic illness. Of note, if the patient has been vaccinated earlier than 1-2 weeks prior to antibody testing, any positive SARS-CoV-2 IgG antibody result is likely due to vaccination. The specific duration and strength of immunity from SARS-CoV-2 IgG antibodies is highly variable between individuals and is dependent on a variety of factors, including infection vs. vaccination response, initial infection severity, the strength of the patient's own immune system, and the variants to which the patient has been exposed. ? --- Interpretation Result Comments:These interpretation comments are based upon all COVID-19 testing the patient has had at [facility], including molecular NAAT testing (more commonly known as PCR testing and Rapid ID Now testing) and antibody testing. It does not take into account any testing that a patient has had outside of the [facility] medical record. [facility] LABORATORY SERVICESCOVID [id number] NAAT (no units) ? ? Date ? Value ? 03/29/2021 ? Not Detected ? [facility]MOLECULAR TESTING NUCLEIC ACID AMPLIFICATION)2021-03-30 01:14:47 Test Item Value Reference Interpretation Comments Range SARS-CoV-2 NAAT Not Detected Not Detected [place] on (test code = SARS-CoV-2 [place] [address]-9) a real-time RT- PCR test intended f or the qualitative detection of RN A from SARS-CoV-2 from nasopharyn geal (DIGITAL SOLUTION ARCHITECT) specimens. It is used under Emergency Use Authorization ( EUA) by FDA. FRANCISCO (test code = A positive FRANCISCO) result is indicative of the presence of SARS-CoV-2 RNA. ?Clinical correlation with patient history and other diagnostic information is necessary to determine patient infection status. A negative (Not Detected) result does not preclude SARS-CoV-2 infection. Clinical correlation with patient history and other diagnostic information should be used in patient management decisions. Invalid: Unable to generate a valid test result on this specimen. Please collect a new specimen for repeat patient testing if clinically indicated. Lab Interpretation Normal (test code = 13310-7) [facility]
--- NOTE | 2023-04-16 21:32 | RAD REPORT ---
EXAM DESCRIPTION: RADChest Single View04/16/2023 9:14 pm CLINICAL HISTORY: CONGESTION COMPARISON: Chest Pa And Lat (2 Views) dated 04/24/2022; Chest Pa And Lat (2 Views) dated 03/17/2021; Chest Pa And Lat (2 Views) dated 06/03/2020; Chest Single View dated 04/05/2019 TECHNIQUE: Portable AP view of the chest. FINDINGS: Decreased inspiratory effort limits evaluation. Central interstitial prominence. Crowding of the central vascular markings. Blunting of the left costophrenic angle, which may relate to atelec tasis or trace effusion. No pneumothorax or effusion. The cardiomediastinal contours are unremarkabl e. Left chest wall pacer/AICD in place. IMPRESSION: Findings suggestive of central venous congestion or CHF. Decreased inspiratory effort so mewhat limits evaluation.
[2023-04-16 21:42] LABS: Absolute Lymphocytes (CBC) 0.5 K/uL (0.7-4.9); Hematocrit 40.1 % (39.6-49.0); Lymphocytes % 5.8 % (15.3-44.8); MCV 92.6 fL (80-100); MPV 7.9 fL (7.6-11.3); Platelets 255 thou/uL (152-406); RBC Red Blood Cell Count 4.33 M/uL (4.33-5.43)
[2023-04-16 21:48] LABS: Protime INR 1.1
[2023-04-16 21:56] LABS: SARS-CoV-2 Antigen Rapid Res Positive (Negative)
[2023-04-16 22:02] LABS: ALT/SGPT 20 U/L (16-61); AST/SGOT 15 U/L (15-37); Albumin 3.7 g/dL (3.4-5.0); Alkaline Phosphatase 69 U/L (45-117); BUN Blood Urea Nitrogen 18 mg/dL (7-18); Bicarbonate 26 mEq/L (21-32); Bilirubin Total 0.3 mg/dL (0.2-1.0); Glomerular Filtration Rate 54 ml/min (=/>90); Glucose Level 116 mg/dL (74-106); NT PRO-BNP 2005 pg/mL (<450); Potassium 3.7 mEq/L (3.5-5.1); Protein, Total 7.3 g/dL (6.4-8.2); Sodium Level 135 mEq/L (136-145); Troponin High Sensitivity 26.9 pg/mL (<58.9)
[2023-04-16 22:03] LABS: Bilirubin Direct < 0.1 mg/dL (0-0.2); Bilirubin Indirect, Calculated ND mg/dL (0.2-0.8)
--- NOTE | 2023-04-16 23:12 | EDPHYS ---
Physician Documentation [facility] Name: Danish Lock Age: 88 yrs Sex: Male : 1935 Arrival Date: 04/16/2023 Time: 20:32 Bed 19 Private MD: ED Physician Nicolás Smith HPI: 04/16 20:39 This 88 yrs old Male presents to ER via Unassigned with complaints of General sp4 Weakness, Congestion, Headache, Fever. 04/17 08:26 Patient presents with a cute onset of generalized weakness, congestion, headaches, sp4 fevers and feeling unwell overall. The patient has started in the morning. Patient was assessed in the waiting area. History of hypertensive disorder and hypothyroidism. Historical: - Allergies: 04/16 23:05 No Known Allergies; me1 - PMHx: 23:05 Hypertensive disorder; Hypothyroidism; me1 - PSHx: 23:05 Stented artery; pacemaker; Operative procedure on knee; cataract surgery; me1 - Immunization history:: Adult Immunizations up to date. - Social history:: Smoking status: Patient/guardian denies using tobacco, but has a distant history of tobacco abuse. - Family history:: not pertinent. ROS: 04/17 08:26 Constitutional: Negative for weight loss, positive for fever, chills, generalized sp4 weakness, feeling unwell, congestion, headache All other systems are negative, Exam: 08:26 Constitutional: This is a well developed, well nourished patient who is awake, alert, sp4 and in no acute distress. Patient is a frail elderly male with upper respiratory congestion Head/Face: Normocephalic, atraumatic. Eyes: Pupils equal round and reactive to light, extra-ocular motions intact. Lids and lashes normal. Conjunctiva and sclera are not injected. Cornea within normal limits. Periorbital areas with no swelling, redness, or edema. ENT: Nares patent. Tympanic membranes are normal and external auditory canals are clear. Oropharynx with no redness, swelling, or masses, exudates, or evidence of obstruction, uvula midline. Mucous membranes moist. Moderate nasal and upper respiratory congestion Neck: Trachea midline, no thyromegaly or masses palpated, and no cervical lymphadenopathy. Supple, full range of motion without nuchal rigidity, or vertebral point tenderness. Chest/axilla: Normal chest wall appearance and motion. Nontender with no deformity. No lesions are appreciated. Cardiovascular: Regular rate and rhythm with a normal S1 and S2. No gallops, murmurs, or rubs. Normal PMI, no JVD. No pulse deficits. Respiratory: Lungs have equal breath sounds bilaterally, clear to auscultation and percussion. No rales, rhonchi or wheezes noted. No increased work of breathing, no retractions or nasal flaring. Abdomen/GI: Soft, non-tender, with normal bowel sounds. No distension or tympany. No guarding or rebound. No evidence of tenderness throughout. Back: No spinal tenderness. No costovertebral tenderness. Skin: Warm, dry with normal turgor. Normal color with no rashes, no lesions, and no evidence of cellulitis. MS/ Extremity: Pulses equal, no cyanosis. Neurovascular intact. Full, normal range of motion. Neuro: Awake and alert, GCS 15, oriented to person, place, time, and situation. Cranial nerves II-XII grossly intact. Motor strength 5/5 in all extremities. Sensory grossly intact. Psych: Awake, alert, with orientation to person, place and time. Behavior, mood, and affect are within normal limits 08:26 ECG was reviewed by the Attending Physician. EKG time 2135, there is a AV paced rhythm sp4 at 60 bpm, AV sequential dual-chamber electronic pacing Vital Signs: 04/16 23:01 BP 176 / 80; Pulse 58; Resp 20; Temp 99(TE); Pulse Ox 100% on R/A; Weight 92.08 kg; me1 Height 5 ft. 10 in. ; Pain 5/10; 04/17 00:02 BP 176 / 82; Pulse 66; Resp 16; Pulse Ox 100% ; bp 04/16 23:01 Body Mass Index 29.13 (92.08 kg, 177.8 cm) me1 04/16 23:01 Pain Scale: Adult me1 Michelle Coma Score: 08:26 Eye Response: spontaneous(4). Motor Response: obeys commands(6). Verbal Response: sp4 oriented(5). Total: 15. MDM: 04/16 20:40 Patient medically screened. sp4 04/17 08:26 Differential diagnosis: hypertensive headache, hypoglycemia, hyponatremia, migraine, sp4 vasomotor headache. Data reviewed: vital signs, nurses notes, lab test result(s), Flu: negative EKG, radiologic studies, plain films. Consideration of Admission/Observation Escalation of care including admission/observation considered. ED course: Chest X ray - COMPARISON: Chest Pa And Lat (2 Views) dated 04/24/2022; Chest Pa And Lat (2 Views) dated 03/17/2021; Chest Pa And Lat (2 Views) dated 06/03/2020; Chest Single View dated 04/05/2019 TECHNIQUE: Portable AP view of the chest. FINDINGS: Decreased inspiratory effort limits evaluation. Central interstitial prominence. Crowding of the central vascular markings. Blunting of the left costophrenic angle, which may relate to atelectasis or trace effusion. No pneumothorax or effusion. The cardiomediastinal contours are unremarkable. Left chest wall pacer/AICD in place. IMPRESSION: Findings suggestive of central venous congestion or CHF. Decreased inspiratory effort somewhat limits evaluation. . 08:30 ED course: Patient is positive for COVID-19, oxygen saturation is stable, patient sp4 wishes to be discharged home. Will prescribe Paxlovid. . 04/16 20:39 Order name: Basic Metabolic Panel; Complete Time: 22:49 [facility] 04/16 20:39 Order name: CBC with Diff; Complete Time: 22:49 [facility] 04/16 20:39 Order name: LFT's; Complete Time: 22:49 [facility] 04/16 20:39 Order name: Magnesium; Complete Time: 22:49 [facility] 04/16 20:39 Order name: NT PRO-BNP; Complete Time: 22:49 [facility] 04/16 20:39 Order name: PT-INR; Complete Time: 22:49 4 04/16 20:39 Order name: Troponin HS; Complete Time: 22:49 [facility] 04/16 20:39 Order name: SARS RAPID; Complete Time: 22:49 [facility] 04/16 20:39 Order name: Influenza Screen (a \T\ B); Complete Time: 22:49 4 04/16 20:39 Order name: XRAY Chest (1 view); Complete Time: 22:49 [facility] 04/16 20:39 Order name: EKG; Complete Time: 20:40 4 04/16 20:39 Order name: Cardiac monitoring; Complete Time: 23:18 sp4 04/16 20:39 Order name: EKG - Nurse/Tech; Complete Time: 21:32 sp4 04/16 20:39 Order name: IV Saline Lock; Complete Time: 21:32 sp4 04/16 20:39 Order name: Labs collected and sent; Complete Time: 21:32 sp4 04/16 20:39 Order name: O2 Per Protocol; Complete Time: 23:18 sp4 04/16 20:39 Order name: O2 Sat Monitoring; Complete Time: 23:18 sp4 EC: Rate is 60 beats/min. Rhythm is regular, Paced. Interpreted by me. Reviewed by me. sp4 Administered Medications: 04/16 21:37 Not Given (Duplicate Order): fentanyl (pf)50 mcg IVP once sp4 23:49 Drug: Ondansetron IVP 4 mg IVP once; over 2 minutes Route: IVP; Site: Other; bp 04/17 00:03 Follow up: Response: No adverse reaction bp 04/16 23:49 Drug: guaiFENesin PO Liquid 15 ml PO once Route: PO; bp 04/17 00:03 Follow up: Response: No adverse reaction bp 04/16 23:49 Drug: diphenhydrAMINE PO 12.5 mg PO once Route: PO; bp 04/17 00:03 Follow up: Response: No adverse reaction bp 04/16 23:50 Drug: Acetaminophen-Codeine PO (300 mg-30 mg) 2 tabs PO once; RASS on ADMIN: Combtv4, bp Very Agttd3, Agttd2, Rstlss1, AlertClm0, Drwsy-1, Lt Sdtn-2, Mod Sdtn-3, Dp Sdtn-4, UnArsble-5 Route: PO; 04/17 00:03 Follow up: Response: No adverse reaction bp 04/16 23:50 Drug: Ibuprofen PO 400 mg PO once Route: PO; bp 04/17 00:03 Follow up: Response: No adverse reaction bp Disposition Summary: 04/16/23 23:11 Discharge Ordered Notes: Location: Home sp4 Problem: new sp4 Symptoms: have improved sp4 Condition: Stable sp4 Diagnosis - Acute COVID-19, acute viral bronchitis, acute systemic viral illness sp4 Followup: sp4 - With: Private Physician - When: 5 - 6 days - Reason: Recheck today's complaints Discharge Instructions: - Discharge Summary Sheet sp4 - COVID-19 sp4 Forms: - Prescription Opioid Use sp4 - Patient Portal Instructions sp4 Prescriptions: - Paxlovid 300 mg (150 mg x 2)-100 mg Oral Tablet, Dose Pack - take 1 dose pack by ORAL route as directed on dose pack take TWO 150 mg tablets sp4 of nirmatrelvir with ONE 100 mg tablet of ritonavir twice daily for 5 days; 1 Pack; Refills: 0, Product Selection Permitted - acetaminophen-codeine 300-15 mg Oral tablet - take 1 tablet by ORAL route every 8 hours PRN headache or cough; 20 tablet; sp4 Refills: 0, Product Selection Permitted - ondansetron 4 mg Oral Tablet,disintegrating - take 1 tablet by ORAL route every 8 hours PRN nausea; 30 tablet; Refills: 0, sp4 Product Selection Permitted - Ibuprofen 600 mg Oral Tablet - take 1 tablet by ORAL route every 6 hours As needed PRN fever or body aches; 30 sp4 tablet; Refills: 0, Product Selection Permitted - Tessalon Perles 100 mg Oral Capsule - take 1 capsule by ORAL route every 6 hours As needed PRN cough; 30 capsule; sp4 Refills: 0, Product Selection Permitted Signatures: Dispatcher [employer] Devonte Fuentes, RN RN Nicolás Flores MD MD sp4 Madeleine Clinton RN RN me1 Corrections: (The following items were deleted from the chart) 04/16 21:23 21:09 PMHx: Hypertension; or1 or1 : 21:09 PMHx: Hypothyroidism; or1 me1 :23 21:09 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 sp4 sp4 22:03 21:22 Abdomen Pelvis Wo Con+CT.RAD.BRZ ordered. EDMS EDMS
--- NOTE | 2023-04-16 23:12 | ER ---
Nurse's Notes [facility] Name: Danish Lock Age: 88 yrs Sex: Male : 1935 Arrival Date: 04/16/2023 Time: 20:32 Bed 19 Private MD: Diagnosis: Acute COVID-19, acute viral bronchitis, acute systemic viral illness Presentation: 04/16 23:01 Chief complaint: Patient states: c/o headache, congestion, generalized weakness since pa1 Sunday. Coronavirus screen:. Ebola Screen: No symptoms or risks identified at this time. Initial Sepsis Screen: Does the patient meet any 2 criteria? No. Patient's initial sepsis screen is negative. Does the patient have a suspected source of infection? No. Patient's initial sepsis screen is negative. Risk Assessment: Do you want to hurt yourself or someone else? Patient reports no desire to harm self or others. Onset of symptoms was April 13, 2023. 23:01 Method Of Arrival: Wheelchair [facility] 23:01 Acuity: ELÍAS 4 me1 Triage Assessment: 04/17 00:02 General: Appears in no apparent distress. Behavior is calm, cooperative, appropriate bp for age. Pain: Denies pain. Respiratory: Reports cough that is. Historical: - Allergies: 04/16 23:05 No Known Allergies; me1 - PMHx: 23:05 Hypertensive disorder; Hypothyroidism; me1 - PSHx: 23:05 Stented artery; pacemaker; Operative procedure on knee; cataract surgery; me1 - Immunization history:: Adult Immunizations up to date. - Social history:: Smoking status: Patient/guardian denies using tobacco, but has a distant history of tobacco abuse. - Family history:: not pertinent. Screenin/19 00:01 [facility] ED Fall Risk Assessment (Adult) History of falling in the last 3 months, bp including since admission No falls in past 3 months (0 pts). Abuse screen: Denies threats or abuse. Denies injuries from another. Nutritional screening: No deficits noted. Tuberculosis screening: No symptoms or risk factors identified. Assessment: 00:01 Reassessment: PT DC HOME VIA WC. Cardiovascular: Patient's skin is warm and dry. bp Respiratory: Airway is patent Breath sounds are coarse bilaterally. Vital Signs: 04/16 23:01 BP 176 / 80; Pulse 58; Resp 20; Temp 99(TE); Pulse Ox 100% on R/A; Weight 92.08 kg; me1 Height 5 ft. 10 in. ; Pain 5/10; 04/17 00:02 BP 176 / 82; Pulse 66; Resp 16; Pulse Ox 100% ; bp 04/16 23:01 Body Mass Index 29.13 (92.08 kg, 177.8 cm) pa1 04/16 23:01 Pain Scale: Adult pa1 Chelsea Coma Score: 08:26 Eye Response: spontaneous(4). Motor Response: obeys commands(6). Verbal Response: sp4 oriented(5). Total: 15. ED Course: 04/16 20:37 Patient arrived in ED. rv1 20:39 Nicolás Smith MD is Attending Physician. sp4 21:09 Triage completed. me1 21:15 XRAY Chest (1 view) In Process Unspecified. EDMS 21:32 Influenza Screen (a \T\ B) Sent. bc6 21:32 SARS RAPID Sent. bc6 21:32 Basic Metabolic Panel Sent. bc6 21:32 CBC with Diff Sent. bc6 21:32 LFT's Sent. bc6 21:32 Magnesium Sent. bc6 21:32 NT PRO-BNP Sent. bc6 21:32 PT-INR Sent. bc6 21:32 Troponin HS Sent. bc6 21:32 Inserted saline lock: 20 gauge in left forearm, using aseptic technique. Blood bc6 collected. 23:05 Arm band placed on Patient placed in waiting room. me1 23:07 Devonte Guevara, RN is Primary Nurse. bp 04/17 00:01 Patient has correct armband on for positive identification. Bed in low position. Call bp light in reach. Side rails up X2. 00:02 No provider procedures requiring assistance completed. IV discontinued, intact, bp bleeding controlled, No redness/swelling at site. Pressure dressing applied. Administered Medications: 04/16 21:37 Not Given (Duplicate Order): fentanyl (pf)50 mcg IVP once sp4 23:49 Drug: Ondansetron IVP 4 mg IVP once; over 2 minutes Route: IVP; Site: Other; bp 04/17 00:03 Follow up: Response: No adverse reaction bp 04/16 23:49 Drug: guaiFENesin PO Liquid 15 ml PO once Route: PO; bp 04/17 00:03 Follow up: Response: No adverse reaction bp 04/16 23:49 Drug: diphenhydrAMINE PO 12.5 mg PO once Route: PO; bp 04/17 00:03 Follow up: Response: No adverse reaction bp 04/16 23:50 Drug: Acetaminophen-Codeine PO (300 mg-30 mg) 2 tabs PO once; RASS on ADMIN: Combtv4, bp Very Agttd3, Agttd2, Rstlss1, AlertClm0, Drwsy-1, Lt Sdtn-2, Mod Sdtn-3, Dp Sdtn-4, UnArsble-5 Route: PO; 04/17 00:03 Follow up: Response: No adverse reaction bp 04/16 23:50 Drug: Ibuprofen PO 400 mg PO once Route: PO; bp 04/17 00:03 Follow up: Response: No adverse reaction bp Outcome: 04/16 23:11 Discharge ordered by . ambrocio 04/17 00:01 Discharged to home via wheelchair, with family, bp Condition: stable Discharge instructions given to patient, family, Instructed on discharge instructions, follow up and referral plans. medication usage, Demonstrated understanding of instructions, follow-up care, medications, Prescriptions given X 4, 00:03 Patient left the ED. 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; pa1 me1 21:09 PMHx: Osteoarthritis; pa1 me1 21:09 PMHx: Chronic back pain; pa1 pa1 21:09 Immunization history: Adult Immunizations up to date, [place] [id number] 21:09 Social history: Smoking status: Patient/guardian denies using tobacco, but has a [facility] distant history of tobacco abuse, [facility] 21:09 Arm band placed on Patient placed in waiting room, [facility] 21:03 Chief complaint: Spouse and/or significant other states: c/o lower abdominal pa1 pain, lower back pain and pain to BLE that has gotten so severe that he can not walk. pa1 21:03 Coronavirus screen: Vaccine status: Patient reports being unvaccinated. [place] [id number] 21: Ebola Screen: No symptoms or risks identified at this time. [place] [id number] 21: Initial Sepsis Screen: Does the patient meet any 2 criteria? No. Patient's [facility] initial sepsis screen is negative. Does the patient have a suspected source of infection? No. Patient's initial sepsis screen is negative. [facility] 21: Risk Assessment: Do you want to hurt yourself or someone else? Patient reports no [facility] desire to harm self or others. [facility] 21: Onset of symptoms is unknown. [place] [address] 21: Method Of Arrival: Ambulatory [place] [address] 21: BP 141 / 73; Pulse 100bpm; Resp 17bpm; Pulse Ox 100% RA; Temp 98.2F Temporal; pa1 65.32 kg; Height 5 ft. 6 in.; BMI: 23.2; Pain 10/10, Adult; [facility] 21:03 Acuity: ELÍAS 3 [place] [address]
[2023-04-16] MEDS ORDERED: CODEINE 30MG/APAP 300MG TAB ONE (23:24)
[2023-04-16] MEDS ORDERED: guaiFENesin 100 MG/5 ML UCUP ONE (23:24)
[2023-04-16] MEDS ORDERED: IBUPROFEN 400 MG TAB ONE (23:24)
[2023-04-16] MEDS ORDERED: FENTANYL CITR 100 MCG/2 ML ONE (23:24)
[2023-04-16] MEDS ORDERED: DIPHENHYDRAMINE 12.5MG/5ML LIQ ONE (23:25)
[2023-04-16] MEDS ORDERED: ONDANSETRON 4 MG/2 ML VIAL ONE (23:25)
[2023-04-17 02:14] VITALS: TEMP 99; O2SAT 100
[2023-04-17 02:16] VITALS: BP 176/82
--- NOTE | 2023-04-18 14:39 | EKG ---
Test Date: 2023-04-16 Test Time: 21:36:35 Lacquer Shader: BARBARA MEASUREMENT RESULTS: Intervals: Rate: 60 CT: QRSD: 216 QT: 498 QTc: 498 [place]: P: CT: QRS: -82 T: 94 INTERPRETIVE STATEMENTS: AV sequential or dual chamber electronic pacemaker Compared to ECG 04/24/2022 09:17:48 No significant changes Electronically Signed On 04-18-23 14:33:21 CDT by Solis Lott
== END 2023-04-17 00:03 | disposition home or self-care (01) ==
LOC: ER 20:32
DX: U07.1 COVID-19 (principal); J20.8 Acute bronchitis due to other specified organisms; I10 Essential (primary) hypertension; Z95.0 Presence of cardiac pacemaker
CPT/HCPCS: 93005; 85025; 80048; 36415; 83735; 85610; 80076; 84484; 83880; 87804 ×2; 71045; 96374; 99284; 87811; Q0163; J3010; J2405